=== PATIENT | male | born 1935 | race Caucasian/White ===

== ENCOUNTER 2016-09-07 19:42 | Inpatient (IN) ==
[2016-09-07] MEDS ORDERED: DICYCLOMINE 20 MG/2 ML AMP IM ONE ×2 (20:14→20:47)
[2016-09-07] MEDS ORDERED: METOCLOPRAMIDE 10 MG/2 ML VIAL IV STA (20:14)
[2016-09-07] MEDS ORDERED: PANTOPRAZOLE 40 MG VIAL IV STA (20:14)
[2016-09-07] MEDS ORDERED: ONDANSETRON 4 MG/2 ML VIAL IV STA (20:14)
--- NOTE | 2016-09-07 20:20 | Emergency Department Note ---
Arrival - Arrival Chief Complaint: Chest Pain Stated Complaint: SWOLLEN KNEES/FLUID/STOMACH PAINS/CHEST PAINS ED Nursing Triage Note: pt to triage , pt was c/o cp this morning along with lower ext swelling . pt seen dr marino. this morning. pt had labs/ ekg this am. pt states he is week and swelling to lower ext. pcp spoke with dr ugzman and told to come to ed. pt hr in 130. pt was to start cardizem in am. Mode of Arrival: Wheelchair Limitations: No Limitations Source: Patient Time Seen by Provider: 09/07/16 20:14 - History of Present Illness HPI Narrative: This 81-year-old white male presents with several months of progressive pedal edema, dyspnea on exertion, and generalized weakness. Today he had transient left-sided chest pain associated with nausea and vomiting but no diaphoresis or shortness of breath for which he went to his primary care physician. In association with these symptoms he has had some left lower quadrant abdominal pain without chills, fever, or diarrhea. The patient and the family denies any history of diverticulitis. Because of the complaints of chest pain Dr. Guzman was called by the primary care physician and he advised the patient to go the emergency room. Currently the patient is in no acute medical distress. Onset (ago): month(s) (Patient presents months after onset of symptoms) Allergies/Adverse Reactions: Allergies Allergy/AdvReac Type Severity Reaction Status Date / Time dexamethasone AdvReac Severe Palpitation Verified 09/07/16 19:57 s Home Medications: Home Medications Medication Instructions Recorded Confirmed Type Allopurinol 100 mg PO DAILY 05/19/15 09/07/16 History Bisoprolol Fumarate 5 mg PO DAILY 05/19/15 09/07/16 History HYDROcodone/ACETAMIN 10-325 [[place] 1 tablet PO BID PRN 05/19/15 09/07/16 History 10-325] Nitroglycerin Sl Tab [Nitrostat] 0.4 mg SL Q5M PRN 05/19/15 09/07/16 History Omeprazole 20 mg PO BEDTIME 05/19/15 09/07/16 History Rosuvastatin [Crestor] 5 mg PO DAILY 05/19/15 09/07/16 History Venlafaxine [Effexor] 75 mg PO BID 05/19/15 09/07/16 History rOPINIRole [Requip] 1 mg PO BEDTIME 05/19/15 09/07/16 History traZODone [Desyrel] 50 mg PO BEDTIME 05/19/15 09/07/16 History Aspirin EC Tab 81 mg PO DAILY 09/07/16 09/07/16 History Cetirizine HCl [Cetirizine Tab] 10 mg PO DAILY 09/07/16 09/07/16 History Diphenoxylate/Atrop 2.5-0.025 1 tablet PO QID PRN 09/07/16 09/07/16 History [Lomotil Tab] Furosemide Tab [Lasix Tab] 40 mg PO 1200 09/07/16 09/07/16 History Furosemide Tab [Lasix Tab] 60 mg PO DAILY 09/07/16 09/07/16 History Linagliptin [Tradjenta] 5 mg PO DAILY 09/07/16 09/07/16 History Losartan Potassium 12.5 mg PO DAILY 09/07/16 09/07/16 History Tiotropium [place] [Spiriva 4 gm IH BID 09/07/16 09/07/16 History Respimat] Warfarin [Coumadin] 2.5 mg PO SUTUWETHSA 09/07/16 09/07/16 History Warfarin [Coumadin] 5 mg PO MOFR 09/07/16 09/07/16 History dilTIAZem HCl [Diltiazem ER (24 120 mg PO DAILY 09/07/16 09/07/16 History hr)] Review of System - Review of System 12 point system: reviewed and no additional remarkable complaints except as stated - Review of System Respiratory: Present: as per HPI Cardiovascular: Present: as per HPI Gastrointestinal: Present: as per HPI Medical,Surgical,& Family Hx - Medical History Cardio: History of: Cardiac Dysrhythmia, CHF, CAD, Hypertension, [place], Pacemaker Psychological: History of: Depression Neurology: History of: Cerebrovascular Accident, Migraine, Vertigo No history of: Seizures HEENT: History of: Eye Problem (CATARACTS), Dental Problems (FULL UPPER AND LOWER DENTURES) Endocrine: History of: Diabetes Mellitus (NIDDM) Respiratory: History of: Obstructive Sleep Apnea, Pneumonia, Respiratory Problems (EMPHYSEMA) Renal: History of: Renal Problems (has mild renal insufficiency, stageII) Genitourinary: History of: Bladder Problem, Prostate Problems (PROSTATE CA) Gastrointestinal: History of: GERD, Gastrointestinal Bleed, Hemorrhoids, Polyps Musculoskeletal: History of: Back/Neck Problems, Herniated Disk, Musculoskeletal Problems (OSTEOARTHRITIS) - Surgical History Cardiac Surgeries: Sugical HX of: Cardiac Catheterization, Cardiac Surgery ( OPEN HEART SURGERY) Thoracic Surgeries: Patient denies;: Lobectomy HEENT Surgeries: Surgical HX of: Eye Surgery (CATARACTS) Patient denies: Tonsilectomy & Adenoidectomy Abdominal Surgeries: Surgical HX of: Colonoscopy - Family History Family History: Reports;: Family Cancer, Family Diabetes, Family Heart Disease, Family Hypertension, Family Stroke - Social History Smoking Status: Former smoker Frequency of Alcohol Use: None Type of Drug Use: None Exam Physical Examination: GENERAL: Well developed, well nourished elderly white male in no acute distress. HEENT: Normocephalic. No trauma. Moist mucous membranes. EOMI. PERRLA. ENT NML NECK: Supple. No adenopathy. CARDIAC: Regular. No murmurs. Heart rate 120 CHEST: Clear to auscultation. No respiratory distress. O2 sat 95% ABDOMEN: Soft. Nontender. Active bowel sounds. EXTREMITIES: No trauma. Normal ROM. 2+ pedal edema. SKIN: No diaphoresis. No rash. NEURO: Alert. Oriented 3. Motor, sensory, vibratory intact. No focal deficits. Vital Signs: Vital Signs Temperature 97.6 F 09/07/16 19:49 Pulse Rate 132 H 09/07/16 19:49 Respiratory Rate 20 09/07/16 19:49 Blood Pressure 105/72 09/07/16 19:49 Course - Reevaluation(s) Reevaluation #1: Advised patient and family of the necessity of hospitalization for diuresis and stabilization. - Consultations Consultation #1: Discussed with hospitalist service who will admit for further evaluation treatment. Results - Labs CBC & BMP: 09/07/16 20:38 09/07/16 20:38 Labs: I reviewed the lab and noted the azotemic numbers in the absence of a white count - Impressions EKG: Sinus tachycardia at 125 with first-degree AV block and nonspecific intraventricular conduction delay. Likewise noted was right ventricular hypertrophy with diffuse nonspecific ST changes and probable old lateral infarct. No acute injury pattern was noted. - Diagnostic Findings Procedure: Abdominal x-ray: image reviewed by me, report reviewed by me ( Nonspecific gas and feces. No acute disease noted), Chest x-ray: image reviewed by me, report reviewed by me (Bilateral infiltrates and right-sided effusion) Disposition Clinical Impression: Congestive heart failure, Bilateral pneumonia, Renal insufficiency Case discussed with: patient, patient's family Disposition: Still a Patient Condition: Guarded Time of Disposition: 21:32
--- NOTE | 2016-09-07 20:21 | EKG Report ---
Stationary ECG Study [facility] ER Test Date: 09/07/2016 7:55:47 PM Pat Name: IRA OSBORN Department: Room: Gender: M Territory Service Representative: [place] : 1935 Requested by: Vasu Bradley Order Number: [id number] Reading MD: USHA KAN Intervals [place] Rate: 128 P: 37 FL: 215 QRS: 117 QRSD: 149 T: -78 QT: 432 QTc: 508 Interpretive Statements SINUS TACHYCARDIA WITH FIRST DEGREE AV BLOCK NONSPECIFIC INTRAVENTRICULAR CONDUCTION BLOCK RIGHT VENTRICULAR HYPERTROPHY POSSIBLE LATERAL INFARCT, AGE UNDETERMINED Electronically Signed On 09-10-16 15:05:52 CDT by USHA KAN [email or web address]
[2016-09-07] MEDS ORDERED: METOPROLOL TARTRATE 5 MG/5 ML VIAL IV STA ×2 (20:23→20:52)
[2016-09-07 20:41] LABS: Basophils % 0.4 % (0.0-0.8); Eosinophils # 0.3 10*3/uL (0.0-0.87); Eosinophils % 3.3 % (0.00-10.9); Hematocrit 34.3 VOL% (42.0-52.0); Hemoglobin 10.9 GM/DL (14.0-18.0); Immature Granulocytes % 0.4 %; Immature Granulocytes Absolute 0.03 #; Lymphocytes # 1.8 10*3/uL (1.4-4.0); Lymphocytes % 22.6 % (21.2-54.2); Mean Corpuscular HGB Conc 31.8 GM/DL (32-36); Mean Corpuscular Hemoglobin 29 PG (27-34); Mean Corpuscular Volume 91.2 FL (87-102); Mean Platelet Volume 11.2 FL (9.6-12.0); Monocytes # 0.9 10*3/uL (0.11-0.8); Monocytes % 11.8 % (1.7-12.7); Neutrophils # 4.8 10*3/uL (1.4-7.4); Neutrophils % 61.5 % (38.7-73.9); Platelet Count 163 T/CUMM (130-400); Red Blood Count 3.76 MC/CUMM (3.8-5.5); Red Cell Distribution Width 14.6 % (9.3-17.3); White Blood Count 7.8 T/CUMM (4-12)
[2016-09-07] MEDS ORDERED: ONDANSETRON 4 MG/2 ML VIAL ONE (20:46)
[2016-09-07] MEDS ORDERED: METOCLOPRAMIDE 10 MG/2 ML VIAL ONE (20:46)
[2016-09-07] MEDS ORDERED: PANTOPRAZOLE 40 MG VIAL IV ONE (20:46)
[2016-09-07] MEDS ORDERED: METOPROLOL TARTRATE 5 MG/5 ML VIAL IV ONE (20:47)
--- NOTE | 2016-09-07 20:51 | XRay Report ---
History is chest pain Comparison 07/11/2015 The heart is mildly enlarged with pacemaker present There are increasing the right greater than left reticular nodular pulmonary opacities and small right effusion superimposed on chronic changes Impression: right greater than left infiltrates versus asymmetric edema PROCEDURE INTERPRETED AT [facility] DEPARTMENT OF RADIOLOGY Final Report Signed by: Dr. Wendie Voss
[2016-09-07 20:55] LABS: INR 2.5; Partial Thromboplastin Time 35.2 SECS (0-40)
[2016-09-07 20:56] LABS: PT Patient Result 27.7 SECS
--- NOTE | 2016-09-07 20:58 | XRay Report ---
Abdomen, 2 views History is abdominal pain Mild air scattered in the bowel without small bowel dilatation, free air, or organomegaly seen seen Bilateral iliac stents are present. Impression: Nonspecific bowel gas pattern PROCEDURE INTERPRETED AT [facility] DEPARTMENT OF RADIOLOGY Final Report Signed by: Dr. Wendie Voss
[2016-09-07 21:03] LABS: Lactic Acid 1.9 MMOL/L (0.4-2.0)
[2016-09-07] MEDS ORDERED: LEVOFLOXACIN INJ 750 MG in PREMIX 1 EACH IV STA (21:03)
[2016-09-07 21:13] LABS: Alanine Aminotransferase 53 U/L (16-61); Albumin 3.3 G/DL (3.4-5.0); Alkaline Phosphatase 143 U/L (45-117); Amylase 22 U/L (25-115); Aspartate Amino Transferase 82 U/L (0-37); Blood Urea Nitrogen 35 MG/DL (7-18); Glucose 118 MG/DL (74-106); Osmolality,Calculated 291.1 MOS/KG (273-304); Sodium 142 MMOL/L (136-145); Total Protein 7.1 G/DL (6.4-8.3); Troponin I Only 0.016 NG/ML (0.00-0.045)
[2016-09-07 21:35] LABS: Apearance,Urine CLEAR (Clear); Bilirubin,Urine Negative (Negative); Blood, Urine Negative (Negative); Glucose,Urine (UA) Negative (Negative); Hyaline Casts,Urine 23 /LPF (0-3); Ketones,Urine Negative (Negative); Mucus,Urine Occasional /LPF (Occasional); Nitrite,Urine Negative (Negative); Protein,Urine Negative; RBC,Urine <1 /HPF (0-4); Squamous Epithelial Cell,Urine Occasional /HPF (0-10); Urine Color Yellow (Yellow); Urine Specific Gravity 1.011 (1.001-1.035); Urine Urobilinogen < 2.0 EU/DL (0.2-1.0); WBC,Urine <1 /HPF (0-6)
[2016-09-07] MEDS ORDERED: LEVOFLOXACIN INJ 150 ML IV ONE (22:07)
--- NOTE | 2016-09-07 22:21 | Hospitalist History & Physical ---
Assessment and Plan (1) Pneumonia Status: Acute Current Visit: Yes (2) Dyspnea on exertion Status: Acute Current Visit: Yes (3) PAD (peripheral artery disease) Status: Acute Current Visit: No (4) Pacemaker Status: Acute Current Visit: No (5) Chronic renal insufficiency, stage II (mild) Status: Acute Current Visit: No (6) Status post aorto-coronary artery bypass graft Status: Acute Current Visit: No (7) COPD (chronic obstructive pulmonary disease) Status: Acute Current Visit: No (8) CHF (congestive heart failure) Status: Acute Assessment and plan: Plan for this patient will be admission to our service. Patient needs to be on telemetry. We will check cardiac enzymes. We will treat the pneumonia. Will have to be observant of his INR daily and hold his Coumadin for now. Will consult his [facility] cardiology for their input on him. Seems to be a combination of both congestive heart failure and pneumonia Current Visit: No History of Present Illness Chief complaint: Chest pain, swelling, shortness of breath History of present illness: Mr. Trejo is a 81 year old male with multiple medical problems including coronary artery disease, congestive heart failure,'s stroke, prostate cancer, COPD, peripheral vascular disease, carotid disease and pacemaker placement who comes to the hospital today with multiple complaints. Patient's reports that for the past month patient has had some difficulties with a lot of issues. She said that it just seems like is more confused lately. That he is having these problems with swelling. Particularly his upper thighs and lower legs. He has also been complaining about shortness of breath. There has been some reported chest pain. Dr. Rodriguez she is office called Dr. Acosta today and Dr. Acosta recommended that they come up to our hospital for further evaluation. Patient had an evaluation in the emergency room. He has a combination of a pneumonia and pulmonary edema. I was consulted to admit the patient. Home Medications Medication Instructions Recorded Confirmed Type Allopurinol 100 mg PO DAILY 05/19/15 09/07/16 History Bisoprolol Fumarate 5 mg PO DAILY 05/19/15 09/07/16 History HYDROcodone/ACETAMIN 10-325 [[place] 1 tablet PO BID PRN 05/19/15 09/07/16 History 10-325] Nitroglycerin Sl Tab [Nitrostat] 0.4 mg SL Q5M PRN 05/19/15 09/07/16 History Omeprazole 20 mg PO BEDTIME 05/19/15 09/07/16 History Rosuvastatin [Crestor] 5 mg PO DAILY 05/19/15 09/07/16 History Venlafaxine [Effexor] 75 mg PO BID 05/19/15 09/07/16 History rOPINIRole [Requip] 1 mg PO BEDTIME 05/19/15 09/07/16 History traZODone [Desyrel] 50 mg PO BEDTIME 05/19/15 09/07/16 History Aspirin EC Tab 81 mg PO DAILY 09/07/16 09/07/16 History Cetirizine HCl [Cetirizine Tab] 10 mg PO DAILY 09/07/16 09/07/16 History Diphenoxylate/Atrop 2.5-0.025 1 tablet PO QID PRN 09/07/16 09/07/16 History [Lomotil Tab] Furosemide Tab [Lasix Tab] 40 mg PO 1200 09/07/16 09/07/16 History Furosemide Tab [Lasix Tab] 60 mg PO DAILY 09/07/16 09/07/16 History Linagliptin [Tradjenta] 5 mg PO DAILY 09/07/16 09/07/16 History Losartan Potassium 12.5 mg PO DAILY 09/07/16 09/07/16 History Tiotropium [place] [Spiriva 4 gm IH BID 09/07/16 09/07/16 History Respimat] Warfarin [Coumadin] 2.5 mg PO SUTUWETHSA 09/07/16 09/07/16 History Warfarin [Coumadin] 5 mg PO MOFR 09/07/16 09/07/16 History dilTIAZem HCl [Diltiazem ER (24 120 mg PO DAILY 09/07/16 09/07/16 History hr)] Allergies Allergy/AdvReac Type Severity Reaction Status Date / Time dexamethasone AdvReac Severe Palpitation Verified 09/07/16 19:57 s Medical,Surgical,& Family Hx - Medical History Cardio: History of: Cardiac Dysrhythmia, CHF, CAD, Hypertension, [place], Pacemaker Psychological: History of: Depression Neurology: History of: Cerebrovascular Accident, Migraine, Vertigo No history of: Seizures HEENT: History of: Eye Problem (CATARACTS), Dental Problems (FULL UPPER AND LOWER DENTURES) Endocrine: History of: Diabetes Mellitus (NIDDM) Respiratory: History of: Obstructive Sleep Apnea, Pneumonia, Respiratory Problems (EMPHYSEMA) Renal: History of: Renal Problems (has mild renal insufficiency, stageII) Genitourinary: History of: Bladder Problem, Prostate Problems (PROSTATE CA) Gastrointestinal: History of: GERD, Gastrointestinal Bleed, Hemorrhoids, Polyps Musculoskeletal: History of: Back/Neck Problems, Herniated Disk, Musculoskeletal Problems (OSTEOARTHRITIS) - Surgical History Cardiac Surgeries: Sugical HX of: Cardiac Catheterization, Cardiac Surgery ( OPEN HEART SURGERY) Thoracic Surgeries: Patient denies;: Lobectomy HEENT Surgeries: Surgical HX of: Eye Surgery (CATARACTS) Patient denies: Tonsilectomy & Adenoidectomy Abdominal Surgeries: Surgical HX of: Colonoscopy - Family History Family History: Reports;: Family Cancer, Family Diabetes, Family Heart Disease, Family Hypertension, Family Stroke - Social History Smoking Status: Former smoker Frequency of Alcohol Use: None Type of Drug Use: None 12 point system: reviewed and no additional remarkable complaints except as stated Exam - Constitutional Vitals: Period Temp Pulse Resp BP Sys/West Pulse Ox Last 24 Hr 97.6 F-97.6 F 131-132 20-20 105-105/72-72 General appearance: normal weight - Head Head exam: Present: normal inspection - Eye Eye exam: Present: EOMI Pupils: Present: JADON - ENT ENT exam: Present: normal exam - Neck Neck exam: Present: normal inspection - Respiratory Respiratory exam: Present: rales, rhonchi - Cardiovascular Cardiovascular exam: Present: tachycardia - GI/Abdominal GI/Abdominal exam: Present: normal bowel sounds - Extremities Exam Extremities exam: Present: edema - Back Exam Back exam: Present: normal inspection - Neurological Exam Neurological exam: Present: alert, oriented X3 Results - Labs CBC & BMP: 09/07/16 20:38 09/07/16 20:38
[2016-09-07] MEDS ORDERED: MAGNESIUM SULF RIDER 2 GM in PREMIX 1 EACH IV PRN (22:24)
[2016-09-07] MEDS ORDERED: MAGNESIUM SULF RIDER 4 GM in PREMIX 1 EACH IV PRN (22:24)
[2016-09-07] MEDS ORDERED: ONDANSETRON 4 MG/2 ML VIAL IV PRN (22:24)
[2016-09-07] MEDS ORDERED: DIPHENOXYLATE/ATROPINE 2.5-0.025 MG TABLET PO PRN (22:32)
[2016-09-08] MEDS: rOPINIRole 1 MG TABLET PO SCH ×2 (00:14→20:44)
[2016-09-08] MEDS: cefTRIAXone 1,000 MG in SODIUM CHLORIDE 0.9% 100 ML IV SCH ×2 (00:27→23:34)
[2016-09-08] MEDS: AZITHROMYCIN INJ 500 MG in SODIUM CHLORIDE 0.9% 250 ML IV SCH (01:08)
[2016-09-08 07:00] LABS: Basophils % 0.2 % (0.0-0.8); Eosinophils # 0.1 10*3/uL (0.0-0.87); Eosinophils % 0.8 % (0.00-10.9); Hematocrit 36.1 VOL% (42.0-52.0); Hemoglobin 11.1 GM/DL (14.0-18.0); Immature Granulocytes % 0.5 %; Immature Granulocytes Absolute 0.04 #; Lymphocytes # 1.7 10*3/uL (1.4-4.0); Lymphocytes % 19.4 % (21.2-54.2); Mean Corpuscular HGB Conc 30.7 GM/DL (32-36); Mean Corpuscular Hemoglobin 29 PG (27-34); Mean Corpuscular Volume 93.5 FL (87-102); Mean Platelet Volume 11.6 FL (9.6-12.0); Monocytes # 1.1 10*3/uL (0.11-0.8); Monocytes % 12.8 % (1.7-12.7); Neutrophils # 5.8 10*3/uL (1.4-7.4); Neutrophils % 66.3 % (38.7-73.9); Platelet Count 143 T/CUMM (130-400); Red Blood Count 3.86 MC/CUMM (3.8-5.5); Red Cell Distribution Width 14.7 % (9.3-17.3); White Blood Count 8.8 T/CUMM (4-12)
[2016-09-08 07:14] LABS: INR 3.2; PT Patient Result 35.9 SECS
[2016-09-08 07:34] LABS: Calcium 8.8 MG/DL (8.5-10.1); Osmolality,Calculated 288.4 MOS/KG (273-304); Potassium 4.1 MMOL/L (3.5-5.1); Total Protein 6.7 G/DL (6.4-8.3)
[2016-09-08 07:35] LABS: Troponin I Only 0.037 NG/ML (0.00-0.045)
[2016-09-08] MEDS: IPRATROPIUM 500 MCG/2.5 ML NEB RESP TX SCH ×4 (07:48→19:50)
[2016-09-08] MEDS ORDERED: ROSUVASTATIN 10 MG TABLET PO SCH (09:00)
[2016-09-08] MEDS ORDERED: DILTIAZEM CD 120 MG CAPSULE PO SCH (09:00)
[2016-09-08] MEDS ORDERED: FUROSEMIDE 40 MG TABLET PO SCH ×2 (09:00→12:00)
[2016-09-08 12:19] LABS: Bilirubin,Total 0.5 MG/DL (0.2-1.0)
--- NOTE | 2016-09-08 12:30 | Hospitalist Progress Note ---
Hospitalist: Subjective Interval history: Patient denies any chest pain, shortness of breath, nausea, or vomiting today. He reports he is hungry. Exam - Constitutional Vitals: Period Temp Pulse Resp BP Sys/West Pulse Ox Last 24 Hr 96.3 F-97.7 F 101-132 15-22 94-123/54-83 92-99 Exam: Awake, alert, and oriented to person, place and situation in no acute distress Irregularly irregular rate and rhythm with a 1/6 systolic murmur. No rubs. Clear to auscultation anteriorly diminished at the bases nonlabored breathing noted Abdomen is soft nontender nondistended positive bowel sounds no organomegaly or masses appreciated Warm and well-perfused no clubbing or cyanosis he does have +2 pitting edema of the lower extremities bilaterally Neuro exam was nonlocalizing Results - Labs CBC & BMP: 09/08/16 06:46 09/08/16 06:46 - Impressions (1)Possible Community acquired bacterial Pneumonia possibly due to GPC or GNR in a patient with COPD Status: Acute Current Visit: Yes -CXR: right greater than left infiltrates versus asymmetric edema - Cont Rocephin and Azithromycin - On Ipratropium bromide inhaled - F/U blood cultures (2) Acute on chronic systolic CHF exacerbation (congestive heart failure) Status: Acute - on Oral Lasix BID. Watch I and O closely. Daily weight. On BB. No ACEi/ARB due to elevated creatinine. Serial labs. Cardiology to see. Elevate lower extremities (3) Chronic atrial fibrillation s/p pacemaker with supratherapeutic INR - on Coumadin but currently holding due to elevated INR. Cont Cardizem and BB for rate control. Serial INR (4) PAD (peripheral artery disease) Status: Chronic Current Visit: No - ASA. Hold statin due to elevated LFTs. (5) CAD Status post aorto-coronary artery bypass graft Status: Chronic Current Visit: No -ASA, BB. Hold statin for now due to elevated LFTs (6) Elevated liver transaminases -Check serial LFTs. -Hold statin. -If continues to increase, check RUQ U/S and viral hepatitis panel. Quality Measures - Stroke Symptom Onset Unknown: No
--- NOTE | 2016-09-08 12:33 | Cardiology Consult Note ---
Assessment and Plan - Time spent with patient Time spent with patient: Greater than 30 minutes (1) Congestive heart failure (CHF) Status: Acute Assessment and plan: SEE PLAN OF CARE LISTED BELOW. Current Visit: Yes Qualifiers: Congestive heart failure type: combined Congestive heart failure chronicity : acute on chronic Qualified Code(s): I50.43 - Acute on chronic combined systolic (congestive) and diastolic (congestive) heart failure (2) Coronary artery disease Status: Chronic Assessment and plan: SEE PLAN OF CARE LISTED BELOW. Current Visit: Yes (3) Chronic atrial fibrillation Status: Chronic Assessment and plan: SEE PLAN OF CARE LISTED BELOW. Current Visit: Yes (4) History of pacemaker Status: Chronic Assessment and plan: SEE PLAN OF CARE LISTED BELOW. Current Visit: Yes (5) History of stroke Status: Chronic Assessment and plan: SEE PLAN OF CARE LISTED BELOW. Current Visit: Yes (6) Hypertension Status: Chronic Assessment and plan: SEE PLAN OF CARE LISTED BELOW. Current Visit: Yes (7) Dyslipidemia Status: Chronic Assessment and plan: SEE PLAN OF CARE LISTED BELOW. Current Visit: Yes (8) Chronic kidney disease Status: Chronic Assessment and plan: SEE PLAN OF CARE LISTED BELOW. Current Visit: Yes (9) Elevated liver enzymes Status: Acute Assessment and plan: SEE PLAN OF CARE LISTED BELOW. Current Visit: Yes (10) Sleep apnea Status: Chronic Assessment and plan: SEE PLAN OF CARE LISTED BELOW. Current Visit: Yes (11) Pneumonia Status: Acute Assessment and plan: SEE PLAN OF CARE LISTED BELOW. Current Visit: Yes (12) Status post aorto-coronary artery bypass graft Status: Chronic Assessment and plan: SEE PLAN OF CARE LISTED BELOW. Current Visit: No (13) Chronic anticoagulation Status: Chronic Assessment and plan: SEE PLAN OF CARE LISTED BELOW. Current Visit: Yes History of Present Illness - Data of Consult Patient: known to practice within the last 3 years Consult date: 09/08/16 Requesting Physician: Dandre Gonzales Primary care physician: Roberto Khan - Consult Narrative Reason for consult: Congestive heart failure History of present illness: Wall Attendant: Dr. Acosta PCP: Dr. Khan Mr. Trejo is a 81 year old male with known history of coronary artery disease , routinely followed by Dr. Acosta. Patient presented to the emergency department yesterday with complaints of shortness of breath and lower extremity swelling. Patient has a past medical history of coronary artery disease, congestive heart failure (systolic), chronic atrial fibrillation ( anticoagulated with Coumadin), CVA, COPD, peripheral vascular disease, carotid disease (status post carotid endarterectomy), pacemaker, hypertension, dyslipidemia and chronic kidney disease. Patient underwent heart catheterization May 2015 with the following impressions noted: Impression: Significant disease in all 3 vessels Critical disease in at least 3 lesions in the proximal mid and mid LAD along with calcification of the LAD Multiple lesions in the left circumflex with calcification-ostial, multiple mid vessel lesions, occluded distal circumflex with collaterals from the right coronary Occluded proximal right coronary artery with right to right and [id number] collaterals Occluded vein graft to the second and first obtuse marginal--may have been recent, based on symptoms, within the last 6 weeks or so Mild to moderate global left ventricular systolic function, left ejection fraction about 45% Inferobasal akinesis Mildly ectatic aortic root with no significant aortic regurgitation Small infrarenal abdominal aortic aneurysm-incidentally noted on the aortogram Mild mitral regurgitation Moderate elevation of LVEDP, 20 mmHg Angiogram right femoral artery Angio-Seal of the right femoral artery Patient was in medically treated. However, medical therapy failed and patient subsequently underwent coronary bypass grafting July 2015 with [place] to circumflex and right internal mammary graft to LAD. Patient presented to [facility] emergency department yesterday afternoon with complaints of worsening lower extremity swelling, weakness, fatigue and dyspnea on exertion. He reports that the symptoms have continued to progress over the past 2 months. He tells me that he was admitted to [facility] approximately 2 months ago with a stomach virus. Family in the room tells me that he has not been on himself ever since being discharged in July. He confirms that he has not been able to sleep well for quite some time due to orthopnea and PND. Yesterday, he developed very mild type of chest pain while he was sitting down. He describes as a sharp pain that only lasted 1 minute. He reports that this is the only time that he has experienced chest pain in quite some time. Yesterday, he had an appointment with Dr. Khan. Dr. Burns increased patient's Lasix dose from 40 mg daily to 40 mg at noon and 60 mg every morning. He also contacted Dr. Acosta to give him an update on his patient. At that point, Dr. Acosta recommended that he be admitted to [facility] for further evaluation. Patient denies fever, chills, nausea, melena and hematochezia. He confirms abdominal distention, cough, orthopnea, dyspnea on exertion, lower extremity edema and PND. Patient has been admitted under hospitalist's service and housed in the telemetry unit. Cardiology has been consulted to further assist with patient's congestive heart failure. Of note, patient recently underwent sleep study. AutoPap with 8 cm H2O-20 cm H2O was ordered. However, he still has not received his CPAP machine. At this point, Dr. Acosta would like to consult Dr. Shepard so he can arrange Mr. Trejo to have CPAP while he is here in the hospital. Dr. Shepard has evaluated patient and we will arrange for patient to have a CPAP tonight. Patient was seen and examined on the telemetry unit. He is resting in bed in no acute distress, requiring oxygen at 2 L via nasal cannula. Patient is currently without chest pain, heaviness and tightness. Per secured entrance monitor, he is in atrial fibrillation with rapid ventricular response, heart rate of 120. Chest x-ray reveals pneumonia versus pulmonary edema. BNP 571. INR is mildly supratherapeutic at 3.2. Creatinine is noted to be 2.2 with a BUN of 43. Liver enzymes are mildly elevated. I have discussed with Dr. Acosta, at this point we will attempt to rate control him. I have added digoxin IV now , repeat in 6 hours. His creatinine will be monitored closely. Have also changed his Cardizem to 60 mg every 6 hours, will hold for systolic blood pressure less than 95 at dose. Aldactone has been added to patient's medication regimen, will hold for systolic blood pressure less than 95 at dose. Will monitor daily weights and strict I's and O's. Will further optimize patient's heart failure medication regimen as his blood pressure will allow. ASSESSMENT/PLAN: 1. CONGESTIVE HEART FAILURE, MIXED, SYSTOLIC AND DIASTOLIC, ACUTE ON CHRONIC - Most recent ejection fraction, May 2015 is 45%. LVEDP May 2015 was 20 mmHg. I have ordered an echocardiogram in order to reevaluate patient's LV and diastolic function. At this point, we will continue patient's current Lasix dosing as it was just increased yesterday per Dr. Khan and add low- dose Aldactone. Continue beta-ani. Avoiding TAPAN inhibitor and ARB due to fear of worsening renal function. Patient's blood pressure is borderline low, we will watch this closely. Strict I's and O's and daily weights. Will further optimize patient's heart failure medication regimen once patient's blood pressure will allow. 2. CORONARY ARTERY DISEASE - Patient has history of coronary artery disease with history of bypass grafting July 2015 with [place] to circumflex and right internal mammary to LAD. This appears to be clinically stable. Patient is without symptoms concerning for angina, cardiac biomarkers have been negative and EKG is without ischemic changes. At this time we will continue aspirin, beta-ani and lipid-lowering agent. 3. CHRONIC ATRIAL FIBRILLATION - Patient is currently in atrial fibrillation with a rapid ventricular response, heart rates in the 120s. I have discussed with Dr. Acosta and at this point, we will attempt to rate control him. I will give a one-time dose of digoxin 0.25 mg IV now, repeat in 6 hours. Will monitor his creatinine closely. Cardizem will be changed to 60 mg p.o. now and every 6 hours. Will hold Cardizem for systolic blood pressure less than 95 at dose as patient's blood pressure is borderline low. Historically, patient has been anticoagulated with Coumadin. Today's INR is 3.2. Coumadin is currently on hold. We will continue to hold Coumadin as patient's INR is supratherapeutic today. Will check INR daily and resume Coumadin when able. 4. CHRONIC ANTICOAGULATION - Patient is chronically anticoagulated with Coumadin due to chronic atrial fibrillation and history of CVA. INR today is 3.2. Daily INR. Will reinitiate Coumadin once INR will allow. 5. HISTORY OF SINGLE CHAMBER PACEMAKER - Continue current plan of care. 6. HISTORY OF STROKE - Continue current plan of care with anticoagulation. Daily INR. 7. HYPERTENSION - This is clinically stable. Continue current plan of care. 8. DYSLIPIDEMIA - Continue current plan of care with lipid lowering agent. Will add lipid panel to patient's morning labs. 9. CHRONIC KIDNEY DISEASE - Baseline appears to be around 1.5. Creatinine today is 2.2. Will avoid TAPAN inhibitor and ARB due to fear of worsening renal function. 10. POSSIBLE PNUEMONIA - Afebrile. White blood cell count within normal limits. Patient is being treated empirically with IV antibiotics per hospital medicine. Further management will be deferred to attending. 11. ELEVATED LIVER ENZYMES - We will continue to monitor these with daily liver function studies. May need to discontinue statin if these continue to rise. Consider consulting GI. 12. SLEEP APNEA - CPAP nightly. Dr. Shepard has seen patient and has arranged patient to have CPAP tonight. Further plan and addendum to follow per Dr. Acosta. CC: Xenia Stephenson MD - Home Medications and Allergies Home Medications: Home Medications Medication Instructions Recorded Confirmed Type Allopurinol 100 mg PO DAILY 05/19/15 09/07/16 History Bisoprolol Fumarate 5 mg PO DAILY 05/19/15 09/07/16 History HYDROcodone/ACETAMIN 10-325 [[place] 1 tablet PO BID PRN 05/19/15 09/07/16 History 10-325] Nitroglycerin Sl Tab [Nitrostat] 0.4 mg SL Q5M PRN 05/19/15 09/07/16 History Omeprazole 20 mg PO BEDTIME 05/19/15 09/07/16 History Rosuvastatin [Crestor] 5 mg PO DAILY 05/19/15 09/07/16 History Venlafaxine [Effexor] 75 mg PO BID 05/19/15 09/07/16 History rOPINIRole [Requip] 1 mg PO BEDTIME 05/19/15 09/07/16 History traZODone [Desyrel] 50 mg PO BEDTIME 05/19/15 09/07/16 History Aspirin EC Tab 81 mg PO DAILY 09/07/16 09/07/16 History Cetirizine HCl [Cetirizine Tab] 10 mg PO DAILY 09/07/16 09/07/16 History Diphenoxylate/Atrop 2.5-0.025 1 tablet PO QID PRN 09/07/16 09/07/16 History [Lomotil Tab] Furosemide Tab [Lasix Tab] 40 mg PO 1200 09/07/16 09/07/16 History Furosemide Tab [Lasix Tab] 60 mg PO DAILY 09/07/16 09/07/16 History Linagliptin [Tradjenta] 5 mg PO DAILY 09/07/16 09/07/16 History Losartan Potassium 12.5 mg PO DAILY 09/07/16 09/07/16 History Tiotropium [place] [Spiriva 4 gm IH BID 09/07/16 09/07/16 History Respimat] Warfarin [Coumadin] 2.5 mg PO SUTUWETHSA 09/07/16 09/07/16 History Warfarin [Coumadin] 5 mg PO MOFR 09/07/16 09/07/16 History dilTIAZem HCl [Diltiazem ER (24 120 mg PO DAILY 09/07/16 09/07/16 History hr)] Pramoxine HCl [Sarna Sensitive 1 applic TOP QID PRN 09/08/16 09/08/16 History Lotion] Allergies/Adverse Reactions: Allergies Allergy/AdvReac Type Severity Reaction Status Date / Time dexamethasone AdvReac Severe Palpitation Verified 09/07/16 19:57 s - Constitutional Constitutional: Present: fatigue, lethargy, malaise, weakness, weight gain. Absent: chills, fever(s), headache(s) - Cardiovascular Cardiovascular: Present: chest pain at rest, dyspnea on exertion, edema, orthopnea, PND. Absent: claudication, diaphoresis, radiating jaw, neck or arm pain, lightheadedness, palpitations - Respiratory Respiratory: Present: cough, dyspnea on exertion, snoring. Absent: hemoptysis, wheezing, pain on inspiration - Gastrointestinal Gastrointestinal: Present: abdominal pain, bloating, change in bowel habits, vomiting. Absent: coffee ground emesis, heartburn, hematemesis, hematochezia, loose stools, melena, nausea - Neurological Neurological: Absent: abnormal gait, abnormal speech, behavioral changes, dizziness, headache(s), numbness, paresthesias, syncope - Hematologic/Lymphatic Hematologic/Lymphatic: Absent: easy bleeding, easy bruising, lymphadenopathy Medical,Surgical,& Family Hx - Medical History Cardio: History of: Cardiac Dysrhythmia, CHF, CAD, Hypertension, SC, Pacemaker Psychological: History of: Depression Neurology: History of: Cerebrovascular Accident, Migraine, Vertigo No history of: Seizures HEENT: History of: Eye Problem (CATARACTS), Dental Problems (FULL UPPER AND LOWER DENTURES) Endocrine: History of: Diabetes Mellitus (NIDDM), Dyslipidemia Respiratory: History of: Obstructive Sleep Apnea, Pneumonia, Respiratory Problems (EMPHYSEMA) Renal: History of: Renal Problems (has mild renal insufficiency, stageII) Genitourinary: History of: Bladder Problem, Prostate Problems (PROSTATE CA) Gastrointestinal: History of: GERD, Gastrointestinal Bleed, Hemorrhoids, Polyps Musculoskeletal: History of: Back/Neck Problems, Herniated Disk, Musculoskeletal Problems (OSTEOARTHRITIS) Other: History of: Cancer (prostate ca) - Surgical History Cardiac Surgeries: Sugical HX of: Cardiac Catheterization, Cardiac Surgery ( OPEN HEART SURGERY x2 2016 and 1993) HEENT Surgeries: Surgical HX of: Eye Surgery (CATARACTS) Abdominal Surgeries: Surgical HX of: Abdominal Surgery, Colonoscopy - Family History Family History: Reports;: Family Cancer, Family Diabetes, Family Heart Disease, Family Hypertension, Family Stroke - Social History Smoking Status: Former smoker Frequency of Alcohol Use: None Type of Drug Use: None Marital Status: Lives With:: Children Functional capacity: independent ambulation Physical Examination Vital Signs Temp Pulse Resp BP 97.6 F 131 H 20 105/72 09/07/16 19:49 09/07/16 19:49 09/07/16 19:49 09/07/16 19:49 Other: General: Appears well with no apparent distress. Pleasant and cooperative. Appears comfortable. HEENT: PERRL, normocephalic, atraumatic. Mucous membranes moist. No jaundice noted. Conjunctiva moist and clear, sclerae anicteric Neck: No JVD/HJR, no thyromegaly or lymphadenopathy noted. No carotid bruit appreciated Cardiac: Irregular rhythm. 2/6 systolic murmur Lungs: Clear to auscultation with decreased breath sounds bilateral bases without accessory muscle use to assist the respiratory pattern. Currently requiring oxygen via nasal cannula. Abdomen: Soft, bowel sounds normoactive. No abdominal bruit or thrill noted. Extremities: No clubbing, cyanosis noted. 3+ bilateral lower extremity edema. Upper extremity pulses 2+. Lower extremity pulses 2+. Skin: No unusual lesions or rashes. No skin breakdown appreciated. Neuro: Awake, alert and oriented 3. Moves all extremities well without hemiparesis or paralysis. Result/EKG - Labs CBC & BMP: 09/08/16 06:46 09/08/16 06:46 Lab Results: I have reviewed the past 24 hour labs Labs: Laboratory Results - last 24 hr 09/07/16 09/07/16 09/07/16 20:29 20:38 20:38 WBC 7.8 RBC 3.76 L Hgb 10.9 L Hct 34.3 L MCV 91.2 MCH 29 MCHC 31.8 L RDW 14.6 Plt Count 163 MPV 11.2 Neut % (Auto) 61.5 Lymph % (Auto) 22.6 Maury % (Auto) 11.8 Eos % (Auto) 3.3 Baso % (Auto) 0.4 Neut # (Auto) 4.8 Lymph # (Auto) 1.8 Maury # (Auto) 0.9 H Eos # (Auto) 0.3 Baso # (Auto) 0.0 Immature Gran % 0.4 Nucleated RBC % 0.0 Immature Gran # 0.03 Nucleated RBCs # 0.00 INR PT Patient/Control Mix Circ Anticoag PTT Sodium 142 Potassium 4.0 Chloride 107 Carbon Dioxide 22 Anion Gap 17.0 H BUN 35 H Creatinine 1.90 H GFR Calculation 35 BUN/Creatinine Ratio 18.00 Glucose 118 H Calculated Osmolality 291.1 Lactic Acid 1.9 Calcium 9.0 Total Bilirubin 0.40 AST 82 H ALT 53 Alkaline Phosphatase 143 H Total Creatine Kinase 164 CK-MB (CK-2) 3.2 Troponin I 0.016 B-Natriuretic Peptide Total Protein 7.1 Albumin 3.3 L Globulin 3.8 H Albumin/Globulin Ratio 0.8 L Amylase 22 L Lipase 71.0 L Urine Color Yellow Urine Appearance Clear Urine pH 5.0 Ur Specific [place] 1.011 Urine Protein Negative Urine Glucose (UA) Negative Urine Ketones Negative Urine Blood Negative Urine Nitrate Negative Urine Bilirubin Negative Urine Urobilinogen < 2.0 H Urine Leukocytes Negative Urine RBC <1 Urine WBC <1 Ur Squamous Epith Cells Occasional Hyaline Casts 23 Urine Mucus Occasional Ur Culture Indicated? Not indicated 09/07/16 09/07/16 09/08/16 20:38 20:38 06:46 WBC RBC Hgb Hct MCV MCH MCHC RDW Plt Count MPV Neut % (Auto) Lymph % (Auto) Maury % (Auto) Eos % (Auto) Baso % (Auto) Neut # (Auto) Lymph # (Auto) Maury # (Auto) Eos # (Auto) Baso # (Auto) Immature Gran % Nucleated RBC % Immature Gran # Nucleated RBCs # INR 2.5 3.2 PT Patient/Control Mix 27.7 D 35.9 D Circ Anticoag PTT 35.2 D Sodium Potassium Chloride Carbon Dioxide Anion Gap BUN Creatinine GFR Calculation BUN/Creatinine Ratio Glucose Calculated Osmolality Lactic Acid Calcium Total Bilirubin AST ALT Alkaline Phosphatase Total Creatine Kinase CK-MB (CK-2) Troponin I B-Natriuretic Peptide 571 H Total Protein Albumin Globulin Albumin/Globulin Ratio Amylase Lipase Urine Color Urine Appearance Urine pH Ur Specific [place] Urine Protein Urine Glucose (UA) Urine Ketones Urine Blood Urine Nitrate Urine Bilirubin Urine Urobilinogen Urine Leukocytes Urine RBC Urine WBC Ur Squamous Epith Cells Hyaline Casts Urine Mucus Ur Culture Indicated? 09/08/16 09/08/16 09/08/16 06:46 06:46 06:46 WBC 8.8 RBC 3.86 Hgb 11.1 L Hct 36.1 L MCV 93.5 MCH 29 MCHC 30.7 L RDW 14.7 Plt Count 143 MPV 11.6 Neut % (Auto) 66.3 Lymph % (Auto) 19.4 L Maury % (Auto) 12.8 H Eos % (Auto) 0.8 Baso % (Auto) 0.2 Neut # (Auto) 5.8 Lymph # (Auto) 1.7 Maury # (Auto) 1.1 H Eos # (Auto) 0.1 Baso # (Auto) 0.0 Immature Gran % 0.5 Nucleated RBC % 0.0 Immature Gran # 0.04 Nucleated RBCs # 0.00 INR PT Patient/Control Mix Circ Anticoag PTT Sodium 140 Potassium 4.1 Chloride 105 Carbon Dioxide 24 Anion Gap 15.1 H BUN 43 H Creatinine 2.20 H GFR Calculation 30 BUN/Creatinine Ratio 19.00 Glucose 89 Calculated Osmolality 288.4 Lactic Acid Calcium 8.8 Total Bilirubin 0.50 AST 127 H ALT 76 H Alkaline Phosphatase 137 H Total Creatine Kinase 172 CK-MB (CK-2) 4.1 H Troponin I 0.037 B-Natriuretic Peptide Total Protein 6.7 Albumin 3.0 L Globulin 3.7 H Albumin/Globulin Ratio 0.8 L Amylase Lipase Urine Color Urine Appearance Urine pH Ur Specific [place] Urine Protein Urine Glucose (UA) Urine Ketones Urine Blood Urine Nitrate Urine Bilirubin Urine Urobilinogen Urine Leukocytes Urine RBC Urine WBC Ur Squamous Epith Cells Hyaline Casts Urine Mucus Ur Culture Indicated? - Diagnostic Findings Procedure: Chest x-ray: report reviewed by me - EKG EKG results: interpreted by me, sinus rhythm EKG shows: tachycardia Quality Measures - Stroke Symptom Onset Unknown: No
--- NOTE | 2016-09-08 12:33 | Sleep Medicine Progress Note ---
Sleep Medicine Subjective Interval history: This patient is known to me from previous sleep evaluation many years ago. He was diagnosed with obstructive sleep apnea but unable to tolerate CPAP. He developed significant heart disease and just recently was reevaluated by Dr. Khan in [place]. He had a sleep study which revealed severe sleep apnea according to his with a diagnostic AHI of 36. The patient was actually to go to sleep clinic today to crop picker his CPAP machine but developed congestive heart failure and was admitted and could not get that machine. Dr. Acosta contacted Dr. Khan and the patient was to be set on AutoPap from 8-20 cm. We will go ahead and empirically set him up on AutoPap to use while hospitalized. Exam (Progress Note) - Constitutional Vitals: Period Temp Pulse Resp BP Sys/West Pulse Ox Last 24 Hr 96.3 F-97.7 F 101-132 15-22 94-123/54-83 92-99 Results - Labs CBC & BMP: 09/08/16 06:46 09/08/16 06:46
[2016-09-08] MEDS ORDERED: DIGOXIN 0.5 MG/2 ML AMP IV ONE ×2 (14:11→21:00)
[2016-09-08] MEDS: VENLAFAXINE 75 MG TABLET PO SCH ×2 (14:51→21:26)
[2016-09-08] MEDS: SPIRONOLACTONE 25 MG TABLET PO SCH (14:52)
[2016-09-08] MEDS: PANTOPRAZOLE 40 MG TABLET PO SCH (14:52)
[2016-09-08] MEDS: BISOPROLOL 5 MG TABLET PO SCH (14:52)
[2016-09-08] MEDS: ASPIRIN EC 81 MG TABLET PO SCH (14:52)
[2016-09-08] MEDS: ALLOPURINOL 100 MG TABLET PO SCH (14:52)
[2016-09-08] MEDS: DILTIAZEM 60 MG TABLET PO SCH ×3 (14:52→23:02)
[2016-09-08] MEDS: CETIRIZINE 10 MG TABLET PO SCH (14:52)
--- NOTE | 2016-09-08 15:28 | XRay Report ---
History short of breath Bilateral decubitus films obtained No significant layering of pleural fluid seen in the left chest There is layering of 1.5 cm of pleural fluid in the right chest. Underlying reticular nodular parenchymal opacities again seen. The heart is enlarged Impression: Small right pleural effusion PROCEDURE INTERPRETED AT [facility] DEPARTMENT OF RADIOLOGY Final Report Signed by: Dr. Wendie Voss
[2016-09-08] MEDS: FUROSEMIDE 40 MG/4 ML VIAL IV SCH (16:13)
--- NOTE | 2016-09-08 19:02 | ECHO Report ---
Vin Trejo 09/08/2016 Exam Date: 14:28 Referring Physician: marlene Palomo Technologist: SHERLYN DUBON Age: 81 Ht (in): 67 Wt (lb): 170 MExam Location: [facility] Gender: Echo [id number]: Dyspnea, unspecified, Atrial fibrillIndications:ation, Presence of cardiac pacemaker, Pneumonia, COPD BP: 107 / 72 HR: 122 Atrial fibrillationRhythm: GoodTechnical Quality: IMPRESSIONS Mild left ventricul ar hypertrophy. Left ventricular ejection fraction is estimated at 30 - 35 %. flat IVS in SA view suggests pulm HTN; 3 + increased right ventricular size. 2 + incr right atrium. The left atrium is 2+ enlarged. Moderate mitral valve regurgitation. Aortic valve sclerosis. Mild aortic valve regurgitation. [id number] tricuspid valve regurgitation. Tricuspid regurgitation velocities suggest a PAP of 34 mmHg. Trace pulmonary valve regurgitation. MEASUREMENTS (Male / Female) Normal Values 2D ECHO LV Diastolic Diameter PLAX 4.7 cm 4.2 - 5.9 / 3.9 - 5.3 cm LV Systolic Diameter PLAX 4.0 cm LV Fractional Shortening PLAX 15.5 % IVS Diastolic Thickness 1.3 cm 0.6 - 1.0 / 0.6 - 0.9 cm LVPW Diastolic Thickness 1.2 cm 0.6 - 1.0 / 0.6 - 0.9 cm RV Internal Dim ED PLAX 3.6 cm Aortic Root Diameter 3.1 cm LA Systolic Diameter LX 4.6 cm 3.0 - 4.0 / 2.7 - 3.8 cm DOPPLER TR Peak Velocity 244.0 cm/s TR Peak Gradient 23.8 mmHg FINDINGS Left Ventricle Normal left ventricular cavity size. Mild left ventricul ar hypertrophy. Left ventricular ejection fraction is estimated at 30 - 35 %. Right Ventricle 3 + increased right ventricular size. Right Atrium 2 + incr right atrium. Left Atrium The left atrium is 2+ enlarged. Mitral Valve Mitral valve sclerosis. Moderate mitral valve regurgitation. Aortic Valve Aortic valve sclerosis. Mild aortic valve regurgitation. Tricuspid Valve Morphologically normal tricuspid valve. Yrwemcif-[id number] tricuspid valve regurgitation. Tricuspid regurgitation velocities suggest a PAP of 34 mmHg. Pulmonic Valve Morphologically normal pulmonic valve. Trace pulmonary valve regurgitation. Pericardium Normal pericardium without effusion. Aorta Normal ascending aorta dimension. Taqueria Acosta MD (Electronically Signed) 08 September 2016 Final Date: 19:01
[2016-09-08] MEDS ORDERED: DILTIAZEM 30 MG TABLET PO ONE (22:31)
[2016-09-09] MEDS: AZITHROMYCIN INJ 500 MG in SODIUM CHLORIDE 0.9% 250 ML IV SCH (00:50)
[2016-09-09 04:50] LABS: Basophils % 0.2 % (0.0-0.8); Eosinophils # 0.3 10*3/uL (0.0-0.87); Eosinophils % 3.7 % (0.00-10.9); Hematocrit 34.3 VOL% (42.0-52.0); Hemoglobin 10.6 GM/DL (14.0-18.0); Immature Granulocytes % 0.3 %; Immature Granulocytes Absolute 0.03 #; Lymphocytes # 2.2 10*3/uL (1.4-4.0); Lymphocytes % 24.8 % (21.2-54.2); Mean Corpuscular HGB Conc 30.9 GM/DL (32-36); Mean Corpuscular Hemoglobin 28 PG (27-34); Mean Platelet Volume 11.6 FL (9.6-12.0); Monocytes # 1.2 10*3/uL (0.11-0.8); Monocytes % 13.7 % (1.7-12.7); NRBC # 0.02 10*3/uL; Neutrophils # 5.1 10*3/uL (1.4-7.4); Neutrophils % 57.3 % (38.7-73.9); Platelet Count 141 T/CUMM (130-400); Red Blood Count 3.73 MC/CUMM (3.8-5.5); Red Cell Distribution Width 14.6 % (9.3-17.3); White Blood Count 8.8 T/CUMM (4-12)
[2016-09-09 05:00] LABS: INR 4.2
[2016-09-09 05:07] LABS: PT Patient Result 48.8 SECS
[2016-09-09 05:19] LABS: Bilirubin,Direct 0.3 MG/DL (0.0-0.20); Bilirubin,Indirect 0.2 MG/DL (0.0-1.0); Bilirubin,Total 0.5 MG/DL (0.2-1.0); Calcium 8.6 MG/DL (8.5-10.1); Magnesium 2.6 MG/DL (1.8-2.4); Osmolality,Calculated 288.5 MOS/KG (273-304); Potassium 4.2 MMOL/L (3.5-5.1); Total Protein 6.5 G/DL (6.4-8.3)
[2016-09-09 05:21] LABS: Albumin 2.9 G/DL (3.4-5.0); Bilirubin,Total 0.7 MG/DL (0.2-1.0); Calcium 8.6 MG/DL (8.5-10.1); Magnesium 2.5 MG/DL (1.8-2.4); Osmolality,Calculated 289.4 MOS/KG (273-304); Phosphorous 3.8 MG/DL (2.5-4.9); Potassium 4.3 MMOL/L (3.5-5.1); Risk Ratio 3.3; Total Protein 6.5 G/DL (6.4-8.3); VLDL CHOLESTEROL 12.8 MG/DL
[2016-09-09 06:56] LABS: Hepatitis A Ab IgM Result Negative (Negative); Hepatitis B Core IgM Result Negative (Negative); Hepatitis B Surface Ag Quant 0.27 Index; Hepatitis B Surface Ag Result Negative (Negative); Hepatitis C Virus Ab Quant 0.15 Index; Hepatitis C Virus Ab Result Negative (Negative)
[2016-09-09] MEDS: IPRATROPIUM 500 MCG/2.5 ML NEB RESP TX SCH ×4 (07:35→18:54)
[2016-09-09] MEDS: PANTOPRAZOLE 40 MG TABLET PO SCH (09:22)
[2016-09-09] MEDS: DILTIAZEM 60 MG TABLET PO SCH ×4 (09:22→21:48)
[2016-09-09] MEDS: SPIRONOLACTONE 25 MG TABLET PO SCH (09:22)
[2016-09-09] MEDS: ASPIRIN EC 81 MG TABLET PO SCH (09:22)
[2016-09-09] MEDS: ALLOPURINOL 100 MG TABLET PO SCH (09:23)
[2016-09-09] MEDS: BISOPROLOL 5 MG TABLET PO SCH ×2 (09:23→21:31)
[2016-09-09] MEDS: CETIRIZINE 10 MG TABLET PO SCH (09:23)
[2016-09-09] MEDS: VENLAFAXINE 75 MG TABLET PO SCH ×2 (09:23→21:29)
[2016-09-09] MEDS: FUROSEMIDE 40 MG/4 ML VIAL IV SCH ×2 (09:24→16:32)
--- NOTE | 2016-09-09 12:18 | Hospitalist Progress Note ---
Hospitalist: Subjective Interval history: SOB better. Still with LE edema. reports itchy red rash on left submammary area and right flank towards the back. Was putting triamcinolone and sarna on it for 2 days with no improvement. No fever. Denies cough. Tolerating po. +BM. Exam - Constitutional Vitals: Period Temp Pulse Resp BP Sys/West Pulse Ox Last 24 Hr 96.7 F-97.7 F 91-129 16-22 105-118/56-84 95-99 Exam: Awake, alert, and oriented to person, place and situation in no acute distress Irregularly irregular rate and rhythm with a 1/6 systolic murmur. No rubs. Clear to auscultation anteriorly diminished at the bases nonlabored breathing noted Abdomen is soft nontender nondistended positive bowel sounds no organomegaly or masses appreciated Warm and well-perfused no clubbing or cyanosis he does have +2 pitting edema of the lower extremities bilaterally Neuro exam was nonlocalizing Skin: erythema rashed macule under left breast and right flank across and mostly on back. Results - Labs CBC & BMP: 09/09/16 04:20 09/09/16 04:20 - Impressions 1)Possible Community acquired bacterial Pneumonia possibly due to GPC or GNR in a patient with COPD Status: Acute Current Visit: Yes -CXR: right greater than left infiltrates versus asymmetric edema - Cont Rocephin and Azithromycin - On Ipratropium bromide inhaled - F/U blood cultures (2) Acute on chronic systolic CHF exacerbation (congestive heart failure) (EF 30 -35% with moderate MR/severe TR) Status: Acute - Cont IV Lasix BID. Will add Albumin for maintain BP as it drops with diuresis. Watch I and O closely. Daily weight. On BB. No ACEi/ARB due to elevated creatinine. Serial labs. Cardiology following. Elevate lower extremities (3) Chronic atrial fibrillation s/p pacemaker with supratherapeutic INR - on Coumadin but currently holding due to elevated INR. Cont Cardizem and BB for rate control. Serial INR. May need vitamin K (low dose) (4) PAD (peripheral artery disease) Status: Chronic Current Visit: No - ASA. Hold statin due to elevated LFTs. (5) CAD Status post aorto-coronary artery bypass graft Status: Chronic Current Visit: No -ASA, BB. Hold statin for now due to elevated LFTs (6) Elevated liver transaminases suspect due to liver congestion due to CHF -Check serial LFTs. -Hold statin. -If continues to increase, check RUQ U/S - viral hepatitis panel negative. (7) CKD stage 3 vs. KATHLEEN on CKD3 - watch creatinine closely with diuresis (8) Erythematous rash ? fungal - start Nystatin and follow-up results DVT prophylaxis- on Coumadin D/W nurse, pt and at bedside. All questions answered. Quality Measures - Stroke Symptom Onset Unknown: No
[2016-09-09] MEDS ORDERED: PHYTONADIONE 5 MG TABLET PO ONE (12:20)
--- NOTE | 2016-09-09 13:19 | Cardiology Progress Note ---
Assessment and Plan - Time spent with patient Time spent with patient: Greater than 30 minutes (1) Congestive heart failure (CHF) Status: Acute Assessment and plan: SEE PLAN OF CARE LISTED BELOW Current Visit: Yes Qualifiers: Congestive heart failure type: combined Congestive heart failure chronicity : acute on chronic Qualified Code(s): I50.43 - Acute on chronic combined systolic (congestive) and diastolic (congestive) heart failure (2) Elevated liver enzymes Status: Acute Assessment and plan: SEE PLAN OF CARE LISTED BELOW Current Visit: Yes (3) Pneumonia Status: Acute Assessment and plan: SEE PLAN OF CARE LISTED BELOW Current Visit: Yes (4) Chronic anticoagulation Status: Chronic Assessment and plan: SEE PLAN OF CARE LISTED BELOW Current Visit: Yes (5) Chronic kidney disease Status: Chronic Assessment and plan: SEE PLAN OF CARE LISTED BELOW Current Visit: Yes Qualifiers: Chronic kidney disease stage: stage 3 (moderate) Qualified Code(s): N18.3 - Chronic kidney disease, stage 3 (moderate) (6) Coronary artery disease Status: Chronic Assessment and plan: SEE PLAN OF CARE LISTED BELOW Current Visit: Yes (7) Dyslipidemia Status: Chronic Assessment and plan: SEE PLAN OF CARE LISTED BELOW Current Visit: Yes (8) History of pacemaker Status: Chronic Assessment and plan: SEE PLAN OF CARE LISTED BELOW Current Visit: Yes (9) History of stroke Status: Chronic Assessment and plan: SEE PLAN OF CARE LISTED BELOW Current Visit: Yes (10) Hypertension Status: Chronic Assessment and plan: SEE PLAN OF CARE LISTED BELOW Current Visit: Yes (11) Sleep apnea Status: Chronic Assessment and plan: SEE PLAN OF CARE LISTED BELOW Current Visit: Yes (12) COPD (chronic obstructive pulmonary disease) Status: Chronic Assessment and plan: SEE PLAN OF CARE LISTED BELOW Current Visit: No (13) Hyperlipidemia Status: Chronic Assessment and plan: SEE PLAN OF CARE LISTED BELOW Current Visit: No (14) PAD (peripheral artery disease) Status: Chronic Assessment and plan: SEE PLAN OF CARE LISTED BELOW Current Visit: No Cardiology - PN: Subj Interval history: TINT LAYER: DR. ACOSTA PCP: DR. SMITH SUMMARY: Mr. Trejo, 81M, was admitted September 07, 2016 with shortness of breath and lower extremity edema. He was diagnosed with acute on chronic congestive heart failure versus CAP. History of known coronary artery disease (see cardiac catheterization May 2015), hypertension, dyslipidemia, peripheral vascular disease. History of ICM (EFnow 35% down from 45% January 2016), chronic atrial fib (takes Coumadin for stroke prevention), CVA, COPD, peripheral vascular disease, carotid disease (status post carotid endarterectomy ), pacemaker, and chronic kidney disease. Patient's coronary artery disease is complicated. He underwent CABG July 2015 ([place] - Cx, JUD[facility] - LAD). Patient was seen and examined on the telemetry unit. He is resting in bed in no acute distress, requiring oxygen at 2 L via nasal cannula. Patient is currently without chest pain, heaviness and tightness. Per fishing vessel deckhand, he is in atrial fibrillation with rapid ventricular response, heart rate of 120. Chest x-ray reveals pneumonia versus pulmonary edema. BNP 571. INR is mildly supratherapeutic at 3.2. Creatinine is noted to be 2.2 with a BUN of 43. Liver enzymes are mildly elevated. I have discussed with Dr. Acosta, at this point we will attempt to rate control him. I have added digoxin IV now , repeat in 6 hours. His creatinine will be monitored closely. Have also changed his Cardizem to 60 mg every 6 hours, will hold for systolic blood pressure less than 95 at dose. Aldactone has been added to patient's medication regimen, will hold for systolic blood pressure less than 95 at dose. Will monitor daily weights and strict I's and O's. Will further optimize patient's heart failure medication regimen as his blood pressure will allow. SEPTEMBER 09, 2016: Echocardiogram reveals: EF 30-35%, moderate mitral regurgitation , PA P 34 mmHg. Shortness of breath is better this morning. Still has lower extremity swelling. I & O does not reflect weight loss. Continues to have atrial fibrillation with rapid ventricular response. Averaging 90-120 bpm. Creatinine 2.0 today, minimally improved overnight. I will add 1 dose IV digoxin this morning. May consider daily low-dose oral digoxin if creatinine improves. Cannot increase beta blockade as blood pressure will not allow. Avoiding TAPAN inhibitor due to fear of worsening renal insufficiency. Statin is being withheld at this time due to elevated liver enzymes. ASSESSMENT/PLAN: 1. CONGESTIVE HEART FAILURE, MIXED, SYSTOLIC AND DIASTOLIC, ACUTE ON CHRONIC - LVEF 35%, NYHA Class III. Continue current plan of care. Daily weights and strict intake and output. Continue with IV Lasix. 2. CORONARY ARTERY DISEASE - Continue ASA, betablocker and, when able, TAPAN. Holding lipid lowering agent due to worsening liver enzymes. 3. CHRONIC ATRIAL FIBRILLATION -remains in A. fib with RVR. Heart rates averaging 90-120 bpm. I will give another dose of IV digoxin today and monitor his heart rate. Unfortunately, cannot increase beta ani as blood pressure will not allow. We will monitor closely due to his renal insufficiency the use of digoxin. INR tomorrow morning. Holding Coumadin as he is supra therapeutic. 4. CHRONIC ANTICOAGULATION -remains supratherapeutic (INR 4.2). Check daily and resume when able 5. HISTORY OF SINGLE CHAMBER PACEMAKER - Continue current plan of care. 6. HISTORY OF STROKE - Continue current plan of care with anticoagulation. Daily INR. 7. HYPERTENSION - adequately controlled. 8. DYSLIPIDEMIA - Holding lipid lowering agent due to recent increase in liver enzymes. 9. CHRONIC KIDNEY DISEASE - Stage II-III. Creatinine 2.0 (improved overnight ). Baseline 1.5. 10. POSSIBLE CAP - treated appropriately with antibiotics. 11. ELEVATED LIVER ENZYMES -continue to rise. Holding lipid-lowering agent. Consider consulting GI, will defer to attending. 12. SLEEP APNEA - CPAP nightly. Dr. Shepard has seen patient and has arranged patient to have CPAP Exam (Progress Note) - Constitutional Vitals: Period Temp Pulse Resp BP Sys/West Pulse Ox Last 24 Hr 96.7 F-97.7 F 91-129 16-22 105-118/56-84 95-99 Exam: General: Appears well with no apparent distress. Pleasant and cooperative. Appears comfortable. HEENT: PERRL, normocephalic, atraumatic. Mucous membranes moist. No jaundice noted. Conjunctiva moist and clear, sclerae anicteric Neck: No JVD/HJR, no thyromegaly or lymphadenopathy noted. No carotid bruit appreciated Cardiac: Irregularly irregular rhythm. 2/6 systolic murmur Lungs: Clear to auscultation with decreased breath sounds bilateral bases without accessory muscle use to assist the respiratory pattern. Currently requiring oxygen via nasal cannula. Abdomen: Soft, bowel sounds normoactive. No abdominal bruit or thrill noted. Extremities: No clubbing, cyanosis noted. 2+ bilateral lower extremity edema. Upper extremity pulses 2+. Lower extremity pulses 2+. Skin: No unusual lesions or rashes. No skin breakdown appreciated. Neuro: Awake, alert and oriented 3. Moves all extremities well without hemiparesis or paralysis. Result/EKG - Labs CBC & BMP: 09/09/16 04:20 09/09/16 04:20 Lab Results: I have reviewed the past 24 hour labs Labs: Laboratory Results - last 24 hr 09/09/16 09/09/16 09/09/16 04:20 04:20 04:20 WBC 8.8 RBC 3.73 L Hgb 10.6 L Hct 34.3 L MCV 92.0 MCH 28 MCHC 30.9 L RDW 14.6 Plt Count 141 MPV 11.6 Neut % (Auto) 57.3 Lymph % (Auto) 24.8 [place] % (Auto) 13.7 H Eos % (Auto) 3.7 Baso % (Auto) 0.2 Neut # (Auto) 5.1 Lymph # (Auto) 2.2 [place] # (Auto) 1.2 H Eos # (Auto) 0.3 Baso # (Auto) 0.0 Immature Gran % 0.3 Nucleated RBC % 0.2 Immature Gran # 0.03 Nucleated RBCs # 0.02 INR 4.2 PT Patient/Control Mix 48.8 D Sodium 140 Potassium 4.3 Chloride 105 Carbon Dioxide 24 Anion Gap 15.3 H BUN 44 H Creatinine 2.10 H GFR Calculation 31 BUN/Creatinine Ratio 20.00 Glucose 106 Calculated Osmolality 289.4 Calcium 8.6 Phosphorus 3.8 Magnesium 2.5 H Total Bilirubin 0.70 Direct Bilirubin Indirect Bilirubin AST 209 H ALT 125 H Alkaline Phosphatase 125 H Total Protein 6.5 Albumin 2.9 L Globulin 3.6 H Albumin/Globulin Ratio 0.8 L Triglycerides Cholesterol LDL Cholesterol VLDL Cholesterol HDL Cholesterol Heart Disease Risk Ratio Hepatitis A IgM Ab Hep Bs Antigen Hep B Core IgM Ab Hepatitis C Antibody 09/09/16 09/09/16 09/09/16 04:20 04:20 04:20 WBC RBC Hgb Hct MCV MCH MCHC RDW Plt Count MPV Neut % (Auto) Lymph % (Auto) [place] % (Auto) Eos % (Auto) Baso % (Auto) Neut # (Auto) Lymph # (Auto) [place] # (Auto) Eos # (Auto) Baso # (Auto) Immature Gran % Nucleated RBC % Immature Gran # Nucleated RBCs # INR PT Patient/Control Mix Sodium 139 Potassium 4.2 Chloride 104 Carbon Dioxide 25 Anion Gap 14.2 BUN 45 H Creatinine 2.00 H GFR Calculation 33 BUN/Creatinine Ratio 22.00 H Glucose 106 Calculated Osmolality 288.5 Calcium 8.6 Phosphorus Magnesium 2.6 H Total Bilirubin Direct Bilirubin Indirect Bilirubin AST ALT Alkaline Phosphatase Total Protein Albumin Globulin Albumin/Globulin Ratio Triglycerides 64 Cholesterol 89 LDL Cholesterol 52.0 VLDL Cholesterol 12.8 HDL Cholesterol 27 L Heart Disease Risk Ratio 3.30 Hepatitis A IgM Ab Negative Hep Bs Antigen Negative Hep B Core IgM Ab Negative Hepatitis C Antibody Negative 09/09/16 04:20 WBC RBC Hgb Hct MCV MCH MCHC RDW Plt Count MPV Neut % (Auto) Lymph % (Auto) [place] % (Auto) Eos % (Auto) Baso % (Auto) Neut # (Auto) Lymph # (Auto) [place] # (Auto) Eos # (Auto) Baso # (Auto) Immature Gran % Nucleated RBC % Immature Gran # Nucleated RBCs # INR PT Patient/Control Mix Sodium Potassium Chloride Carbon Dioxide Anion Gap BUN Creatinine GFR Calculation BUN/Creatinine Ratio Glucose Calculated Osmolality Calcium Phosphorus Magnesium Total Bilirubin 0.50 Direct Bilirubin 0.30 H Indirect Bilirubin 0.2 AST 207 H ALT 125 H Alkaline Phosphatase 125 H Total Protein 6.5 Albumin 3.0 L Globulin Albumin/Globulin Ratio Triglycerides Cholesterol LDL Cholesterol VLDL Cholesterol HDL Cholesterol Heart Disease Risk Ratio Hepatitis A IgM Ab Hep Bs Antigen Hep B Core IgM Ab Hepatitis C Antibody - Diagnostic Findings Procedure: Chest x-ray: report reviewed by me - EKG EKG results: interpreted by me EKG shows: atrial fibrillation Quality Measures - Stroke Symptom Onset Unknown: No
[2016-09-09] MEDS: ALBUMIN 25% 25 GM in PREMIX 1 EACH IV SCH ×2 (13:50→23:57)
[2016-09-09] MEDS ORDERED: DIGOXIN 0.5 MG/2 ML AMP IV SCH (14:00)
[2016-09-09] MEDS: NYSTATIN CREAM 15 GM TUBE TOP SCH ×2 (15:14→21:30)
[2016-09-09] MEDS ORDERED: BISOPROLOL 5 MG TABLET PO ONE (15:37)
[2016-09-09] MEDS: rOPINIRole 1 MG TABLET PO SCH (21:30)
[2016-09-09] MEDS: cefTRIAXone 1,000 MG in SODIUM CHLORIDE 0.9% 100 ML IV SCH (23:20)
[2016-09-10 04:25] LABS: Basophils % 0.2 % (0.0-0.8); Eosinophils # 0.3 10*3/uL (0.0-0.87); Eosinophils % 3.5 % (0.00-10.9); Hematocrit 34.2 VOL% (42.0-52.0); Hemoglobin 10.6 GM/DL (14.0-18.0); Immature Granulocytes % 0.4 %; Immature Granulocytes Absolute 0.04 #; Lymphocytes # 1.9 10*3/uL (1.4-4.0); Lymphocytes % 20.9 % (21.2-54.2); Mean Corpuscular Hemoglobin 29 PG (27-34); Mean Corpuscular Volume 92.4 FL (87-102); Mean Platelet Volume 11.5 FL (9.6-12.0); Monocytes # 1.1 10*3/uL (0.11-0.8); Monocytes % 12.5 % (1.7-12.7); Neutrophils # 5.6 10*3/uL (1.4-7.4); Neutrophils % 62.5 % (38.7-73.9); Platelet Count 136 T/CUMM (130-400); Red Cell Distribution Width 14.6 % (9.3-17.3)
[2016-09-10 04:37] LABS: INR 3.3
[2016-09-10 04:54] LABS: Calcium 9.4 MG/DL (8.5-10.1); Magnesium 2.5 MG/DL (1.8-2.4); Osmolality,Calculated 293.3 MOS/KG (273-304); Potassium 4.8 MMOL/L (3.5-5.1)
[2016-09-10 05:00] LABS: Albumin 3.5 G/DL (3.4-5.0); Bilirubin,Direct 0.4 MG/DL (0.0-0.20); Bilirubin,Indirect 0.8 MG/DL (0.0-1.0); Bilirubin,Total 1.2 MG/DL (0.2-1.0); Total Protein 6.9 G/DL (6.4-8.3)
[2016-09-10 05:17] LABS: PT Patient Result 38.1 SECS
[2016-09-10] MEDS: IPRATROPIUM 500 MCG/2.5 ML NEB RESP TX SCH ×4 (07:57→19:58)
[2016-09-10] MEDS: FUROSEMIDE 40 MG/4 ML VIAL IV SCH ×2 (09:30→16:01)
[2016-09-10] MEDS: SPIRONOLACTONE 25 MG TABLET PO SCH (09:31)
[2016-09-10] MEDS: DILTIAZEM 60 MG TABLET PO SCH ×4 (09:31→21:23)
[2016-09-10] MEDS: AZITHROMYCIN 250 MG TABLET PO SCH (09:32)
[2016-09-10] MEDS: VENLAFAXINE 75 MG TABLET PO SCH ×2 (09:32→21:22)
[2016-09-10] MEDS: ASPIRIN EC 81 MG TABLET PO SCH (09:32)
[2016-09-10] MEDS: ALLOPURINOL 100 MG TABLET PO SCH (09:32)
[2016-09-10] MEDS: PANTOPRAZOLE 40 MG TABLET PO SCH (09:32)
[2016-09-10] MEDS: NYSTATIN CREAM 15 GM TUBE TOP SCH ×3 (09:33→21:23)
[2016-09-10] MEDS ORDERED: BISACODYL 10 MG SUPP RECTAL PRN (09:33)
[2016-09-10] MEDS: BISOPROLOL 5 MG TABLET PO SCH ×2 (09:33→21:22)
[2016-09-10] MEDS: CETIRIZINE 10 MG TABLET PO SCH (09:33)
--- NOTE | 2016-09-10 12:42 | Hospitalist Progress Note ---
Hospitalist: Subjective Interval history: Patient complains of lower abdominal pain and decreased urine output. He reports he is to push on his stomach to empty his bladder. He has not had a bowel movement over the last 24 hours. He did eat some breakfast. Bladder scan was ordered and 300ml seen. Pt was able to void and 700 ml collected. reports abd pain improved. He complained of nausea and received Zofran Exam - Constitutional Vitals: Period Temp Pulse Resp BP Sys/West Pulse Ox Last 24 Hr 97.1 F-97.6 F 58-122 15-22 105-139/6-69 85-98 Exam: GEN: Awake, alert, and oriented to person, place and situation in no acute distress, hearing impairment CV: Irregularly irregular rate and rhythm with a 1/6 systolic murmur. No rubs. LUNGS: Clear to auscultation anteriorly diminished at the bases nonlabored breathing noted Abdomen: is soft, nontender, nondistended, positive bowel sounds. No organomegaly or masses appreciated EXT: Warm and well-perfused no clubbing or cyanosis he does have +2 pitting edema of the lower extremities bilaterally Neuro: exam was nonlocalizing Skin: erythema macules/patch under left breast and right flank across and mostly on back less erythematous. Results - Labs CBC & BMP: 09/10/16 03:58 09/10/16 03:58 - Impressions 1)Possible Community acquired bacterial Pneumonia possibly due to GPC or GNR in a patient with COPD Status: Acute Current Visit: Yes -CXR: right greater than left infiltrates versus asymmetric edema - Cont Rocephin and Azithromycin - On Ipratropium bromide inhaled - F/U blood cultures (2) Acute on chronic systolic CHF exacerbation (congestive heart failure) (EF 30 -35% with moderate MR/severe TR) Status: Acute - Cont IV Lasix BID. Will add Albumin for maintain BP as it drops with diuresis. Watch I and O closely. Daily weight. On BB. No ACEi/ARB due to elevated creatinine. Serial labs. Cardiology following. Elevate lower extremities (3) Chronic atrial fibrillation s/p pacemaker with supratherapeutic INR- INR improving - on Coumadin but currently holding due to elevated INR. Cont Cardizem and BB for rate control. Serial INR. s/p Vitamin K 2.5 mg po x 1 09/09 (4) PAD (peripheral artery disease) Status: Chronic Current Visit: No - ASA. Hold statin due to elevated LFTs. (5) CAD Status post aorto-coronary artery bypass graft Status: Chronic Current Visit: No -ASA, BB. Hold statin for now due to elevated LFTs (6) Elevated liver transaminases suspect due to liver congestion due to CHF -LFTs increasing. Check serial LFTs. -Hold statin. -check RUQ U/S -viral hepatitis panel negative. (7) CKD stage 3 vs. KATHLEEN on CKD3 - watch creatinine closely with diuresis. Creatinine stable (8) Erythematous rash ? fungal - start Nystatin and follow-up results (9) Urinary retention - start flomax. Bladder scan q6h. May stop if voiding ok. (10) Constipation - dulcolax oral/ suppository ordered. DVT prophylaxis- on Coumadin D/W nurse, pt and . All questions answered. I will be away several days. One of my associates will follow in my absence. Quality Measures - Stroke Symptom Onset Unknown: No
--- NOTE | 2016-09-10 17:14 | Cardiology Progress Note ---
Assessment and Plan - Time spent with patient Time spent with patient: Greater than 30 minutes (1) Systolic and diastolic CHF, acute on chronic Status: Acute Assessment and plan: 09/10/16: Heart failure seems symptomatically better Watch creatinine with diuresis. Is minimally increased. These may need to be slightly dry to keep out of heart failure So far, is tolerating the Aldactone well Right lateral left lateral decubitus x-ray showed nothing on the left and minimal on the right. We will not do thoracentesis Treat for pneumonia and heart failure He was encouraged to use his AutoPap anytime he sleeps, even for a nap. He voiced understanding and agrees with the plan. Current Visit: Yes (2) Hypoalbuminemia Status: Acute Current Visit: Yes (3) Congestive heart failure (CHF) Status: Acute Current Visit: Yes Qualifiers: Congestive heart failure type: combined Congestive heart failure chronicity : acute on chronic Qualified Code(s): I50.43 - Acute on chronic combined systolic (congestive) and diastolic (congestive) heart failure (4) Dyspnea on exertion Status: Acute Current Visit: Yes (5) Pneumonia Status: Acute Current Visit: Yes (6) Chronic anticoagulation Status: Chronic Current Visit: Yes (7) Chronic atrial fibrillation Status: Chronic Current Visit: Yes (8) Chronic kidney disease Status: Chronic Current Visit: Yes Qualifiers: Chronic kidney disease stage: stage 3 (moderate) Qualified Code(s): N18.3 - Chronic kidney disease, stage 3 (moderate) (9) Coronary artery disease Status: Chronic Current Visit: Yes (10) History of pacemaker Status: Chronic Current Visit: Yes (11) History of stroke Status: Chronic Current Visit: Yes (12) Hypertension Status: Chronic Current Visit: Yes (13) Sleep apnea Status: Chronic Current Visit: Yes (14) Chronic renal insufficiency, stage II (mild) Status: Acute Current Visit: No (15) Decreased hearing Status: Acute Current Visit: No (16) Diabetes Status: Acute Current Visit: No (17) Pacemaker Status: Acute Current Visit: No (18) CHF (congestive heart failure) Status: Chronic Current Visit: No (19) COPD (chronic obstructive pulmonary disease) Status: Chronic Current Visit: No (20) Hyperlipidemia Status: Chronic Current Visit: No (21) PAD (peripheral artery disease) Status: Chronic Current Visit: No (22) Status post aorto-coronary artery bypass graft Status: Chronic Current Visit: No Cardiology - PN: Subj Interval history: No chest pain. Less short of breath. Exam (Progress Note) - Constitutional Vitals: Period Temp Pulse Resp BP Sys/West Pulse Ox Last 24 Hr 97.3 F-97.6 F 58-108 15-22 105-139/55-69 85-98 Exam: HEENT: Pupils equal, reactive to light and accommodation Neck: NoJVD or bruit Lungs clear to auscultation Heart: irRegular rhythm rate with normal S1 and S2. Apical S4 Abdomen: No hepatosplenomegaly Spine/extremities: No clubbing, cyanosis; mild lower extremity edema Neuro: Nonfocal Psych: No depression or anxiety Result/EKG - Labs CBC & BMP: 09/10/16 03:58 09/10/16 03:58 Lab Results: I have reviewed the past 24 hour labs Labs: Laboratory Results - last 24 hr 09/10/16 09/10/16 09/10/16 03:58 03:58 03:58 WBC 9.0 RBC 3.70 L Hgb 10.6 L Hct 34.2 L MCV 92.4 MCH 29 MCHC 31.0 L RDW 14.6 Plt Count 136 MPV 11.5 Neut % (Auto) 62.5 Lymph % (Auto) 20.9 L [place] % (Auto) 12.5 Eos % (Auto) 3.5 Baso % (Auto) 0.2 Neut # (Auto) 5.6 Lymph # (Auto) 1.9 [place] # (Auto) 1.1 H Eos # (Auto) 0.3 Baso # (Auto) 0.0 Immature Gran % 0.4 Nucleated RBC % 0.0 Immature Gran # 0.04 Nucleated RBCs # 0.00 INR 3.3 PT Patient/Control Mix 38.1 D Sodium 141 Potassium 4.8 Chloride 105 Carbon Dioxide 24 Anion Gap 16.8 H BUN 45 H Creatinine 2.10 H GFR Calculation 32 BUN/Creatinine Ratio 21.00 H Glucose 118 H Calculated Osmolality 293.3 Calcium 9.4 Magnesium 2.5 H Total Bilirubin Direct Bilirubin Indirect Bilirubin AST ALT Alkaline Phosphatase B-Natriuretic Peptide Total Protein Albumin 09/10/16 09/10/16 03:58 03:58 WBC RBC Hgb Hct MCV MCH MCHC RDW Plt Count MPV Neut % (Auto) Lymph % (Auto) [place] % (Auto) Eos % (Auto) Baso % (Auto) Neut # (Auto) Lymph # (Auto) [place] # (Auto) Eos # (Auto) Baso # (Auto) Immature Gran % Nucleated RBC % Immature Gran # Nucleated RBCs # INR PT Patient/Control Mix Sodium Potassium Chloride Carbon Dioxide Anion Gap BUN Creatinine GFR Calculation BUN/Creatinine Ratio Glucose Calculated Osmolality Calcium Magnesium Total Bilirubin 1.20 H Direct Bilirubin 0.40 H Indirect Bilirubin 0.8 AST 223 H ALT 154 H Alkaline Phosphatase 116 B-Natriuretic Peptide 1049 H Total Protein 6.9 Albumin 3.5 Quality Measures - Stroke Symptom Onset Unknown: No
[2016-09-10] MEDS: TAMSULOSIN 0.4 MG CAPSULE PO SCH (21:22)
[2016-09-10] MEDS: BISACODYL 5 MG TABLET PO SCH (21:22)
[2016-09-10] MEDS: rOPINIRole 1 MG TABLET PO SCH (21:22)
[2016-09-11] MEDS: cefTRIAXone 1,000 MG in SODIUM CHLORIDE 0.9% 100 ML IV SCH (03:41)
[2016-09-11 04:03] LABS: Basophils % 0.2 % (0.0-0.8); Eosinophils # 0.4 10*3/uL (0.0-0.87); Eosinophils % 4.7 % (0.00-10.9); Hematocrit 32.7 VOL% (42.0-52.0); Hemoglobin 10.1 GM/DL (14.0-18.0); Immature Granulocytes % 0.5 %; Immature Granulocytes Absolute 0.04 #; Lymphocytes # 1.7 10*3/uL (1.4-4.0); Lymphocytes % 19.9 % (21.2-54.2); Mean Corpuscular HGB Conc 30.9 GM/DL (32-36); Mean Corpuscular Hemoglobin 28 PG (27-34); Mean Corpuscular Volume 90.6 FL (87-102); Mean Platelet Volume 11.6 FL (9.6-12.0); Monocytes % 11.9 % (1.7-12.7); Neutrophils # 5.4 10*3/uL (1.4-7.4); Neutrophils % 62.8 % (38.7-73.9); Platelet Count 137 T/CUMM (130-400); Red Blood Count 3.61 MC/CUMM (3.8-5.5); Red Cell Distribution Width 14.7 % (9.3-17.3); White Blood Count 8.6 T/CUMM (4-12)
[2016-09-11 04:16] LABS: INR 1.7; PT Patient Result 18.7 SECS
[2016-09-11 04:20] LABS: Calcium 8.7 MG/DL (8.5-10.1); Magnesium 2.4 MG/DL (1.8-2.4); Osmolality,Calculated 288.4 MOS/KG (273-304); Potassium 3.5 MMOL/L (3.5-5.1)
[2016-09-11 04:26] LABS: Albumin 3.2 G/DL (3.4-5.0); Bilirubin,Direct 0.3 MG/DL (0.0-0.20); Bilirubin,Indirect 0.5 MG/DL (0.0-1.0); Bilirubin,Total 0.8 MG/DL (0.2-1.0); Total Protein 6.5 G/DL (6.4-8.3)
[2016-09-11] MEDS: IPRATROPIUM 500 MCG/2.5 ML NEB RESP TX SCH ×4 (07:36→19:53)
--- NOTE | 2016-09-11 09:11 | Ultrasound Report ---
Referring Physician: Xenia Stephenson MD Exam: US right upper quadrant Date: September 11, 2016 Reason: Nausea, elevated liver function tests Comparison: None Technique: Grayscale and color flow Doppler images of the right abdomen were obtained. Ultrasound images were captured and stored. Findings: The liver measures 14.3 cm in length. No suspicious hepatic lesion is identified. There is echogenic material within the gallbladder, which is concerning for sludge. There is also a questionable 0.9 cm gallbladder wall polyp. The gallbladder wall is prominent, but this is nonspecific given the presence of ascites. The common bile duct is normal in size, measuring 0.4 cm in diameter. The visualized pancreas is unremarkable. The right kidney measures 10.5 x 4.8 x 4.7 cm. No right hydronephrosis or suspicious renal lesion is identified. There is mild ascites, mainly adjacent to the liver. There is also right pleural fluid. Impression: 1. Gallbladder sludge is present, but there is no convincing sonographic evidence of acute cholecystitis. The gallbladder wall is prominent, but this is nonspecific in the setting of ascites. 2. Questionable 0.9 cm gallbladder wall polyp. Follow-up would be helpful given its size 3. Mild ascites. 4. Right pleural fluid. PROCEDURE INTERPRETED AT [facility] DEPARTMENT OF RADIOLOGY Final Report Signed by: Dr. Yamil Carroll
[2016-09-11] MEDS: SPIRONOLACTONE 25 MG TABLET PO SCH (09:29)
[2016-09-11] MEDS: FUROSEMIDE 40 MG/4 ML VIAL IV SCH ×2 (09:29→17:07)
[2016-09-11] MEDS: CETIRIZINE 10 MG TABLET PO SCH (09:30)
[2016-09-11] MEDS: VENLAFAXINE 75 MG TABLET PO SCH ×2 (09:30→20:13)
[2016-09-11] MEDS: PANTOPRAZOLE 40 MG TABLET PO SCH (09:30)
[2016-09-11] MEDS: AZITHROMYCIN 250 MG TABLET PO SCH (09:30)
[2016-09-11] MEDS: ASPIRIN EC 81 MG TABLET PO SCH (09:30)
[2016-09-11] MEDS: NYSTATIN CREAM 15 GM TUBE TOP SCH ×3 (09:30→20:14)
[2016-09-11] MEDS: DILTIAZEM 60 MG TABLET PO SCH ×3 (09:30→17:07)
[2016-09-11] MEDS: BISOPROLOL 5 MG TABLET PO SCH ×2 (09:30→20:14)
[2016-09-11] MEDS: ALLOPURINOL 100 MG TABLET PO SCH (09:31)
--- NOTE | 2016-09-11 11:08 | Cardiology Progress Note ---
<Heather Clark - Last Filed: 09/11/16 10:19> Assessment and Plan (1) Congestive heart failure (CHF) Status: Acute Assessment and plan: SEE PLAN OF CARE LISTED BELOW. Current Visit: Yes Qualifiers: Congestive heart failure type: systolic Congestive heart failure chronicity : acute on chronic Qualified Code(s): I50.23 - Acute on chronic systolic ( congestive) heart failure (2) Coronary artery disease Status: Chronic Assessment and plan: SEE PLAN OF CARE LISTED BELOW. Current Visit: Yes (3) Chronic atrial fibrillation Status: Chronic Assessment and plan: SEE PLAN OF CARE LISTED BELOW. Current Visit: Yes (4) History of pacemaker Status: Chronic Assessment and plan: SEE PLAN OF CARE LISTED BELOW. Current Visit: Yes (5) History of stroke Status: Chronic Assessment and plan: SEE PLAN OF CARE LISTED BELOW. Current Visit: Yes (6) Hypertension Status: Chronic Assessment and plan: SEE PLAN OF CARE LISTED BELOW. Current Visit: Yes (7) Dyslipidemia Status: Chronic Assessment and plan: SEE PLAN OF CARE LISTED BELOW. Current Visit: Yes (8) Chronic kidney disease Status: Chronic Assessment and plan: SEE PLAN OF CARE LISTED BELOW. Current Visit: Yes Qualifiers: Chronic kidney disease stage: stage 3 (moderate) Qualified Code(s): N18.3 - Chronic kidney disease, stage 3 (moderate) (9) Elevated liver enzymes Status: Acute Assessment and plan: SEE PLAN OF CARE LISTED BELOW. Current Visit: Yes (10) Sleep apnea Status: Chronic Assessment and plan: SEE PLAN OF CARE LISTED BELOW. Current Visit: Yes (11) Pneumonia Status: Acute Assessment and plan: SEE PLAN OF CARE LISTED BELOW. Current Visit: Yes (12) Status post aorto-coronary artery bypass graft Status: Chronic Assessment and plan: SEE PLAN OF CARE LISTED BELOW. Current Visit: No (13) Chronic anticoagulation Status: Chronic Assessment and plan: SEE PLAN OF CARE LISTED BELOW. 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 KAN PCP: DR. SMITH SUMMARY: Mr. Trejo, 81M, was admitted September 07, 2016 with shortness of breath and lower extremity edema. He was diagnosed with acute on chronic congestive heart failure versus CAP. History of known coronary artery disease (see cardiac catheterization May 2015), hypertension, dyslipidemia, peripheral vascular disease. History of ICM (EFnow 35% down from 45% January 2016), chronic atrial fib (takes Coumadin for stroke prevention), CVA, COPD, peripheral vascular disease, carotid disease (status post carotid endarterectomy ), pacemaker, and chronic kidney disease. Patient's coronary artery disease is complicated. He underwent CABG July 2015 ([place] - Cx, JUDY - LAD). Upon arrival to [place] emergency department he was noted to be in atrial fibrillation with rapid ventricular response, heart rates as high as 120. Chest x-ray revealed pneumonia versus pulmonary edema. BNP 571 on admission. INR was mildly supratherapeutic on admission, 3.2. Subsequently, Coumadin was placed on hold until INR was stable. Patient also has history of chronic kidney disease, stage II to stage III, baseline creatinine around 1.5. Holding lipid-lowering agent at this time due to elevated liver enzymes. Echocardiogram was done this admission which revealed EF 30-35% (this has decreased from 45% January 2016), moderate mitral regurgitation, PAP 34 mmHg. SEPTEMBER 11, 2016 UPDATE: Patient was seen and examined on the telemetry unit. He is resting in bed, cpap in use, in no acute distress. Patient continues to improve, reports that his breathing is much better. He still has lower extremity swelling. I & O does not reflect weight loss despite the fact that he is diuresing well with IV Lasix. Rate is better controlled today, continues to be in atrial fibrillation with heart rates in the 60s. Creatinine has trended down from 2.1 to 1.8 this morning. Avoiding TAPAN inhibitor due to fear of worsening renal insufficiency. Statin is being withheld at this time due to elevated liver enzymes. Vital signs are stable. INR today is 1.7, we will reinitiate patient's preadmission Coumadin dosage. Daily INRs. Further plan and addendum to follow per Dr. Lam. ASSESSMENT/PLAN: 1. CONGESTIVE HEART FAILURE, SYSTOLIC, ACUTE ON CHRONIC - LVEF 35% (this is down from 45% January 2016), NYHA Class III. Continue current plan of care with IV Lasix, Aldactone and beta-ani. Daily weights and strict intake and output. Avoiding TAPAN inhibitor and ARB due to fear of worsening renal function. 2. CORONARY ARTERY DISEASE - Continue ASA, betablocker and, when able, TAPAN. Holding lipid lowering agent due to worsening liver enzymes. 3. CHRONIC ATRIAL FIBRILLATION - Remains in A. fib with RVR. He is now rate controlled, heart rates in the 60's. INR this morning is stable at 1.7. At this point, I will reinitiate patient's home dose of Coumadin. Monitor with daily INR's. 4. CHRONIC ANTICOAGULATION - INR 1.7 today. At this point I will reinitiate patient's home dose of Coumadin. Will monitor with daily INR and adjust as needed. 5. HISTORY OF SINGLE CHAMBER PACEMAKER - Continue current plan of care. 6. HISTORY OF STROKE - Continue current plan of care with anticoagulation. Daily INR. 7. HYPERTENSION - Adequately controlled. 8. DYSLIPIDEMIA - Holding lipid lowering agent due to recent increase in liver enzymes. 9. CHRONIC KIDNEY DISEASE - Stage II-III. Creatinine 1.8 (improved overnight ). Baseline 1.5. 10. POSSIBLE CAP - Treated appropriately with antibiotics. 11. ELEVATED LIVER ENZYMES - Will continue to monitor. Total and direct bili also elevated. Holding lipid-lowering agent. Consider consulting GI, will defer to attending. 12. SLEEP APNEA - CPAP nightly. Exam (Progress Note) - Constitutional Vitals: Period Temp Pulse Resp BP Sys/West Pulse Ox Last 24 Hr 97.1 F-98.3 F 61-101 16-20 101-142/51-79 84-98 Exam: General: Appears well with no apparent distress. Pleasant and cooperative. Appears comfortable. HEENT: PERRL, normocephalic, atraumatic. Mucous membranes moist. No jaundice noted. Conjunctiva moist and clear, sclerae anicteric Neck: No JVD/HJR, no thyromegaly or lymphadenopathy noted. No carotid bruit appreciated Cardiac: Irregularly irregular rhythm. 2/6 systolic murmur Lungs: Clear to auscultation with decreased breath sounds bilateral bases without accessory muscle use to assist the respiratory pattern. Abdomen: Soft, bowel sounds normoactive. No abdominal bruit or thrill noted. Extremities: No clubbing, cyanosis noted. 2+ bilateral lower extremity edema. Upper extremity pulses 2+. Lower extremity pulses 2+. Skin: No unusual lesions or rashes. No skin breakdown appreciated. Neuro: Awake, alert and oriented 3. Moves all extremities well without hemiparesis or paralysis. Result/EKG - Labs CBC & BMP: 09/11/16 03:30 09/11/16 03:30 Lab Results: I have reviewed the past 24 hour labs Labs: Laboratory Results - last 24 hr 09/10/16 09/11/16 09/11/16 19:21 03:30 03:30 WBC 8.6 RBC 3.61 L Hgb 10.1 L Hct 32.7 L MCV 90.6 MCH 28 MCHC 30.9 L RDW 14.7 Plt Count 137 MPV 11.6 Neut % (Auto) 62.8 Lymph % (Auto) 19.9 L Weston % (Auto) 11.9 Eos % (Auto) 4.7 Baso % (Auto) 0.2 Neut # (Auto) 5.4 Lymph # (Auto) 1.7 Weston # (Auto) 1.0 H Eos # (Auto) 0.4 Baso # (Auto) 0.0 Immature Gran % 0.5 Nucleated RBC % 0.0 Immature Gran # 0.04 Nucleated RBCs # 0.00 INR 1.7 PT Patient/Control Mix 18.7 D Sodium Potassium Chloride Carbon Dioxide Anion Gap BUN Creatinine GFR Calculation BUN/Creatinine Ratio Glucose POC Glucose 131 H Calculated Osmolality Calcium Magnesium Total Bilirubin Direct Bilirubin Indirect Bilirubin AST ALT Alkaline Phosphatase Total Protein Albumin 09/11/16 09/11/16 03:30 03:30 WBC RBC Hgb Hct MCV MCH MCHC RDW Plt Count MPV Neut % (Auto) Lymph % (Auto) Weston % (Auto) Eos % (Auto) Baso % (Auto) Neut # (Auto) Lymph # (Auto) Weston # (Auto) Eos # (Auto) Baso # (Auto) Immature Gran % Nucleated RBC % Immature Gran # Nucleated RBCs # INR PT Patient/Control Mix Sodium 140 Potassium 3.5 Chloride 105 Carbon Dioxide 23 Anion Gap 15.5 H BUN 39 H Creatinine 1.80 H GFR Calculation 38 BUN/Creatinine Ratio 21.00 H Glucose 112 H POC Glucose Calculated Osmolality 288.4 Calcium 8.7 Magnesium 2.4 Total Bilirubin 0.80 Direct Bilirubin 0.30 H Indirect Bilirubin 0.5 AST 161 H ALT 134 H Alkaline Phosphatase 114 Total Protein 6.5 Albumin 3.2 L Quality Measures - Stroke Symptom Onset Unknown: No <Antione Lam - Last Filed: 09/11/16 17:25> Exam (Progress Note) - Constitutional Vitals: Period Temp Pulse Resp BP Sys/West Pulse Ox Last 24 Hr 96.6 F-98.3 F 61-94 18-20 101-142/51-79 84-100 Result/EKG - Labs CBC & BMP: 09/11/16 03:30 09/11/16 03:30 Labs: Laboratory Results - last 24 hr 09/10/16 09/11/16 09/11/16 19:21 03:30 03:30 WBC 8.6 RBC 3.61 L Hgb 10.1 L Hct 32.7 L MCV 90.6 MCH 28 MCHC 30.9 L RDW 14.7 Plt Count 137 MPV 11.6 Neut % (Auto) 62.8 Lymph % (Auto) 19.9 L [place] % (Auto) 11.9 Eos % (Auto) 4.7 Baso % (Auto) 0.2 Neut # (Auto) 5.4 Lymph # (Auto) 1.7 Weston # (Auto) 1.0 H Eos # (Auto) 0.4 Baso # (Auto) 0.0 Immature Gran % 0.5 Nucleated RBC % 0.0 Immature Gran # 0.04 Nucleated RBCs # 0.00 INR 1.7 PT Patient/Control Mix 18.7 D Sodium Potassium Chloride Carbon Dioxide Anion Gap BUN Creatinine GFR Calculation BUN/Creatinine Ratio Glucose POC Glucose 131 H Calculated Osmolality Calcium Magnesium Total Bilirubin Direct Bilirubin Indirect Bilirubin AST ALT Alkaline Phosphatase Total Protein Albumin 09/11/16 09/11/16 03:30 03:30 WBC RBC Hgb Hct MCV MCH MCHC RDW Plt Count MPV Neut % (Auto) Lymph % (Auto) Weston % (Auto) Eos % (Auto) Baso % (Auto) Neut # (Auto) Lymph # (Auto) Weston # (Auto) Eos # (Auto) Baso # (Auto) Immature Gran % Nucleated RBC % Immature Gran # Nucleated RBCs # INR PT Patient/Control Mix Sodium 140 Potassium 3.5 Chloride 105 Carbon Dioxide 23 Anion Gap 15.5 H BUN 39 H Creatinine 1.80 H GFR Calculation 38 BUN/Creatinine Ratio 21.00 H Glucose 112 H POC Glucose Calculated Osmolality 288.4 Calcium 8.7 Magnesium 2.4 Total Bilirubin 0.80 Direct Bilirubin 0.30 H Indirect Bilirubin 0.5 AST 161 H ALT 134 H Alkaline Phosphatase 114 Total Protein 6.5 Albumin 3.2 L
--- NOTE | 2016-09-11 11:29 | Hospitalist Progress Note ---
Assessment and Plan (1) Pneumonia Status: Acute Assessment and plan: 1)pneumonia possible with COPD- CXR with inf vs asymetric edema- on ceftrixone and azithro, nebs. cultures negative so far. 2)afib on COumadin with high INR on admission- afib rate controlled, INR down now- cards has restarted his coumadin 3)hyperlipidemia- holding statin because of elevated liver enzymes 4)urinary retention- resolved 5)constipation- try lactulose 6)CKD- creatinine down today, follow for staging. 7)dispo- home when ok with cardiology. He is improving. He told CM that he didn' t need swing bed last week, prob needs home health. Current Visit: Yes (2) Flutter-fibrillation Status: Acute Current Visit: No (3) Diabetes Status: Acute Current Visit: No (4) COPD (chronic obstructive pulmonary disease) Status: Chronic Current Visit: No (5) Chronic atrial fibrillation Status: Chronic Current Visit: Yes (6) History of pacemaker Status: Chronic Current Visit: Yes (7) Hypertension Status: Chronic Current Visit: Yes (8) Chronic kidney disease Status: Chronic Current Visit: Yes Qualifiers: Chronic kidney disease stage: stage 3 (moderate) Qualified Code(s): N18.3 - Chronic kidney disease, stage 3 (moderate) (9) Elevated liver enzymes Status: Acute Current Visit: Yes (10) Chronic anticoagulation Status: Chronic Current Visit: Yes (11) Systolic and diastolic CHF, acute on chronic Status: Acute Current Visit: Yes Hospitalist: Subjective Interval history: Mr Trejo feels good today. He no longer has trouble with urination. He has not had a BM despite laxative yesterday. He is doing well with the CPAP. Exam - Constitutional Vitals: Period Temp Pulse Resp BP Sys/West Pulse Ox Last 24 Hr 97.1 F-98.3 F 61-101 16-20 101-142/51-79 84-98 General appearance: normal weight, no acute distress - Eye Eye exam: Present: EOMI. Absent: scleral icterus - Respiratory Respiratory exam: Present: clear to auscultation bilaterally - Cardiovascular Cardiovascular exam: Present: irregular rhythm - GI/Abdominal GI/Abdominal exam: Present: normal bowel sounds, soft. Absent: tenderness - Extremities Exam Extremities exam: Present: edema (2+ lower extremities with chronic venous stasis changes. ) Results - Labs CBC & BMP: 09/11/16 03:30 09/11/16 03:30 Lab Results: I have reviewed the past 24 hour labs Quality Measures - Stroke Symptom Onset Unknown: No
[2016-09-11] MEDS ORDERED: LACTULOSE 20 GM/30 ML UDCUP PO PRN (11:35)
--- NOTE | 2016-09-11 16:57 | Sleep Medicine Progress Note ---
Sleep Medicine Subjective Interval history: Download was done on CPAP auto and patient is doing well He has 100% usage rate since started and 75% compliance rate for over 4 hours nightly. AHI is 2.4 ( normal) on auto cpap with average device pressure of 8.7. Continue present therapy and follow up with Dr. Khan. Exam (Progress Note) - Constitutional Vitals: Period Temp Pulse Resp BP Sys/West Pulse Ox Last 24 Hr 96.6 F-98.3 F 61-94 18-20 101-142/51-79 84-100 Results - Labs CBC & BMP: 09/11/16 03:30 09/11/16 03:30
[2016-09-11] MEDS ORDERED: WARFARIN 5 MG TABLET PO SCH (18:00)
[2016-09-11] MEDS: rOPINIRole 1 MG TABLET PO SCH (20:13)
[2016-09-11] MEDS: BISACODYL 5 MG TABLET PO SCH (20:13)
[2016-09-11] MEDS: TAMSULOSIN 0.4 MG CAPSULE PO SCH (20:13)
[2016-09-12] MEDS: cefTRIAXone 1,000 MG in SODIUM CHLORIDE 0.9% 100 ML IV SCH (04:06)
[2016-09-12 05:06] LABS: Basophils % 0.2 % (0.0-0.8); Eosinophils # 0.5 10*3/uL (0.0-0.87); Hematocrit 35.4 VOL% (42.0-52.0); Immature Granulocytes % 0.4 %; Immature Granulocytes Absolute 0.04 #; Lymphocytes # 2.1 10*3/uL (1.4-4.0); Lymphocytes % 20.9 % (21.2-54.2); Mean Corpuscular HGB Conc 31.1 GM/DL (32-36); Mean Corpuscular Hemoglobin 28 PG (27-34); Mean Corpuscular Volume 91.2 FL (87-102); Mean Platelet Volume 11.9 FL (9.6-12.0); Monocytes % 10.3 % (1.7-12.7); Neutrophils # 6.3 10*3/uL (1.4-7.4); Neutrophils % 63.2 % (38.7-73.9); Platelet Count 145 T/CUMM (130-400); Red Blood Count 3.88 MC/CUMM (3.8-5.5); Red Cell Distribution Width 15.1 % (9.3-17.3)
[2016-09-12 05:11] LABS: INR 1.4; PT Patient Result 15.1 SECS
[2016-09-12 05:38] LABS: Magnesium 2.3 MG/DL (1.8-2.4); Osmolality,Calculated 285.5 MOS/KG (273-304); Potassium 3.7 MMOL/L (3.5-5.1)
[2016-09-12] MEDS: IPRATROPIUM 500 MCG/2.5 ML NEB RESP TX SCH ×2 (07:43→11:48)
[2016-09-12] MEDS ORDERED: DILTIAZEM 60 MG TABLET PO SCH (09:00)
--- NOTE | 2016-09-12 09:18 | Cardiology Progress Note ---
<Heather Clark - Last Filed: 09/12/16 08:53> Assessment and Plan (1) Congestive heart failure (CHF) Status: Acute Assessment and plan: SEE PLAN OF CARE LISTED BELOW. Qualifiers: Congestive heart failure type: systolic Congestive heart failure chronicity : acute on chronic Qualified Code(s): I50.23 - Acute on chronic systolic ( congestive) heart failure (2) Coronary artery disease Status: Chronic Assessment and plan: SEE PLAN OF CARE LISTED BELOW. (3) Chronic atrial fibrillation Status: Chronic Assessment and plan: SEE PLAN OF CARE LISTED BELOW. (4) History of pacemaker Status: Chronic Assessment and plan: SEE PLAN OF CARE LISTED BELOW. (5) History of stroke Status: Chronic Assessment and plan: SEE PLAN OF CARE LISTED BELOW. (6) Hypertension Status: Chronic Assessment and plan: SEE PLAN OF CARE LISTED BELOW. (7) Dyslipidemia Status: Chronic Assessment and plan: SEE PLAN OF CARE LISTED BELOW. (8) Chronic kidney disease Status: Chronic Assessment and plan: SEE PLAN OF CARE LISTED BELOW. Qualifiers: Chronic kidney disease stage: stage 3 (moderate) Qualified Code(s): N18.3 - Chronic kidney disease, stage 3 (moderate) (9) Elevated liver enzymes Status: Acute Assessment and plan: SEE PLAN OF CARE LISTED BELOW. (10) Sleep apnea Status: Chronic Assessment and plan: SEE PLAN OF CARE LISTED BELOW. (11) Pneumonia Status: Acute Assessment and plan: SEE PLAN OF CARE LISTED BELOW. (12) Status post aorto-coronary artery bypass graft Status: Chronic Assessment and plan: SEE PLAN OF CARE LISTED BELOW. (13) Chronic anticoagulation Status: Chronic Assessment and plan: SEE PLAN OF CARE LISTED BELOW. Cardiology - PN: Subj Interval history: LOG DECKMAN: DR. ACOSTA PCP: DR. SMITH SUMMARY: Mr. Trejo, 81M, was admitted September 07, 2016 with shortness of breath and lower extremity edema. He was diagnosed with acute on chronic congestive heart failure versus CAP. History of known coronary artery disease (see cardiac catheterization May 2015), hypertension, dyslipidemia, peripheral vascular disease. History of ICM (EFnow 35% down from 45% January 2016), chronic atrial fib (takes Coumadin for stroke prevention), CVA, COPD, peripheral vascular disease, carotid disease (status post carotid endarterectomy ), pacemaker, and chronic kidney disease. Patient's coronary artery disease is complicated. He underwent CABG July 2015 ([place] - Cx, JUDY - LAD). Upon arrival to [place] emergency department he was noted to be in atrial fibrillation with rapid ventricular response, heart rates as high as 120. Chest x-ray revealed pneumonia versus pulmonary edema. BNP 571 on admission. INR was mildly supratherapeutic on admission, 3.2. Subsequently, Coumadin was placed on hold until INR was stable. Patient also has history of chronic kidney disease, stage II to stage III, baseline creatinine around 1.5. Holding lipid-lowering agent at this time due to elevated liver enzymes. Echocardiogram was done this admission which revealed EF 30-35% (this has decreased from 45% January 2016), moderate mitral regurgitation, PAP 34 mmHg. SEPTEMBER 12, 2016 UPDATE: Patient was seen and examined on the telemetry unit. Sitting up on side of the bed in no acute distress. Not requiring oxygen. Patient reports that he is doing much better this morning and is extremely anxious for discharge home. At this point, I feel that patient is stable from a cardiac standpoint for discharge home. Patient will need cardiology follow- up in 2 weeks with BMP, magnesium, liver function test and EKG. Lower extremity swelling continues to improve. I have reviewed the awake overnight monitor. It appears that after discontinuation of patient's diltiazem yesterday patient's rate became mildly uncontrolled, ranging from 100-110. At this point, I will reinitiate patient's home dose of diltiazem. Creatinine is stable today at 1.3. INR 1.4. Coumadin was reinitiated yesterday. Patient will have his INR checked with [facility] either or Sunday of this week as patient is being discharged home on antibiotics. Patient's also reports that she will check it at home as she has a machine available. We will continue to hold patient's Crestor as his liver enzymes continue to be elevated. These will be rechecked at Dr. Acosta's office in 2 weeks. Patient may benefit from GI consultation outpatient as his bilirubin is also high. Will defer management of this to attending. ASSESSMENT/PLAN: 1. CONGESTIVE HEART FAILURE, SYSTOLIC, ACUTE ON CHRONIC - LVEF 35% (this is down from 45% January 2016), NYHA Class III. Patient has greatly improved and appears to be compensated at this time. Feel that he is ready for discharge home. Will change Lasix to p.o. dosing and continue Aldactone and beta-ani. Avoiding TAPAN inhibitor and ARB due to fear of worsening renal function. This may be able to be reinitiated on outpatient basis. 2. CORONARY ARTERY DISEASE - Continue ASA, betablocker and, when able, TAPAN. Holding lipid lowering agent due to worsening liver enzymes. Avoiding TAPAN inhibitor at this time due to fear of worsening renal function. May be able to reinitiate this medication on an outpatient basis. 3. CHRONIC ATRIAL FIBRILLATION - Now rate controlled. Continue current plan of care with Cardizem, beta-ani and Coumadin. 4. CHRONIC ANTICOAGULATION - INR 1.4 today. Patient's Coumadin was reinitiated yesterday. Recommend that patient have his INR checked either or Sunday with stay home as he is being discharged home on antibiotics. 5. HISTORY OF SINGLE CHAMBER PACEMAKER - Continue current plan of care. 6. HISTORY OF STROKE - Continue current plan of care with anticoagulation. Daily INR. 7. HYPERTENSION - Adequately controlled. 8. DYSLIPIDEMIA - Holding lipid lowering agent due to recent increase in liver enzymes. 9. CHRONIC KIDNEY DISEASE - Stage II-III. Creatinine 1.3 (improved overnight ). Baseline 1.5. 10. POSSIBLE CAP - Treated appropriately with antibiotics. 11. ELEVATED LIVER ENZYMES - Will continue to monitor. Total and direct bili also elevated. Holding lipid-lowering agent. Consider consulting GI, will defer to attending. 12. SLEEP APNEA - CPAP nightly. Cardiac discharge medication recommendations: Coumadin 2.5 mg Sunday, Sunday, Sunday, and Sunday Coumadin 5 mg Sunday and Sunday Zebeta 10 mg twice daily Diltiazem CD 120 mg p.o. daily Aldactone 6.25 mg p.o. daily Aspirin 81 mg daily Lasix 40 mg p.o. twice daily Patient and his report that stay home home health checks his INR on a regular basis. also reports that she also has a machine at home that she can check his INR. Patient will need his INR checked later this week, either or Sunday as patient is being discharged home on antibiotics. Case management has been consulted in order to set this up prior to discharge. Patient has also been given an appointment with Dr. Acosta in 2 weeks with BMP, magnesium, liver function test and EKG. Exam (Progress Note) - Constitutional Vitals: Period Temp Pulse Resp BP Sys/West Pulse Ox Last 24 Hr 96.6 F-98.6 F 50-109 16-20 90-134/40-69 91-100 Exam: General: Appears well with no apparent distress. Pleasant and cooperative. Appears comfortable. HEENT: PERRL, normocephalic, atraumatic. Mucous membranes moist. No jaundice noted. Conjunctiva moist and clear, sclerae anicteric Neck: No JVD/HJR, no thyromegaly or lymphadenopathy noted. No carotid bruit appreciated Cardiac: Irregularly irregular rhythm. 2/6 systolic murmur Lungs: Clear to auscultation without accessory muscle use to assist the respiratory pattern. Not requiring oxygen. Abdomen: Soft, bowel sounds normoactive. No abdominal bruit or thrill noted. Extremities: No clubbing, cyanosis noted. 2+ bilateral lower extremity edema. Upper extremity pulses 2+. Lower extremity pulses 2+. Skin: No unusual lesions or rashes. No skin breakdown appreciated. Neuro: Awake, alert and oriented 3. Moves all extremities well without hemiparesis or paralysis. Result/EKG - Labs CBC & BMP: 09/12/16 03:26 09/12/16 03:25 Lab Results: I have reviewed the past 24 hour labs Labs: Laboratory Results - last 24 hr 09/12/16 09/12/16 09/12/16 03:25 03:25 03:26 WBC 10.0 RBC 3.88 Hgb 11.0 L Hct 35.4 L MCV 91.2 MCH 28 MCHC 31.1 L RDW 15.1 Plt Count 145 MPV 11.9 Neut % (Auto) 63.2 Lymph % (Auto) 20.9 L Rush % (Auto) 10.3 Eos % (Auto) 5.0 Baso % (Auto) 0.2 Neut # (Auto) 6.3 Lymph # (Auto) 2.1 Rush # (Auto) 1.0 H Eos # (Auto) 0.5 Baso # (Auto) 0.0 Immature Gran % 0.4 Nucleated RBC % 0.0 Immature Gran # 0.04 Nucleated RBCs # 0.00 INR 1.4 PT Patient/Control Mix 15.1 Sodium 139 Potassium 3.7 Chloride 105 Carbon Dioxide 23 Anion Gap 14.7 BUN 38 H Creatinine 1.70 H GFR Calculation 41 BUN/Creatinine Ratio 22.00 H Glucose 106 Calculated Osmolality 285.5 Calcium 9.0 Magnesium 2.3 Quality Measures - Stroke Symptom Onset Unknown: No Specialty Discharge - Follow Up or Referrals Follow up with: md ez [Other] ( will call INR to his office th or sun. see if dr hui wants follow up) Taqueria Acosta MD [Physician] - 09/28/16 9:00 am (Patient will need a follow- up point with Dr. Acosta in 2 weeks with BMP, magnesium, liver function tests and EKG. Come to appointment at 8:20am for labwork.) Mirta Cadena MD [Physician] - (see if dr cadena needs follow up in clinic ) <Antione Lam - Last Filed: 09/12/16 17:18> Exam (Progress Note) - Constitutional Vitals: Period Temp Pulse Resp BP Sys/West Pulse Ox Last 24 Hr 96.6 F-98.6 F 50-109 16-20 90-131/40-67 91-99 Result/EKG - Labs CBC & BMP: 09/12/16 03:26 09/12/16 03:25 Labs: Laboratory Results - last 24 hr 09/12/16 09/12/16 09/12/16 03:25 03:25 03:26 WBC 10.0 RBC 3.88 Hgb 11.0 L Hct 35.4 L MCV 91.2 MCH 28 MCHC 31.1 L RDW 15.1 Plt Count 145 MPV 11.9 Neut % (Auto) 63.2 Lymph % (Auto) 20.9 L Rush % (Auto) 10.3 Eos % (Auto) 5.0 Baso % (Auto) 0.2 Neut # (Auto) 6.3 Lymph # (Auto) 2.1 Rush # (Auto) 1.0 H Eos # (Auto) 0.5 Baso # (Auto) 0.0 Immature Gran % 0.4 Nucleated RBC % 0.0 Immature Gran # 0.04 Nucleated RBCs # 0.00 INR 1.4 PT Patient/Control Mix 15.1 Sodium 139 Potassium 3.7 Chloride 105 Carbon Dioxide 23 Anion Gap 14.7 BUN 38 H Creatinine 1.70 H GFR Calculation 41 BUN/Creatinine Ratio 22.00 H Glucose 106 Calculated Osmolality 285.5 Calcium 9.0 Magnesium 2.3
[2016-09-12] MEDS: VENLAFAXINE 75 MG TABLET PO SCH (09:25)
[2016-09-12] MEDS: SPIRONOLACTONE 25 MG TABLET PO SCH (09:25)
[2016-09-12] MEDS: PANTOPRAZOLE 40 MG TABLET PO SCH (09:25)
[2016-09-12] MEDS: ASPIRIN EC 81 MG TABLET PO SCH (09:25)
[2016-09-12] MEDS: ALLOPURINOL 100 MG TABLET PO SCH (09:25)
[2016-09-12] MEDS: FUROSEMIDE 40 MG/4 ML VIAL IV SCH (09:25)
[2016-09-12] MEDS: BISOPROLOL 5 MG TABLET PO SCH (09:25)
[2016-09-12] MEDS: AZITHROMYCIN 250 MG TABLET PO SCH (09:25)
[2016-09-12] MEDS: CETIRIZINE 10 MG TABLET PO SCH (09:26)
[2016-09-12] MEDS: NYSTATIN CREAM 15 GM TUBE TOP SCH (09:26)
[2016-09-12] MEDS ORDERED: DILTIAZEM CD 120 MG CAPSULE PO SCH (09:30)
--- NOTE | 2016-09-12 10:24 | Discharge Summary ---
Hospital Course - Hospital Course Hospital Course: Hospital Course - Time spent with patient Time with patient DS: Greater than 30 minutes Specialty Discharge - Follow Up or Referrals Follow up with: Taqueria Acosta MD [Physician] - 2 Weeks (Patient will need a follow-up point with Dr. Acosta in 2 weeks with BMP, magnesium, liver function tests and EKG.) Discharge Plan - Discharge Medications No Action Rosuvastatin [Crestor] 5 mg PO DAILY traZODone [Desyrel] 50 mg PO BEDTIME Venlafaxine [Effexor] 75 mg PO BID rOPINIRole [Requip] 1 mg PO BEDTIME Allopurinol 100 mg PO DAILY Nitroglycerin Sl Tab [Nitrostat] 0.4 mg SL Q5M PRN PRN Reason: Chest Pain Omeprazole 20 mg PO BEDTIME Bisoprolol Fumarate 5 mg PO DAILY HYDROcodone/ACETAMIN 10-325 [[place] 10-325] 1 tablet PO BID PRN PRN Reason: lower back pain Diphenoxylate/Atrop 2.5-0.025 [Lomotil Tab] 1 tablet PO QID PRN PRN Reason: Diarrhea Losartan Potassium 12.5 mg PO DAILY Aspirin EC Tab 81 mg PO DAILY Furosemide Tab [Lasix Tab] 60 mg PO DAILY Furosemide Tab [Lasix Tab] 40 mg PO 1200 Warfarin [Coumadin] 2.5 mg PO SUTUWETHSA Cetirizine HCl [Cetirizine Tab] 10 mg PO DAILY dilTIAZem HCl [Diltiazem ER (24 hr)] 120 mg PO DAILY Tiotropium [place] [Spiriva Respimat] 4 gm IH BID Pramoxine HCl [Sarna Sensitive Lotion] 1 applic TOP QID PRN PRN Reason: Itching Warfarin [Coumadin] 5 mg PO MOFR Linagliptin [Tradjenta] 5 mg PO DAILY - Follow Up or Referral Follow Up: Taqueria Acosta MD [Physician] - 2 Weeks (Patient will need a follow-up point with Dr. Acosta in 2 weeks with BMP, magnesium, liver function tests and EKG.) - Forms/Instructions Exam - Constitutional Vitals: Period Temp Pulse Resp BP Sys/West Pulse Ox Last 24 Hr 96.6 F-98.6 F 50-109 16-20 90-134/40-69 91-100 Discharge Results Procedures and tests throughout hospitalization: Pending Orders 09/07/16 21:17 Blood Culture Stat 09/13/16 04:00 BMP w/ Mg [Basic Metabolic Panel w/Mg] IN AM CBC [Comp Blood Count Auto Diff] IN AM Prothrombin Time INR IN AM 09/14/16 04:00 BMP w/ Mg [Basic Metabolic Panel w/Mg] IN AM CBC [Comp Blood Count Auto Diff] IN AM Prothrombin Time INR IN AM 09/15/16 04:00 BMP w/ Mg [Basic Metabolic Panel w/Mg] IN AM CBC [Comp Blood Count Auto Diff] IN AM Prothrombin Time INR IN AM Labs on day of discharge: Labs from last 24 hours 09/12/16 09/12/16 09/12/16 03:26 03:25 03:25 WBC 10.0 RBC 3.88 Hgb 11.0 L Hct 35.4 L MCV 91.2 MCH 28 MCHC 31.1 L RDW 15.1 Plt Count 145 MPV 11.9 Neut % (Auto) 63.2 Lymph % (Auto) 20.9 L [place] % (Auto) 10.3 Eos % (Auto) 5.0 Baso % (Auto) 0.2 Neut # (Auto) 6.3 Lymph # (Auto) 2.1 [place] # (Auto) 1.0 H Eos # (Auto) 0.5 Baso # (Auto) 0.0 Immature Gran % 0.4 Nucleated RBC % 0.0 Immature Gran # 0.04 Nucleated RBCs # 0.00 INR 1.4 PT Patient/Control Mix 15.1 Sodium 139 Potassium 3.7 Chloride 105 Carbon Dioxide 23 Anion Gap 14.7 BUN 38 H Creatinine 1.70 H GFR Calculation 41 BUN/Creatinine Ratio 22.00 H Glucose 106 Calculated Osmolality 285.5 Calcium 9.0 Magnesium 2.3 Preliminary micro results at discharge 09/07/16 21:17 Blood Culture - Preliminary Blood No growth at 3 days 09/07/16 21:17 Blood Culture - Preliminary Blood No growth at 3 days DS: Provider Date of admission: 09/07/16 22:25 Primary care physician: Darling Dwyer MD Attending physician on admission: Dandre Gonzales MD Consults: 09/07/16 22:24 Consult to Physician [CONS] Routine Comment: Consulting Provider: Cardiology - [facility] Person Notified: Jared Date Notified: 09/08/16 Time Notified: 08:20 09/08/16 00:10 Consult to Pastoral Services [CONS] Routine Comment: 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 needs INR checked or sun. Discharging clinician: DOUG Hameed Expected date of discharge: 09/12/16 Mr. Trejo is an 81-year-old male with history of congestive heart failure, coronary artery disease, hypertension, dyslipidemia, PVD, chronic A. fib on Coumadin, CVA, COPD, pacemaker, and chronic kidney disease. He was admitted by the hospitalist service on 09/07/2016 with A. fib with RVR and pneumonia with acute on chronic CHF. Patient also had supratherapeutic INR of 3.2, and elevated liver enzymes. Cardiology was consulted and they have been managing his care. Patient's Coumadin was held until INR was stable and this has since been restarted. Patient's lipid-lowering agent has been held due to elevated liver enzymes. Echo was done this admission which revealed an EF of 30-35% which is decreased from 45% in December. He also has some moderate mitral regurgitation. Patient is feeling much better and his rates are controlled at this time. Patient will have stay home health recheck his INR on or Sunday of this week and it will be faxed to Dr. Hui's office. He will follow-up with Dr. Acosta in 2 weeks with a BMP, mag, LFTs, and an EKG. He may benefit from GI consultation outpatient if his LFTs continue to be elevated. Dr. Cadena from sleep medicine also has seen patient and he has been started on CPAP machine. He is tolerating this well. Upon discharge a machine will be delivered to his home. Will check with Dr. Cadena and see if follow-up is needed in clinic. Patient will be discharged on antibiotics for 7 more days for his pneumonia. Patient also had some issues with urinary retention and Flomax was started and this is since resolved. Discharge instructions were given to the patient and his family member in the room. Patient's case was discussed with Dr. Reynolsd, the hospitalist, patient, family , nursing, and cardiology. Case coordination, chart review, and completed discharge paperwork took approximately 45 minutes. - Time spent with patient Time with patient DS: Greater than 30 minutes Diagnosis - Discharge Diagnosis (1) Hyperlipidemia Status: Chronic (2) Diabetes Status: Chronic (3) PAD (peripheral artery disease) Status: Chronic (4) Pacemaker Status: Chronic (5) COPD (chronic obstructive pulmonary disease) Status: Chronic (6) CHF (congestive heart failure) Status: Chronic (7) Pneumonia Status: Resolved (8) Dyspnea on exertion Status: Chronic (9) Coronary artery disease Status: Chronic (10) Chronic atrial fibrillation Status: Chronic (11) Elevated liver enzymes Status: Acute Specialty Discharge - Follow Up or Referrals Follow up with: Taqueria Acosta MD [Physician] - 2 Weeks (Patient will need a follow-up point with Dr. Acosta in 2 weeks with BMP, magnesium, liver function tests and EKG.) Discharge Plan - Discharge Data Disposition: Home Health Service Condition at Discharge: Stable Discharge Diet: heart healthy Activity: resume usual activities as tolerated Contact your physician if you experience:: fever over 101, Shortness of breath - Discharge Medications New Bisoprolol [Zebeta] 10 mg PO BID #120 tablet Levofloxacin Tab [Levaquin Tab] 500 mg PO DAILY #7 tablet Tamsulosin [Flomax] 0.4 mg PO BEDTIME #30 capsule Continue traZODone [Desyrel] 50 mg PO BEDTIME Venlafaxine [Effexor] 75 mg PO BID rOPINIRole [Requip] 1 mg PO BEDTIME Allopurinol 100 mg PO DAILY Nitroglycerin Sl Tab [Nitrostat] 0.4 mg SL Q5M PRN PRN Reason: Chest Pain Omeprazole 20 mg PO BEDTIME HYDROcodone/ACETAMIN 10-325 [[place] 10-325] 1 tablet PO BID PRN PRN Reason: lower back pain Diphenoxylate/Atrop 2.5-0.025 [Lomotil Tab] 1 tablet PO QID PRN PRN Reason: Diarrhea Losartan Potassium 12.5 mg PO DAILY Aspirin EC Tab 81 mg PO DAILY Furosemide Tab [Lasix Tab] 60 mg PO DAILY Furosemide Tab [Lasix Tab] 40 mg PO 1200 Warfarin [Coumadin] 2.5 mg PO SUTUWETHSA Cetirizine HCl [Cetirizine Tab] 10 mg PO DAILY dilTIAZem HCl [Diltiazem ER (24 hr)] 120 mg PO DAILY Tiotropium [place] [Spiriva Respimat] 4 gm IH BID Pramoxine HCl [Sarna Sensitive Lotion] 1 applic TOP QID PRN PRN Reason: Itching Warfarin [Coumadin] 5 mg PO MOFR Linagliptin [Tradjenta] 5 mg PO DAILY Discontinued Rosuvastatin [Crestor] 5 mg PO DAILY Bisoprolol Fumarate 5 mg PO DAILY - Follow Up or Referral Follow Up: Taqueria Acosta MD [Physician] - 2 Weeks (Patient will need a follow-up point with Dr. Acosta in 2 weeks with BMP, magnesium, liver function tests and EKG.) md ez [Other] (HH will call INR to his office th or sun. see if dr hui wants follow up) Mirta Cadena MD [Physician] - (see if dr cadena needs follow up in clinic ) - Forms/Instructions Exam - Constitutional Vitals: Period Temp Pulse Resp BP Sys/West Pulse Ox Last 24 Hr 96.6 F-98.6 F 50-109 16-20 90-134/40-69 91-100 Exam: 81-year-old white male, no acute distress, alert and oriented Chest clear CV irregularly irregular Abdomen soft and nontender Extremities no edema Discharge Results Procedures and tests throughout hospitalization: Pending Orders 09/07/16 21:17 Blood Culture Stat 09/13/16 04:00 BMP w/ Mg [Basic Metabolic Panel w/Mg] IN AM CBC [Comp Blood Count Auto Diff] IN AM Prothrombin Time INR IN AM 09/14/16 04:00 BMP w/ Mg [Basic Metabolic Panel w/Mg] IN AM CBC [Comp Blood Count Auto Diff] IN AM Prothrombin Time INR IN AM 09/15/16 04:00 BMP w/ Mg [Basic Metabolic Panel w/Mg] IN AM CBC [Comp Blood Count Auto Diff] IN AM Prothrombin Time INR IN AM Labs on day of discharge: Labs from last 24 hours 09/12/16 09/12/16 09/12/16 03:26 03:25 03:25 WBC 10.0 RBC 3.88 Hgb 11.0 L Hct 35.4 L MCV 91.2 MCH 28 MCHC 31.1 L RDW 15.1 Plt Count 145 MPV 11.9 Neut % (Auto) 63.2 Lymph % (Auto) 20.9 L [place] % (Auto) 10.3 Eos % (Auto) 5.0 Baso % (Auto) 0.2 Neut # (Auto) 6.3 Lymph # (Auto) 2.1 [place] # (Auto) 1.0 H Eos # (Auto) 0.5 Baso # (Auto) 0.0 Immature Gran % 0.4 Nucleated RBC % 0.0 Immature Gran # 0.04 Nucleated RBCs # 0.00 INR 1.4 PT Patient/Control Mix 15.1 Sodium 139 Potassium 3.7 Chloride 105 Carbon Dioxide 23 Anion Gap 14.7 BUN 38 H Creatinine 1.70 H GFR Calculation 41 BUN/Creatinine Ratio 22.00 H Glucose 106 Calculated Osmolality 285.5 Calcium 9.0 Magnesium 2.3 Preliminary micro results at discharge 09/07/16 21:17 Blood Culture - Preliminary Blood No growth at 3 days 09/07/16 21:17 Blood Culture - Preliminary Blood No growth at 3 days DS: Provider Date of admission: 09/07/16 22:25 Primary care physician: Darling Dwyer MD Attending physician on admission: Dandre Gonzales MD Consults: 09/07/16 22:24 Consult to Physician [CONS] Routine Comment: Consulting Provider: Cardiology - [facility] Person Notified: Jared Date Notified: 09/08/16 Time Notified: 08:20 09/08/16 00:10 Consult to Pastoral Services [CONS] Routine Comment: 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 needs INR checked thur or fri. Discharging clinician: DOUG aHmeed Expected date of discharge: 09/12/16
[2016-09-12 12:34] VITALS: BP 127/59
[2016-09-12] MEDS ORDERED: FUROSEMIDE 40 MG TABLET PO SCH (16:00)
[2016-09-12] MEDS ORDERED: WARFARIN 2.5 MG TABLET PO SCH (18:00)
== END 2016-09-12 14:00 | disposition home health service (06) | DRG 291 ==
LOC: N.ED 19:42 → SUATTDRO 22:24 → N.EDINP 22:24 → SUATTDRO 22:25 → N.TELEN 23:13
PROVIDERS: ADMIT Internal Medicine; ATTEND Internal Medicine

== ENCOUNTER 2016-11-02 14:47 | Inpatient (IN) ==
--- NOTE | 2016-11-02 15:14 | Emergency Department Note ---
Arrival - Arrival Chief Complaint: Non-Specific Stated Complaint: abnormal lab ED Nursing Triage Note: Pt was seen by Dr Khan this am and had blood drawn. Family states they were told he had abnormal liver tests. Mode of Arrival: Wheelchair Limitations: No Limitations Source: Family Time Seen by Provider: 11/02/16 15:09 - History of Present Illness HPI Narrative: This 81-year-old white male with dementia presents on referral from his doctor' s office for further evaluation of abnormal blood work. The patient has multiple medical problems including chronic congestive heart failure, chronic renal failure, chronic atrial fibrillation, and persistent ascites secondary to passive congestion from congestive failure. Currently the patient is unable to give a cognizant history due to his dementia. The patient's family relate that they had great difficulty controlling his ascites, one day can be significant the other day can be minimal, despite compliance with medication. They do not report any nausea, vomiting, chills, fever, shortness of breath, cough, chest pain, or other symptoms voiced by the patient recently. His major problem is significant anasarca and progressive ascites for the past week. Onset (ago): month(s) (Patient presents with long-standing complaint) Allergies/Adverse Reactions: Allergies Allergy/AdvReac Type Severity Reaction Status Date / Time dexamethasone AdvReac Severe Palpitation Verified 09/07/16 19:57 s Home Medications: Home Medications Medication Instructions Recorded Confirmed Type Allopurinol 100 mg PO DAILY 05/19/15 09/07/16 History HYDROcodone/ACETAMIN 10-325 [[place] 1 tablet PO BID PRN 05/19/15 09/07/16 History 10-325] Nitroglycerin Sl Tab [Nitrostat] 0.4 mg SL Q5M PRN 05/19/15 09/07/16 History Omeprazole 20 mg PO BEDTIME 05/19/15 09/07/16 History Venlafaxine [Effexor] 75 mg PO BID 05/19/15 09/07/16 History rOPINIRole [Requip] 1 mg PO BEDTIME 05/19/15 09/07/16 History traZODone [Desyrel] 50 mg PO BEDTIME 05/19/15 09/07/16 History Aspirin EC Tab 81 mg PO DAILY 09/07/16 09/07/16 History Cetirizine HCl [Cetirizine Tab] 10 mg PO DAILY 09/07/16 09/07/16 History Diphenoxylate/Atrop 2.5-0.025 1 tablet PO QID PRN 09/07/16 09/07/16 History [Lomotil Tab] Furosemide Tab [Lasix Tab] 40 mg PO 1200 09/07/16 09/07/16 History Furosemide Tab [Lasix Tab] 60 mg PO DAILY 09/07/16 09/07/16 History Linagliptin [Tradjenta] 5 mg PO DAILY 09/07/16 09/07/16 History Losartan Potassium 12.5 mg PO DAILY 09/07/16 09/07/16 History Tiotropium [place] [Spiriva 4 gm IH BID 09/07/16 09/07/16 History Respimat] Warfarin [Coumadin] 2.5 mg PO SUTUWETHSA 09/07/16 09/07/16 History Warfarin [Coumadin] 5 mg PO MOFR 09/07/16 09/07/16 History dilTIAZem HCl [Diltiazem ER (24 120 mg PO DAILY 09/07/16 09/07/16 History hr)] Pramoxine HCl [Sarna Sensitive 1 applic TOP QID PRN 09/08/16 09/08/16 History Lotion] Bisoprolol [Zebeta] 10 mg PO BID #120 tablet 09/12/16 Rx Levofloxacin Tab [Levaquin Tab] 500 mg PO DAILY #7 tablet 09/12/16 Rx Tamsulosin [Flomax] 0.4 mg PO BEDTIME #30 capsule 09/12/16 Rx Review of System - Review of System 12 point system: reviewed and no additional remarkable complaints except as stated - Review of System Constitutional: Present: as per HPI Respiratory: Present: as per HPI Cardiovascular: Present: as per HPI Gastrointestinal: Present: as per HPI Neurological: Present: as per HPI Medical,Surgical,& Family Hx - Medical History Cardio: History of: Cardiac Dysrhythmia, CHF, CAD, Hypertension, [place], Pacemaker Psychological: History of: Depression Neurology: History of: Cerebrovascular Accident, Migraine, Vertigo No history of: Seizures HEENT: History of: Eye Problem (CATARACTS), Dental Problems (FULL UPPER AND LOWER DENTURES) Endocrine: History of: Diabetes Mellitus (NIDDM), Dyslipidemia Respiratory: History of: Obstructive Sleep Apnea, Pneumonia, Respiratory Problems (EMPHYSEMA) Renal: History of: Renal Problems (has mild renal insufficiency, stageII) Genitourinary: History of: Bladder Problem, Prostate Problems (PROSTATE CA) Gastrointestinal: History of: GERD, Gastrointestinal Bleed, Hemorrhoids, Polyps Musculoskeletal: History of: Back/Neck Problems, Herniated Disk, Musculoskeletal Problems (OSTEOARTHRITIS) No history of: Amputation Other: History of: Cancer (prostate ca) - Surgical History Cardiac Surgeries: Sugical HX of: Cardiac Catheterization, Cardiac Surgery ( OPEN HEART SURGERY x2 2015 and 1993) Thoracic Surgeries: Patient denies;: Organ Transplant, Lobectomy HEENT Surgeries: Surgical HX of: Eye Surgery (CATARACTS) Patient denies: Tonsilectomy & Adenoidectomy Abdominal Surgeries: Surgical HX of: Abdominal Surgery, Colonoscopy Reproductive Surgeries: Patient denies;: Genitourinary Surgery - Family History Family History: Reports;: Family Cancer, Family Diabetes, Family Heart Disease, Family Hypertension, Family Stroke - Social History Smoking Status: Former smoker Exam Physical Examination: GENERAL: Chronically ill-appearing white male in no acute distress. HEENT: Normocephalic. No trauma. Moist mucous membranes. EOMI. PERRLA. Recent left black eye from fall ENT NML NECK: Supple. No adenopathy. CARDIAC: Regular. No murmurs. Heart rate 115 CHEST: Clear to auscultation. No respiratory distress. O2 sat 93% ABDOMEN: Firm with moderate ascites associated with significant fluid wave and distant bowel sounds. EXTREMITIES: No trauma. Normal ROM. No pedal edema. SKIN: No diaphoresis. No rash. Mild generalized jaundice NEURO: Alert. Oriented to person. Motor, sensory, vibratory intact. No asterixis. No focal deficits. Vital Signs: Vital Signs Temperature 97.2 F L 11/02/16 16:14 Pulse Rate 112 H 11/02/16 16:14 Respiratory Rate 18 11/02/16 16:15 Blood Pressure 85/69 11/02/16 16:14 O2 Sat by Pulse Oximetry 98 11/02/16 16:15 Course - Reevaluation(s) Reevaluation #1: Discussed with patient the need for hospitalization for further diuresis and stabilization of his heart and kidney function. - Consultations Consultation #1: Discussed with hospitalist service who will admit for further evaluation treatment. Results - Labs CBC & BMP: 11/02/16 15:53 11/02/16 15:53 Labs: I have reviewed the laboratory noted low hematocrit, low potassium, renal azotemia, elevated CK, and BMP. - Diagnostic Findings Procedure: Chest x-ray: image reviewed by me, report reviewed by me ( Cardiomegaly with pulmonary disease, consistent with congestive heart failure) Disposition Clinical Impression: Congestive heart failure, Chronic renal failure Case discussed with: patient Disposition: Still a Patient Condition: Guarded Time of Disposition: 17:05
--- NOTE | 2016-11-02 15:27 | XRay Report ---
XR chest 1V portable Indication: Shortness of breath Comparison: Chest x-ray 09/08/2016 Technique: Portable AP chest was performed. Findings: Mild cardiomegaly is demonstrated. PreviousSternotomy is demonstrated. Cardiac pacemaker is stable. The appearance of the lung parenchyma and pulmonary vasculature is most suggestive of a congestive heart failure and pulmonary edema. Impression: 1. Appearance of the chest is most suggestive of congestive heart failure and pulmonary edema. 11/02/2016 3:24 PM PROCEDURE INTERPRETED AT [facility] DEPARTMENT OF RADIOLOGY Final Report Signed by: Dr. Bertram Puente
[2016-11-02 16:12] LABS: Basophils % 0.2 % (0.0-0.8); Eosinophils # 0.2 10*3/uL (0.0-0.87); Eosinophils % 2.2 % (0.00-10.9); Hematocrit 32.5 VOL% (42.0-52.0); Hemoglobin 10.5 GM/DL (14.0-18.0); Immature Granulocytes % 0.5 %; Immature Granulocytes Absolute 0.04 #; Lymphocytes # 1.6 10*3/uL (1.4-4.0); Lymphocytes % 18.6 % (21.2-54.2); Mean Corpuscular HGB Conc 32.3 GM/DL (32-36); Mean Corpuscular Hemoglobin 28 PG (27-34); Mean Platelet Volume 12.3 FL (9.6-12.0); Monocytes # 0.9 10*3/uL (0.11-0.8); Monocytes % 10.2 % (1.7-12.7); NRBC # 0.03 10*3/uL; Neutrophils # 5.7 10*3/uL (1.4-7.4); Neutrophils % 68.3 % (38.7-73.9); Platelet Count 156 T/CUMM (130-400); Red Blood Count 3.78 MC/CUMM (3.8-5.5); Red Cell Distribution Width 17.2 % (9.3-17.3); White Blood Count 8.3 T/CUMM (4-12)
[2016-11-02 16:22] LABS: INR 2.6
[2016-11-02 16:26] LABS: PT Patient Result 29.3 SECS
[2016-11-02 16:36] LABS: Apearance,Urine CLEAR (Clear); Bilirubin,Urine Negative (Negative); Blood, Urine Negative (Negative); Glucose,Urine (UA) Negative (Negative); Hyaline Casts,Urine 1 /LPF (0-3); Ketones,Urine Negative (Negative); Mucus,Urine Occasional /LPF (Occasional); Nitrite,Urine Negative (Negative); Protein,Urine Negative; Urine Color Yellow (Yellow); Urine Specific Gravity 1.008 (1.001-1.035); Urine Urobilinogen < 2.0 EU/DL (0.2-1.0); WBC,Urine <1 /HPF (0-6)
[2016-11-02 16:51] LABS: Albumin 3.2 G/DL (3.4-5.0); Bilirubin,Total 1.3 MG/DL (0.2-1.0); CKMB % 3.3 %; Calcium 9.8 MG/DL (8.5-10.1); Osmolality,Calculated 302.7 MOS/KG (273-304); Potassium 3.1 MMOL/L (3.5-5.1); Total Protein 7.6 G/DL (6.4-8.3); Troponin I Only 0.038 NG/ML (0.00-0.045)
--- NOTE | 2016-11-02 18:12 | Hospitalist History & Physical ---
Assessment and Plan - Time spent with patient Time spent with patient: (Abnormal leg) (1) Hypotension Status: Acute Assessment and plan: Hold bp meds. Routine vitals. Current Visit: Yes (2) [id number] renal failure Status: Acute Assessment and plan: Bun/creatinine 124/3. Consult nephrology. Daily bmps. Gentle hydration. Avoid nephrotoxic agents. Current Visit: Yes (3) Congestive heart failure (CHF) Status: Acute Assessment and plan: BNP 813. CXR showed CHF and mild cardiomegaly.Consult cardiology to assist. Pt has extensive cardiac history. Current Visit: No Qualifiers: Congestive heart failure type: systolic Congestive heart failure chronicity : acute on chronic Qualified Code(s): I50.23 - Acute on chronic systolic ( congestive) heart failure (4) Elevated liver enzymes Status: Acute Assessment and plan: Repeat liver function tests in the am. Current Visit: No (5) Hyperlipidemia Status: Chronic Assessment and plan: Lipid panel in am. Current Visit: No (6) Hypoalbuminemia Status: Acute Current Visit: No (7) Chronic anticoagulation Status: Chronic Assessment and plan: Patient on Coumadin. Check PT/INR in the a.m. Current Visit: No (8) Diabetes Status: Chronic Assessment and plan: Initiate Accu-Cheks. Start sliding scale. Diabetic diet. Hgb in am Current Visit: No (9) History of pacemaker Status: Chronic Current Visit: No (10) History of stroke Status: Chronic Current Visit: No (11) Decreased hearing Status: Chronic Current Visit: No History of Present Illness Chief complaint: abnormal labs History of present illness: Mr. Trejo is a 81 year old white male with a history of dementia, GERD, hypertension, A. fib, VT, CAD, CHF, CABG, pacemaker, depression, CVA, diabetes, dyslipidemia, DOMINGO, prostate cancer, osteoarthritis presented to the ED on referral from his primary care provider's office for further evaluation of abnormal blood work. Pt. is seen by Dr. Khan and had lab work performed on yesterday. They were called back to the office today for a repeat of the labs. Once there, pt was noted to have elevated liver enzymes, and acute on chronic renal failure. Pt. was sent here further evaluation. Pt is accompanied by his who states patient has seen a steady decline in his condition since about 6 months ago. Pt is oriented to self but not time. He states he is not short of breath but facial expressions do exhibit pain and discomfort. also reports very swollen scrotum. Pt. is noted to have distended abdomen. Labs in the ED reveal h&h 10.5/32.5, sodium 131, K 3.1, Bun 124, creatinine 3.1, total bilirubin 1.3, AST 111, ALT 139, ammonia 54, total creatinine kinase 632, ck-mb 20.9, AST 111, ALT of 139. Pt's case has been discussed with Dr. Gonzales and patient will be admitted for a workup. Home Medications Medication Instructions Recorded Confirmed Type Allopurinol 100 mg PO QAM 05/19/15 11/02/16 History HYDROcodone/ACETAMIN 10-325 [[place] 1 tablet PO TID 05/19/15 11/02/16 History 10-325] Nitroglycerin Sl Tab [Nitrostat] 0.4 mg SL Q5M PRN 05/19/15 11/02/16 History Omeprazole 20 mg PO BEDTIME 05/19/15 11/02/16 History Venlafaxine [Effexor] 75 mg PO BID 05/19/15 11/02/16 History rOPINIRole [Requip] 1 mg PO Q3D 05/19/15 11/02/16 History traZODone [Desyrel] 50 - 100 mg PO BEDTIME 05/19/15 11/02/16 History Aspirin EC Tab 81 mg PO QAM 09/07/16 11/02/16 History Cetirizine HCl [Cetirizine Tab] 10 mg PO QAM 09/07/16 11/02/16 History Furosemide Tab [Lasix Tab] 40 mg PO QAM 09/07/16 11/02/16 History Linagliptin [Tradjenta] 5 mg PO QAM 09/07/16 11/02/16 History Tiotropium [place] [Spiriva 4 gm IH BID 09/07/16 11/02/16 History Respimat] Warfarin [Coumadin] 2.5 mg PO QPM 09/07/16 11/02/16 History dilTIAZem HCl [Diltiazem ER (24 120 mg PO QAM 09/07/16 11/02/16 History hr)] Bisoprolol [Zebeta] 10 mg PO BID #120 tablet 09/12/16 11/02/16 Rx Tamsulosin [Flomax] 0.4 mg PO BEDTIME #30 capsule 09/12/16 11/02/16 Rx Potassium Chloride 20 meq PO 0800,1200 11/02/16 11/02/16 History Spironolactone 6.25 mg PO QAM 11/02/16 11/02/16 History Allergies Allergy/AdvReac Type Severity Reaction Status Date / Time dexamethasone AdvReac Severe Palpitation Verified 09/07/16 19:57 s Medical,Surgical,& Family Hx - Medical History Cardio: History of: Cardiac Dysrhythmia, CHF, CAD, Hypertension, VT, Pacemaker Psychological: History of: Depression Neurology: History of: Cerebrovascular Accident, Migraine, Vertigo No history of: Seizures HEENT: History of: Eye Problem (CATARACTS), Dental Problems (FULL UPPER AND LOWER DENTURES) Endocrine: History of: Diabetes Mellitus (NIDDM), Dyslipidemia Respiratory: History of: Obstructive Sleep Apnea, Pneumonia, Respiratory Problems (EMPHYSEMA) Renal: History of: Renal Problems (has mild renal insufficiency, stageII) Genitourinary: History of: Bladder Problem, Prostate Problems (PROSTATE CA) Gastrointestinal: History of: GERD, Gastrointestinal Bleed, Hemorrhoids, Polyps Musculoskeletal: History of: Back/Neck Problems, Herniated Disk, Musculoskeletal Problems (OSTEOARTHRITIS) No history of: Amputation Other: History of: Cancer (prostate ca) - Surgical History Cardiac Surgeries: Sugical HX of: Cardiac Catheterization, Cardiac Surgery ( OPEN HEART SURGERY x2 2016 and 1993) Thoracic Surgeries: Patient denies;: Organ Transplant, Lobectomy HEENT Surgeries: Surgical HX of: Eye Surgery (CATARACTS) Patient denies: Tonsilectomy & Adenoidectomy Abdominal Surgeries: Surgical HX of: Abdominal Surgery, Colonoscopy Reproductive Surgeries: Patient denies;: Genitourinary Surgery - Family History Family History: Reports;: Family Cancer, Family Diabetes, Family Heart Disease, Family Hypertension, Family Stroke - Social History Smoking Status: Former smoker Marital Status: Lives With:: Spouse Functional capacity: uses cane/walker - Constitutional Constitutional: Present: weakness. Absent: chills, fever(s) - EENT Eyes: Present: loss of vision, requires corrective lense Ears: Present: decreased hearing Nose, mouth and throat: Absent: headache(s) - Cardiovascular Cardiovascular: Present: dyspnea on exertion. Absent: chest pain at rest, edema - Respiratory Respiratory: Present: dyspnea on exertion. Absent: cough - Gastrointestinal Gastrointestinal: Absent: abdominal pain, nausea, vomiting - Genitourinary Genitourinary: Present: scrotal swelling. Absent: difficulty urinating - Neurological Neurological: Present: confusion - Psychiatric Psychiatric: Present: confusion - Hematologic/Lymphatic Hematologic/Lymphatic: Present: easy bruising Exam - Constitutional Vitals: Period Temp Pulse Resp BP Sys/West Pulse Ox Last 24 Hr 97.2 F-97.2 F 112-112 18-20 85-85/69-69 93-98 General appearance: normal weight, mild distress - Head Head exam: Present: normal inspection, normocephalic - Eye Eye exam: Present: EOMI. Absent: scleral icterus Pupils: Present: JADON - Respiratory Respiratory exam: Present: clear to auscultation bilaterally. Absent: wheezes - Cardiovascular Cardiovascular exam: Present: tachycardia - GI/Abdominal GI/Abdominal exam: Present: normal bowel sounds, distended, soft. Absent: tenderness - Extremities Exam Extremities exam: Present: normal capillary refill, full ROM - Neurological Exam Neurological exam: Present: alert, oriented X3 - Psychiatric Psychiatric exam: Present: normal affect, normal mood - Skin Skin exam: Present: normal color, warm Results - Labs CBC & BMP: 11/02/16 15:53 11/02/16 15:53 Lab Results: I have reviewed the past 24 hour labs
[2016-11-02] MEDS ORDERED: ONDANSETRON 4 MG/2 ML VIAL IV PRN (18:16)
[2016-11-02] MEDS ORDERED: POTASSIUM CHLORIDE 20 MEQ TABLET PO PRN (18:16)
[2016-11-02] MEDS ORDERED: SODIUM CHLORIDE 0.9% 1,000 ML IV SCH (18:16)
[2016-11-02] MEDS ORDERED: ACETAMINOPHEN 325 MG TABLET PO PRN (18:16)
[2016-11-02] MEDS ORDERED: DEXTROSE 50% 25 GM/50 ML VIAL IV PRN (18:42)
[2016-11-02] MEDS ORDERED: GLUCAGON 1 MG VIAL IM PRN (18:42)
[2016-11-02 20:06] LABS: Hepatitis A Ab IgM Quant 0.16 Index; Hepatitis A Ab IgM Result Negative (Negative); Hepatitis B Core IgM Quant 0.06 Index; Hepatitis B Core IgM Result Negative (Negative); Hepatitis B Surface Ag Quant < 0.10 Index; Hepatitis B Surface Ag Result Negative (Negative); Hepatitis C Virus Ab Quant 0.12 Index; Hepatitis C Virus Ab Result Negative (Negative)
--- NOTE | 2016-11-02 20:51 | Ultrasound Report ---
US renal Bilateral Indication: Abnormal labs. Comparison: None. Technique: Using a transcutaneous probe, multiple grayscale and color Doppler images of the right and left kidney were captured and stored. Findings: The right kidney measures 9.9 cm in length. The left kidney measures 10 cm in length. No hydronephrosis, perinephric fluid collection, or nephrolithiasis of either kidney is demonstrated. Round oval anechoic structure with through transmission compatible with cyst is present within the lower pole right kidney. This measures 1.8 x 1.6 x 1.4 cm. A similar focus less than a centimeter in size to slightly larger than a centimeter in size is present within the lower pole cortex of the left kidney. Small amount of ascites is present. Impression: 1. Bilateral renal cysts as detailed. 2. Minimal intra-abdominal ascites is present. 11/02/2016 8:47 PM PROCEDURE INTERPRETED AT [facility] DEPARTMENT OF RADIOLOGY Final Report Signed by: Dr. Bertram Puente
[2016-11-02] MEDS: WARFARIN 2.5 MG TABLET PO SCH (22:07)
[2016-11-02] MEDS: TAMSULOSIN 0.4 MG CAPSULE PO SCH (22:07)
[2016-11-02] MEDS: VENLAFAXINE 75 MG TABLET PO SCH (22:07)
[2016-11-02] MEDS: INSULIN LISPRO 100 UNIT/ML SUBCUT SCH (22:17)
[2016-11-02] MEDS: IPRATROPIUM 500 MCG/2.5 ML NEB RESP TX SCH (22:45)
[2016-11-02 22:59] LABS: Hematocrit 29.9 VOL% (42.0-52.0); Hemoglobin 9.7 GM/DL (14.0-18.0)
[2016-11-03 05:54] LABS: Basophils % 0.3 % (0.0-0.8); Eosinophils # 0.1 10*3/uL (0.0-0.87); Eosinophils % 1.4 % (0.00-10.9); Hematocrit 32.2 VOL% (42.0-52.0); Hemoglobin 10.2 GM/DL (14.0-18.0); Immature Granulocytes % 0.6 %; Immature Granulocytes Absolute 0.05 #; Lymphocytes # 1.7 10*3/uL (1.4-4.0); Lymphocytes % 18.9 % (21.2-54.2); Mean Corpuscular HGB Conc 31.7 GM/DL (32-36); Mean Corpuscular Hemoglobin 27 PG (27-34); Mean Corpuscular Volume 86.3 FL (87-102); Mean Platelet Volume 12.5 FL (9.6-12.0); Monocytes # 0.8 10*3/uL (0.11-0.8); Monocytes % 8.4 % (1.7-12.7); Neutrophils # 6.4 10*3/uL (1.4-7.4); Neutrophils % 70.4 % (38.7-73.9); Platelet Count 164 T/CUMM (130-400); Red Blood Count 3.73 MC/CUMM (3.8-5.5); Red Cell Distribution Width 17.1 % (9.3-17.3); White Blood Count 9.1 T/CUMM (4-12)
[2016-11-03 06:06] LABS: INR 2.5
[2016-11-03 06:13] LABS: PT Patient Result 28.6 SECS
[2016-11-03 06:16] LABS: Albumin 2.9 G/DL (3.4-5.0); Bilirubin,Direct 0.7 MG/DL (0.0-0.20); Bilirubin,Indirect 0.6 MG/DL (0.0-1.0); Bilirubin,Total 1.3 MG/DL (0.2-1.0); Total Protein 6.7 G/DL (6.4-8.3)
[2016-11-03 06:18] LABS: Free T4 (Free Thyroxine) 1.09 NG/DL (0.76-1.46)
[2016-11-03 06:23] LABS: Calcium 9.1 MG/DL (8.5-10.1); Magnesium 2.8 MG/DL (1.8-2.4); Osmolality,Calculated 304.2 MOS/KG (273-304); Risk Ratio 7.11; Thyroid Stimulating Hormone 8.23 uIU/ml (0.358-3.74); VLDL CHOLESTEROL 21.6 MG/DL
--- NOTE | 2016-11-03 07:40 | Ultrasound Report ---
Exam: US liver Date:11/03/2016 4:00 AM Comparison: 11/02/2016 kidneys Indication: Elevated transaminases IMPORTANT MEASUREMENTS Findings: Liver Length: The hepatic and portal veins are patent. The liver has somewhat of a slightly nodular component. 12.2 cm Gallbladder Wall Thickness: 4.1 mm . The gallbladder reveals sludge and debris present. CBD: No intrahepatic ductal dilatation. 5 mm Pancreas: Poorly visualized on today's exam. Right kidney: No hydronephrosis perinephric fluid collection length: 9.7 cm Width: 4.1 cm AP: 3.9 cm. There is a cyst measuring 1.7 x 1.3 x 1.5 cm in the right kidney Ascites present. Impression: 1. Sludge and debris within the gallbladder 2. Slight nodular appearance of the liver with component of ascites. A component of cirrhosis is questioned The Ultrasound images were captured and stored. PROCEDURE INTERPRETED AT [facility] DEPARTMENT OF RADIOLOGY Final Report Signed by: Dr. Casey Lucia
[2016-11-03] MEDS: IPRATROPIUM 500 MCG/2.5 ML NEB RESP TX SCH ×4 (08:19→19:51)
[2016-11-03] MEDS: INSULIN LISPRO 100 UNIT/ML SUBCUT SCH ×4 (08:45→21:00)
[2016-11-03] MEDS: ASPIRIN EC 81 MG TABLET PO SCH (08:46)
[2016-11-03] MEDS: PANTOPRAZOLE 40 MG TABLET PO SCH (08:46)
[2016-11-03] MEDS: DILTIAZEM CD 120 MG CAPSULE PO SCH (08:46)
[2016-11-03] MEDS: VENLAFAXINE 75 MG TABLET PO SCH ×2 (08:46→20:08)
[2016-11-03] MEDS: CETIRIZINE 10 MG TABLET PO SCH (08:51)
--- NOTE | 2016-11-03 12:29 | Hospitalist Progress Note ---
Assessment and Plan (1) Hypotension Status: Acute Assessment and plan: Improved with IVF Plan DC IVF Current Visit: Yes (2) Paroxysmal atrial fibrillation Status: Chronic Assessment and plan: Cardiology is following. patient is on anticoagulation Current Visit: Yes (3) [id number]-royyweu renal failure Status: Acute Assessment and plan: Nephrology has been consulted Current Visit: Yes (4) Diabetes Status: Chronic Assessment and plan: stable on current regime Current Visit: Yes (5) Elevated liver enzymes Status: Acute Assessment and plan: Hepatitis panel is negative. Liver USS showed Sludge and debris within the gallbladder. Slight nodular appearance of the liver with component of ascites. A component of cirrhosis is questioned Plan GI consult Current Visit: No (6) Hyperlipidemia Status: Chronic Assessment and plan: Lipid profile noted. Current Visit: No (7) CHF (congestive heart failure) Status: Chronic Assessment and plan: BNP 813. CXR showed CHF and mild cardiomegaly. Cardiology is following.Resume Lasix Current Visit: No (8) Hypokalemia Status: Acute Assessment and plan: will replete, get mg level Current Visit: Yes Hospitalist: Subjective Interval history: Patient seen.His LE extremeties are swollen. Exam - Constitutional Vitals: Period Temp Pulse Resp BP Sys/West Pulse Ox Last 24 Hr 96.3 F-98.1 F 53-118 14-22 83-111/45-87 89-100 General appearance: no acute distress - Head Head exam: Present: normal inspection - Respiratory Respiratory exam: Present: clear to auscultation bilaterally - Cardiovascular Cardiovascular exam: Present: regular rate and rhythm - GI/Abdominal GI/Abdominal exam: Present: normal bowel sounds - Extremities Exam Extremities exam: Present: edema Results - Labs CBC & BMP: 11/03/16 05:24 11/03/16 05:24 Lab Results: I have reviewed the past 24 hour labs
--- NOTE | 2016-11-03 13:41 | Ultrasound Report ---
History: Lower extremity swelling Date: 11/03/2016 Study: Bilateral lower extremity color-flow venous Doppler study Comparison exam: May 14, 2009 Color Doppler, wave form analysis, and compression analysis of the deep veins of both lower extremities from the common femoral vein level through the popliteal vein level shows that the veins are readily compressible. There is no abnormal intraluminal material to suggest thrombus. Waveform analysis is unremarkable. Ultrasound images were captured and archived Impression: Normal bilateral lower extremity color flow venous Doppler study. No evidence of acute DVT PROCEDURE INTERPRETED AT [facility] DEPARTMENT OF RADIOLOGY Final Report Signed by: Dr. Alina Rasmussen
--- NOTE | 2016-11-03 14:03 | EKG Report ---
Please refer to the EKG image. Final interpretation is pending.
[2016-11-03] MEDS: FUROSEMIDE 20 MG/2 ML VIAL IV SCH (15:35)
--- NOTE | 2016-11-03 17:09 | Cardiology Consult Note ---
Nadine Whaley April, RN, am scribing for, and in the presence of, Corona Balderrama MD 17:09. Assessment and Plan - Time spent with patient Time spent with patient: Greater than 30 minutes (Due to assessment, planning, documentation, medication review) (1) Coronary artery disease Status: Chronic Assessment and plan: He had CABG in 2015 as well as 1994. Current Visit: Yes (2) Paroxysmal atrial fibrillation Status: Chronic Current Visit: Yes (3) Rehwt-ry-[id number] renal failure Status: Acute Assessment and plan: Nephrology has been consulted to follow this. Current Visit: Yes (4) Hypotension Status: Acute Assessment and plan: He had some low blood pressures during the night, this morning they have improved. Current Visit: Yes (5) Chronic anticoagulation Status: Chronic Assessment and plan: He is chronically anticoagulated on warfarin. INR today is 2.5, we will continue to monitor. Current Visit: Yes (6) Diabetes Status: Chronic Current Visit: Yes (7) History of pacemaker Status: Chronic Assessment and plan: He had single chamber pacemaker placed in 2012. 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 Acosta PCP: Dr. Rodriguez she had Mr. Trejo is a 81 year old male who is routinely followed by Dr. Acosta. He is demented and is unable to give me a history so the history is obtained from his . He has a history CAD, NIDDM, dyslipidemia, paroxysmal atrial fibrillation, dementia, and abdominal aortic aneurysm (followed by Dr. King). He had CABG with Dr. Brewster in July 1994. July 02, 2015 he had CABG with Dr. Weston where he received left internal mammary graft to the circumflex marginal coronary artery and a right internal mammary graft to the anterior descending coronary artery. He had single lead pacemaker placed by Dr. 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 Other surgeries include bilateral cataract surgery and bilateral carotid endarterectomy. Family history is positive for parents and son with heart disease, father with diabetes and cancer, siblings with cancer and heart disease. He does not currently smoke, reports he quit in 1988. He was sent to the emergency department yesterday by Dr. Khan after having abnormal lab work drawn that showed elevated liver enzymes and kidney function. His says he has increasingly short of breath for the last several days and has noticed more ascites. She says he has not complained of any chest pain or palpitations. Chest x-ray indicated congestive heart failure and pulmonary edema. Renal ultrasound indicated bilateral renal cyst and minimal intra- abdominal ascites. Liver ultrasound indicated sludge and debris within the gallbladder and slight nodular appearance of the liver with component of ascites. There was a component of cirrhosis questioned. Been started on Lasix 20 IV twice daily. Potassium this morning was 3.0, it has been replaced per potassium protocol. He takes warfarin at home for his atrial fibrillation, INR this morning is 2.5. Troponin has been negative. BNP was 813 on admission, this morning it was 1233. He is seen today sitting up on the side of the bed with multiple family members at bedside. He denies any pain or discomfort at this time. His says he seems less short of breath than before. He has a bruise to his left eye where he rolled out of the bed several days ago. She says she taken to see a physician and he was checked out regarding that. His heart rates have ranged from the 50s to the 110s throughout this admission. His blood pressures are stable. We will get an EKG as well as an echocardiogram to assess this further. Patient is having a GI evaluation currently. Has a history of what is described as paroxysmal atrial fibrillation and has been noted to have ascites and worsening liver function. His INR today is 2.5 and we are continuing to follow I have discussed in detail the particulars of this case and I have examined the patient and reviewed the patient's chart both current and old. I was directly involved in the patient's evaluation and management and I completely agree with Jade Mccoy RN regarding this patient's evaluation and treatment plan. CC: Holli Villa MD - Home Medications and Allergies Home Medications: Home Medications Medication Instructions Recorded Confirmed Type Allopurinol 100 mg PO QAM 05/19/15 11/02/16 History HYDROcodone/ACETAMIN 10-325 [Alexander 1 tablet PO TID 05/19/15 11/02/16 History 10-325] Nitroglycerin Sl Tab [Nitrostat] 0.4 mg SL Q5M PRN 05/19/15 11/02/16 History Omeprazole 20 mg PO BEDTIME 05/19/15 11/02/16 History rOPINIRole [Requip] 1 mg PO Q3D 05/19/15 11/02/16 History traZODone [Desyrel] 50 - 100 mg PO BEDTIME 05/19/15 11/02/16 History Aspirin EC Tab 81 mg PO QAM 09/07/16 11/02/16 History Cetirizine HCl [Cetirizine Tab] 10 mg PO QAM 09/07/16 11/02/16 History Furosemide Tab [Lasix Tab] 40 mg PO QAM 09/07/16 11/02/16 History Linagliptin [Tradjenta] 5 mg PO QAM 09/07/16 11/02/16 History Tiotropium Venetie [Spiriva 4 gm IH BID 09/07/16 11/02/16 History Respimat] Warfarin [Coumadin] 2.5 mg PO QPM 09/07/16 11/02/16 History dilTIAZem HCl [Diltiazem ER (24 120 mg PO QAM 09/07/16 11/02/16 History hr)] Bisoprolol [Zebeta] 10 mg PO BID #120 tablet 09/12/16 11/02/16 Rx Tamsulosin [Flomax] 0.4 mg PO BEDTIME #30 capsule 09/12/16 11/02/16 Rx Potassium Chloride 20 meq PO 0800,1200 11/02/16 11/02/16 History Spironolactone 6.25 mg PO QAM 11/02/16 11/02/16 History Venlafaxine [Effexor] 75 mg PO BID 11/02/16 11/02/16 History metOLazone [Metolazone] 2.5 mg PO QOTHER DAY 11/02/16 11/02/16 History Allergies/Adverse Reactions: Allergies Allergy/AdvReac Type Severity Reaction Status Date / Time dexamethasone AdvReac Severe Palpitation Verified 09/07/16 19:57 s - Constitutional Constitutional: Present: as per HPI - EENT Eyes: Present: loss of vision, requires corrective lense Ears: Present: decreased hearing. Absent: ear pain, tinnitus Nose, mouth and throat: Present: other (Dry mouth). Absent: dysphagia, epistaxis, headache(s), neck pain - Cardiovascular Cardiovascular: Present: dyspnea, dyspnea on exertion, edema. Absent: chest pain at rest, chest pain with activity, diaphoresis, radiating jaw, neck or arm pain, lightheadedness, orthopnea, palpitations - Respiratory Respiratory: Present: cough, dyspnea, dyspnea on exertion. Absent: hemoptysis, wheezing - Gastrointestinal Gastrointestinal: Present: constipation, nausea. Absent: abdominal pain, diarrhea, hematemesis, hematochezia, melena, vomiting - Genitourinary Genitourinary: Present: difficulty urinating. Absent: dysuria, hematuria - Musculoskeletal Musculoskeletal: Present: limited range of motion, muscle weakness - Neurological Neurological: Present: abnormal gait, abnormal speech, confusion. Absent: frequent falls, headache(s), syncope - Psychiatric Psychiatric: Absent: anxiety, depression - Endocrine Endocrine: Present: fatigue - Hematologic/Lymphatic Hematologic/Lymphatic: Present: easy bruising. Absent: easy bleeding Medical,Surgical,& Family Hx - Medical History Cardio: History of: Cardiac Dysrhythmia, CHF, CAD, Hypertension, [place], Pacemaker, Cardiovascular Problems (aortic anyresum -- sees Dr. King) Psychological: History of: Depression Neurology: History of: Cerebrovascular Accident, Migraine, Vertigo HEENT: History of: Eye Problem (CATARACTS), Dental Problems (FULL UPPER AND LOWER DENTURES) Endocrine: History of: Diabetes Mellitus (NIDDM), Dyslipidemia Respiratory: History of: COPD, Obstructive Sleep Apnea, Pneumonia, Respiratory Problems (EMPHYSEMA) Renal: History of: Renal Problems (has mild renal insufficiency, stageII) Genitourinary: History of: Bladder Problem, Prostate Problems (PROSTATE CA) Gastrointestinal: History of: GERD, Gastrointestinal Bleed, Hemorrhoids, Polyps Musculoskeletal: History of: Back/Neck Problems, Herniated Disk, Musculoskeletal Problems (OSTEOARTHRITIS) Other: History of: Cancer (prostate ca) - Surgical History Cardiac Surgeries: Sugical HX of: Cardiac Catheterization, Cardiac Surgery ( OPEN HEART SURGERY x2 2016 and 1994) HEENT Surgeries: Surgical HX of: Eye Surgery (CATARACTS) Abdominal Surgeries: Surgical HX of: Abdominal Surgery, Colonoscopy - Family History Family History: Reports;: Family Cancer, Family Diabetes, Family Heart Disease, Family Hypertension, Family Stroke - Social History Smoking Status: Former smoker (Quit in 1988) Have you smoked in the last 12 months: No Frequency of Alcohol Use: None Type of Drug Use: None Marital Status: Lives With:: Spouse Functional capacity: uses cane/walker Physical Examination Vital Signs Temp Pulse Resp BP Pulse Ox 97.2 F L 112 H 20 85/69 93 L 11/02/16 14:48 11/02/16 14:48 11/02/16 14:48 11/02/16 14:48 11/02/16 14:48 General: Present: Other (Elderly, ill-appearing) HEENT: Present: PERRL, Other (Bruising noted to left eye area) Neck: Present: Supple Neck, Midline Trachea Cardiac: Present: Irregularly Regular, Systolic Murmur, Tachycardia, Bradycardia Lungs: Present: Normal Breath Sounds, No Wheeze, Rales, Rhonchi. Absent: Oxygen Neuro: Absent: Resting Tremor, Essential Tremor Abdomen: Present: Soft, Active Bowel Sounds, Distended, Non-Tender Skin: Present: Bruising. Absent: Rash, Suspicious Lesions Musculoskeletal: Present: Decreased Range of Motion, Pain in Joint Gait: Present: Poor Gait Extremities: Present: Normal Upper Extr. Pulses, Normal Lower Extr. Pulses, Edema Result/EKG - Labs CBC & BMP: 11/03/16 05:24 11/03/16 05:24 Lab Results: I have reviewed the past 24 hour labs Labs: Laboratory Results - last 24 hr 11/02/16 11/02/16 11/02/16 15:53 15:53 15:53 WBC 8.3 RBC 3.78 L Hgb 10.5 L Hct 32.5 L MCV 86.0 L MCH 28 MCHC 32.3 RDW 17.2 Plt Count 156 MPV 12.3 H Neut % (Auto) 68.3 Lymph % (Auto) 18.6 L [place] % (Auto) 10.2 Eos % (Auto) 2.2 Baso % (Auto) 0.2 Neut # (Auto) 5.7 Lymph # (Auto) 1.6 [place] # (Auto) 0.9 H Eos # (Auto) 0.2 Baso # (Auto) 0.0 Immature Gran % 0.5 Nucleated RBC % 0.4 Immature Gran # 0.04 Nucleated RBCs # 0.03 Immature Plt Fraction 0.0 INR 2.6 PT Patient/Control Mix 29.3 D Circ Anticoag PTT 40.0 Sodium Potassium Chloride Carbon Dioxide Anion Gap BUN Creatinine GFR Calculation BUN/Creatinine Ratio Glucose POC Glucose Hemoglobin A1c Calculated Osmolality Calcium Magnesium Total Bilirubin Direct Bilirubin Indirect Bilirubin AST ALT Alkaline Phosphatase Ammonia Total Creatine Kinase CK-MB (CK-2) CK and CKMB Interp Troponin I B-Natriuretic Peptide Total Protein Albumin Globulin Albumin/Globulin Ratio Triglycerides Cholesterol LDL Cholesterol VLDL Cholesterol HDL Cholesterol Heart Disease Risk Ratio Free T4 TSH 3rd Generation Urine Color Yellow Urine Appearance Clear Urine pH 6.0 Ur Specific [place] 1.008 Urine Protein Negative Urine Glucose (UA) Negative Urine Ketones Negative Urine Blood Negative Urine Nitrate Negative Urine Bilirubin Negative Urine Urobilinogen < 2.0 H Urine Leukocytes Negative Urine WBC <1 Hyaline Casts 1 Urine Mucus Occasional Ur Culture Indicated? Not indicated Hepatitis A IgM Ab Hep Bs Antigen Hep B Core IgM Ab Hepatitis C Antibody 11/02/16 11/02/16 11/02/16 15:53 15:53 15:53 WBC RBC Hgb Hct MCV MCH MCHC RDW Plt Count MPV Neut % (Auto) Lymph % (Auto) [place] % (Auto) Eos % (Auto) Baso % (Auto) Neut # (Auto) Lymph # (Auto) [place] # (Auto) Eos # (Auto) Baso # (Auto) Immature Gran % Nucleated RBC % Immature Gran # Nucleated RBCs # Immature Plt Fraction INR PT Patient/Control Mix Circ Anticoag PTT Sodium 131 L Potassium 3.1 L Chloride 94 L Carbon Dioxide 25 Anion Gap 15.1 H BUN 124 H Creatinine 3.10 H GFR Calculation 19 BUN/Creatinine Ratio 40.00 H Glucose 108 H POC Glucose Hemoglobin A1c Calculated Osmolality 302.7 Calcium 9.8 Magnesium Total Bilirubin 1.30 H Direct Bilirubin Indirect Bilirubin AST 111 H ALT 139 H Alkaline Phosphatase 106 Ammonia 54 H Total Creatine Kinase 632 H CK-MB (CK-2) 20.9 H CK and CKMB Interp 3.3 Troponin I 0.038 B-Natriuretic Peptide 813 H Total Protein 7.6 Albumin 3.2 L Globulin 4.4 H Albumin/Globulin Ratio 0.7 L Triglycerides Cholesterol LDL Cholesterol VLDL Cholesterol HDL Cholesterol Heart Disease Risk Ratio Free T4 TSH 3rd Generation Urine Color Urine Appearance Urine pH Ur Specific [place] Urine Protein Urine Glucose (UA) Urine Ketones Urine Blood Urine Nitrate Urine Bilirubin Urine Urobilinogen Urine Leukocytes Urine WBC Hyaline Casts Urine Mucus Ur Culture Indicated? Hepatitis A IgM Ab Negative Hep Bs Antigen Negative Hep B Core IgM Ab Negative Hepatitis C Antibody Negative 11/02/16 11/02/16 11/02/16 15:53 18:40 21:54 WBC RBC Hgb Hct MCV MCH MCHC RDW Plt Count MPV Neut % (Auto) Lymph % (Auto) [place] % (Auto) Eos % (Auto) Baso % (Auto) Neut # (Auto) Lymph # (Auto) [place] # (Auto) Eos # (Auto) Baso # (Auto) Immature Gran % Nucleated RBC % Immature Gran # Nucleated RBCs # Immature Plt Fraction INR PT Patient/Control Mix Circ Anticoag PTT Sodium Potassium Chloride Carbon Dioxide Anion Gap BUN Creatinine GFR Calculation BUN/Creatinine Ratio Glucose POC Glucose 160 H 158 H Hemoglobin A1c Calculated Osmolality Calcium Magnesium Total Bilirubin Direct Bilirubin 0.50 H Indirect Bilirubin AST ALT Alkaline Phosphatase Ammonia Total Creatine Kinase CK-MB (CK-2) CK and CKMB Interp Troponin I B-Natriuretic Peptide Total Protein Albumin Globulin Albumin/Globulin Ratio Triglycerides Cholesterol LDL Cholesterol VLDL Cholesterol HDL Cholesterol Heart Disease Risk Ratio Free T4 TSH 3rd Generation Urine Color Urine Appearance Urine pH Ur Specific [place] Urine Protein Urine Glucose (UA) Urine Ketones Urine Blood Urine Nitrate Urine Bilirubin Urine Urobilinogen Urine Leukocytes Urine WBC Hyaline Casts Urine Mucus Ur Culture Indicated? Hepatitis A IgM Ab Hep Bs Antigen Hep B Core IgM Ab Hepatitis C Antibody 11/02/16 11/03/16 11/03/16 22:37 05:24 05:24 WBC 9.1 RBC 3.73 L Hgb 9.7 L 10.2 L Hct 29.9 L 32.2 L MCV 86.3 L MCH 27 MCHC 31.7 L RDW 17.1 Plt Count 164 MPV 12.5 H Neut % (Auto) 70.4 Lymph % (Auto) 18.9 L [place] % (Auto) 8.4 Eos % (Auto) 1.4 Baso % (Auto) 0.3 Neut # (Auto) 6.4 Lymph # (Auto) 1.7 [place] # (Auto) 0.8 Eos # (Auto) 0.1 Baso # (Auto) 0.0 Immature Gran % 0.6 Nucleated RBC % 0.0 Immature Gran # 0.05 Nucleated RBCs # 0.00 Immature Plt Fraction 0.0 INR PT Patient/Control Mix Circ Anticoag PTT Sodium 134 L Potassium 3.0 L Chloride 93 L Carbon Dioxide 25 Anion Gap 19.0 H BUN 118 H Creatinine 3.10 H GFR Calculation 20 BUN/Creatinine Ratio 38.00 H Glucose 84 POC Glucose Hemoglobin A1c Calculated Osmolality 304.2 H Calcium 9.1 Magnesium 2.8 H Total Bilirubin Direct Bilirubin Indirect Bilirubin AST ALT Alkaline Phosphatase Ammonia Total Creatine Kinase CK-MB (CK-2) CK and CKMB Interp Troponin I B-Natriuretic Peptide Total Protein Albumin Globulin Albumin/Globulin Ratio Triglycerides 108 Cholesterol 128 LDL Cholesterol 97.0 VLDL Cholesterol 21.6 HDL Cholesterol 18 L Heart Disease Risk Ratio 7.11 Free T4 TSH 3rd Generation 8.230 H Urine Color Urine Appearance Urine pH Ur Specific [place] Urine Protein Urine Glucose (UA) Urine Ketones Urine Blood Urine Nitrate Urine Bilirubin Urine Urobilinogen Urine Leukocytes Urine WBC Hyaline Casts Urine Mucus Ur Culture Indicated? Hepatitis A IgM Ab Hep Bs Antigen Hep B Core IgM Ab Hepatitis C Antibody 11/03/16 11/03/16 11/03/16 05:24 05:24 05:24 WBC RBC Hgb Hct MCV MCH MCHC RDW Plt Count MPV Neut % (Auto) Lymph % (Auto) [place] % (Auto) Eos % (Auto) Baso % (Auto) Neut # (Auto) Lymph # (Auto) [place] # (Auto) Eos # (Auto) Baso # (Auto) Immature Gran % Nucleated RBC % Immature Gran # Nucleated RBCs # Immature Plt Fraction INR PT Patient/Control Mix Circ Anticoag PTT Sodium Potassium Chloride Carbon Dioxide Anion Gap BUN Creatinine GFR Calculation BUN/Creatinine Ratio Glucose POC Glucose Hemoglobin A1c 6.6 H Calculated Osmolality Calcium Magnesium Total Bilirubin Direct Bilirubin Indirect Bilirubin AST ALT Alkaline Phosphatase Ammonia 76 H Total Creatine Kinase CK-MB (CK-2) CK and CKMB Interp Troponin I B-Natriuretic Peptide 1233 H Total Protein Albumin Globulin Albumin/Globulin Ratio Triglycerides Cholesterol LDL Cholesterol VLDL Cholesterol HDL Cholesterol Heart Disease Risk Ratio Free T4 1.09 TSH 3rd Generation Urine Color Urine Appearance Urine pH Ur Specific [place] Urine Protein Urine Glucose (UA) Urine Ketones Urine Blood Urine Nitrate Urine Bilirubin Urine Urobilinogen Urine Leukocytes Urine WBC Hyaline Casts Urine Mucus Ur Culture Indicated? Hepatitis A IgM Ab Hep Bs Antigen Hep B Core IgM Ab Hepatitis C Antibody 11/03/16 11/03/16 11/03/16 05:24 05:24 08:31 WBC RBC Hgb Hct MCV MCH MCHC RDW Plt Count MPV Neut % (Auto) Lymph % (Auto) [place] % (Auto) Eos % (Auto) Baso % (Auto) Neut # (Auto) Lymph # (Auto) [place] # (Auto) Eos # (Auto) Baso # (Auto) Immature Gran % Nucleated RBC % Immature Gran # Nucleated RBCs # Immature Plt Fraction INR 2.5 PT Patient/Control Mix 28.6 Circ Anticoag PTT Sodium Potassium Chloride Carbon Dioxide Anion Gap BUN Creatinine GFR Calculation BUN/Creatinine Ratio Glucose POC Glucose 91 Hemoglobin A1c Calculated Osmolality Calcium Magnesium Total Bilirubin 1.30 H Direct Bilirubin 0.70 H Indirect Bilirubin 0.6 AST 96 H ALT 117 H Alkaline Phosphatase 101 Ammonia Total Creatine Kinase CK-MB (CK-2) CK and CKMB Interp Troponin I B-Natriuretic Peptide Total Protein 6.7 Albumin 2.9 L Globulin Albumin/Globulin Ratio Triglycerides Cholesterol LDL Cholesterol VLDL Cholesterol HDL Cholesterol Heart Disease Risk Ratio Free T4 TSH 3rd Generation Urine Color Urine Appearance Urine pH Ur Specific [place] Urine Protein Urine Glucose (UA) Urine Ketones Urine Blood Urine Nitrate Urine Bilirubin Urine Urobilinogen Urine Leukocytes Urine WBC Hyaline Casts Urine Mucus Ur Culture Indicated? Hepatitis A IgM Ab Hep Bs Antigen Hep B Core IgM Ab Hepatitis C Antibody 11/03/16 11:52 WBC RBC Hgb Hct MCV MCH MCHC RDW Plt Count MPV Neut % (Auto) Lymph % (Auto) [place] % (Auto) Eos % (Auto) Baso % (Auto) Neut # (Auto) Lymph # (Auto) [place] # (Auto) Eos # (Auto) Baso # (Auto) Immature Gran % Nucleated RBC % Immature Gran # Nucleated RBCs # Immature Plt Fraction INR PT Patient/Control Mix Circ Anticoag PTT Sodium Potassium Chloride Carbon Dioxide Anion Gap BUN Creatinine GFR Calculation BUN/Creatinine Ratio Glucose POC Glucose 142 H Hemoglobin A1c Calculated Osmolality Calcium Magnesium Total Bilirubin Direct Bilirubin Indirect Bilirubin AST ALT Alkaline Phosphatase Ammonia Total Creatine Kinase CK-MB (CK-2) CK and CKMB Interp Troponin I B-Natriuretic Peptide Total Protein Albumin Globulin Albumin/Globulin Ratio Triglycerides Cholesterol LDL Cholesterol VLDL Cholesterol HDL Cholesterol Heart Disease Risk Ratio Free T4 TSH 3rd Generation Urine Color Urine Appearance Urine pH Ur Specific [place] Urine Protein Urine Glucose (UA) Urine Ketones Urine Blood Urine Nitrate Urine Bilirubin Urine Urobilinogen Urine Leukocytes Urine WBC Hyaline Casts Urine Mucus Ur Culture Indicated? Hepatitis A IgM Ab Hep Bs Antigen Hep B Core IgM Ab Hepatitis C Antibody - Diagnostic Findings Procedure: Chest x-ray: report reviewed by Tacos Levine Wesley, MD, personally performed the services described in this documentation, ascribed by Jade Mccoy RN in my presence, and it is both accurate and complete .
[2016-11-03] MEDS: WARFARIN 2.5 MG TABLET PO SCH (17:35)
[2016-11-03] MEDS ORDERED: traZODone 50 MG TABLET PO PRN (19:36)
[2016-11-03] MEDS: TAMSULOSIN 0.4 MG CAPSULE PO SCH (20:08)
[2016-11-04] MEDS: IPRATROPIUM 500 MCG/2.5 ML NEB RESP TX SCH ×4 (07:02→18:57)
[2016-11-04 07:07] LABS: Basophils % 0.2 % (0.0-0.8); Eosinophils # 0.1 10*3/uL (0.0-0.87); Eosinophils % 0.7 % (0.00-10.9); Hematocrit 32.4 VOL% (42.0-52.0); Hemoglobin 10.3 GM/DL (14.0-18.0); Immature Granulocytes % 0.4 %; Immature Granulocytes Absolute 0.04 #; Lymphocytes # 1.5 10*3/uL (1.4-4.0); Lymphocytes % 15.6 % (21.2-54.2); Mean Corpuscular HGB Conc 31.8 GM/DL (32-36); Mean Corpuscular Hemoglobin 27 PG (27-34); Mean Corpuscular Volume 86.2 FL (87-102); Mean Platelet Volume 12.6 FL (9.6-12.0); Monocytes # 0.8 10*3/uL (0.11-0.8); Monocytes % 8.4 % (1.7-12.7); NRBC # 0.02 10*3/uL; Neutrophils # 7.2 10*3/uL (1.4-7.4); Neutrophils % 74.7 % (38.7-73.9); Platelet Count 174 T/CUMM (130-400); Red Blood Count 3.76 MC/CUMM (3.8-5.5); Red Cell Distribution Width 17.2 % (9.3-17.3); White Blood Count 9.6 T/CUMM (4-12)
[2016-11-04 07:22] LABS: INR 3.1
[2016-11-04 07:32] LABS: PT Patient Result 35.1 SECS
[2016-11-04 07:39] LABS: Calcium 9.2 MG/DL (8.5-10.1); Magnesium 2.7 MG/DL (1.8-2.4); Osmolality,Calculated 298.7 MOS/KG (273-304); Potassium 3.8 MMOL/L (3.5-5.1)
[2016-11-04] MEDS: INSULIN LISPRO 100 UNIT/ML SUBCUT SCH ×3 (08:36→16:42)
[2016-11-04] MEDS: FUROSEMIDE 20 MG/2 ML VIAL IV SCH ×2 (08:36→17:13)
[2016-11-04] MEDS: DILTIAZEM CD 120 MG CAPSULE PO SCH (08:36)
[2016-11-04] MEDS: CETIRIZINE 10 MG TABLET PO SCH (08:37)
[2016-11-04] MEDS: PANTOPRAZOLE 40 MG TABLET PO SCH (08:37)
[2016-11-04] MEDS: ASPIRIN EC 81 MG TABLET PO SCH (08:37)
[2016-11-04] MEDS: VENLAFAXINE 75 MG TABLET PO SCH (08:37)
--- NOTE | 2016-11-04 10:00 | Cardiology Progress Note ---
Assessment and Plan (1) Coronary artery disease Status: Chronic Assessment and plan: He had CABG in 2016 as well as 1994. Current Visit: Yes (2) Paroxysmal atrial fibrillation Status: Chronic Current Visit: Yes (3) [id number] renal failure Status: Acute Assessment and plan: Nephrology has been consulted to follow this. Current Visit: Yes (4) Hypotension Status: Acute Assessment and plan: He had some low blood pressures during the night, this morning they have improved. Current Visit: Yes (5) Chronic anticoagulation Status: Chronic Assessment and plan: He is chronically anticoagulated on warfarin. INR today is 2.5, we will continue to monitor. 11/04: The risk-benefit ratio now favors holding Coumadin as his risk for bleeding is significant. Current Visit: Yes (6) Diabetes Status: Chronic Current Visit: Yes (7) History of pacemaker Status: Chronic Assessment and plan: He had single chamber pacemaker placed in 2012. Current Visit: No Cardiology - PN: Subj Interval history: This patient was admitted with worsening cirrhosis with anasarca and ascites. He is felt to have cirrhosis. He is on Coumadin for atrial fibrillation and I think we have gotten to a point where we are to hold his Coumadin as his risk for bleeding is outweighing the benefits related to its stroke prevention. He is progressively more encephalopathic this morning. He has what looks to me to be asterixis and I am going to ask Dr. Tapia to say so about checking an ammonia level. He has no p.o. intake and we are going to start him on some IV fluids. He is for support and comfort measures. Exam (Progress Note) - Constitutional Vitals: Period Temp Pulse Resp BP Sys/West Pulse Ox Last 24 Hr 96.8 F-97.4 F 71-118 15-24 91-102/53-71 94-99 Exam: General: Patient has altered sensorium with what appears to be asterixis HEENT: no new lesions, sclerae are clear, mouth and pharynx benign Neck: supple, trachea midline, no JVD noted Lungs: no rales ronchi or wheeze is noted. pt comfortable without accesory muscle use to assist with breathing CV: RRR no murmur rub or gallop is noted. Abd: soft and nontender, BSNA, no masses. Ext: no cyanosis, clubbing or edema Neuro: grossly intact without focal neurologic deficit. Result/EKG - Labs CBC & BMP: 11/04/16 06:21 11/04/16 06:21 Labs: Laboratory Results - last 24 hr 11/03/16 11/03/16 11/03/16 05:18 08:31 11:52 WBC RBC Hgb Hct MCV MCH MCHC RDW Plt Count MPV Neut % (Auto) Lymph % (Auto) [place] % (Auto) Eos % (Auto) Baso % (Auto) Neut # (Auto) Lymph # (Auto) [place] # (Auto) Eos # (Auto) Baso # (Auto) Immature Gran % Nucleated RBC % Immature Gran # Nucleated RBCs # Immature Plt Fraction INR PT Patient/Control Mix Sodium Potassium Chloride Carbon Dioxide Anion Gap BUN Creatinine GFR Calculation BUN/Creatinine Ratio Glucose POC Glucose 91 142 H Calculated Osmolality Calcium Magnesium 2.6 H 11/03/16 11/03/16 11/04/16 15:51 20:10 06:21 WBC 9.6 RBC 3.76 L Hgb 10.3 L Hct 32.4 L MCV 86.2 L MCH 27 MCHC 31.8 L RDW 17.2 Plt Count 174 MPV 12.6 H Neut % (Auto) 74.7 H Lymph % (Auto) 15.6 L [place] % (Auto) 8.4 Eos % (Auto) 0.7 Baso % (Auto) 0.2 Neut # (Auto) 7.2 Lymph # (Auto) 1.5 [place] # (Auto) 0.8 Eos # (Auto) 0.1 Baso # (Auto) 0.0 Immature Gran % 0.4 Nucleated RBC % 0.2 Immature Gran # 0.04 Nucleated RBCs # 0.02 Immature Plt Fraction 0.0 INR PT Patient/Control Mix Sodium Potassium Chloride Carbon Dioxide Anion Gap BUN Creatinine GFR Calculation BUN/Creatinine Ratio Glucose POC Glucose 159 H 138 H Calculated Osmolality Calcium Magnesium 11/04/16 11/04/16 11/04/16 06:21 06:21 07:08 WBC RBC Hgb Hct MCV MCH MCHC RDW Plt Count MPV Neut % (Auto) Lymph % (Auto) [place] % (Auto) Eos % (Auto) Baso % (Auto) Neut # (Auto) Lymph # (Auto) [place] # (Auto) Eos # (Auto) Baso # (Auto) Immature Gran % Nucleated RBC % Immature Gran # Nucleated RBCs # Immature Plt Fraction INR 3.1 PT Patient/Control Mix 35.1 D Sodium 131 L Potassium 3.8 Chloride 93 L Carbon Dioxide 22 Anion Gap 19.8 H BUN 119 H Creatinine 3.30 H GFR Calculation 18 BUN/Creatinine Ratio 36.00 H Glucose 72 L POC Glucose 80 Calculated Osmolality 298.7 Calcium 9.2 Magnesium 2.7 H
[2016-11-04] MEDS ORDERED: DEXTROSE 5% NACL 0.45% 1,000 ML IV SCH (10:30)
--- NOTE | 2016-11-04 10:32 | Hospitalist Progress Note ---
Assessment and Plan (1) Hypotension Status: Acute Assessment and plan: Improved Plan Follow BC Current Visit: Yes (2) Paroxysmal atrial fibrillation Status: Chronic Assessment and plan: Cardiology is following. patient is on anticoagulation Current Visit: Yes (3) Fnjln-vt-rzlctar renal failure Status: Acute Assessment and plan: Nephrology has been consulted Current Visit: Yes (4) Diabetes Status: Chronic Assessment and plan: stable on current regime. LsV7m-7.6 Current Visit: Yes (5) Elevated liver enzymes Status: Acute Assessment and plan: Hepatitis panel is negative. Liver USS showed Sludge and debris within the gallbladder. Slight nodular appearance of the liver with component of ascites. A component of cirrhosis is questioned. Plan Awaiting GI consult Current Visit: No (6) Hyperlipidemia Status: Chronic Assessment and plan: Lipid profile noted. Current Visit: No (7) CHF (congestive heart failure) Status: Chronic Assessment and plan: BNP 813. CXR showed CHF and mild cardiomegaly. Cardiology is following.Continue Lasix Current Visit: No (8) Hypokalemia Status: Acute Assessment and plan: Improved Current Visit: Yes (9) Altered mental status Status: Acute Assessment and plan: This is most likely multifactorial- most likely hepatic encephalopathy to r/o sundowning at night vs worsening of underlying dementia. Will also treat hypothyroidism and r/o uremia Plan CT head Start Lactulose Start synthroid Consider Risperidone at night Vit b12, folate, RPR level Liver enzymes cardiac enzymes Follow cultures GI/Nephrology consults. Current Visit: Yes (10) Hypothyroidism Status: Acute Assessment and plan: with elevated TSH of 8.2 start synthroid Current Visit: Yes (11) Cirrhosis of liver with ascites Status: Acute Assessment and plan: awaiting GI's input Start Lactulose Current Visit: Yes Hospitalist: Subjective Interval history: Patient seen. family states patien is more confused mostly at night. He also has diminished appetite. Exam - Constitutional Vitals: Period Temp Pulse Resp BP Sys/West Pulse Ox Last 24 Hr 96.8 F-97.4 F 71-118 15-24 91-102/53-71 94-99 General appearance: no acute distress - Head Head exam: Present: normal inspection - Respiratory Respiratory exam: Present: clear to auscultation bilaterally - Cardiovascular Cardiovascular exam: Present: regular rate and rhythm - GI/Abdominal GI/Abdominal exam: Present: ascites - Extremities Exam Extremities exam: Present: normal inspection Results - Labs CBC & BMP: 11/04/16 06:21 11/04/16 06:21 Lab Results: I have reviewed the past 24 hour labs
[2016-11-04] MEDS ORDERED: LACTULOSE 20 GM/30 ML UDCUP PO SCH (11:00)
[2016-11-04 11:05] LABS: Bilirubin,Indirect 0.7 MG/DL (0.0-1.0); Bilirubin,Total 1.7 MG/DL (0.2-1.0); Total Protein 6.6 G/DL (6.4-8.3)
[2016-11-04 11:22] LABS: CKMB % 2.9 %
[2016-11-04 11:23] LABS: Troponin I Only 0.062 NG/ML (0.00-0.045)
[2016-11-04 11:36] LABS: Folate 21.4 NG/ML (5.4-24.0); Vitamin B12 1768 PG/ML (211-911)
[2016-11-04 11:50] VITALS: BP 110/98
--- NOTE | 2016-11-04 12:04 | EKG Report ---
Stationary ECG Study [facility] Test Date: 11/04/2016 12:04:30 PM Pat Name: IRA OSBORN Department: Room: 236 Gender: M Pepper Cutter: KERVIN : 1935 Requested by: Holli Villa Order Number: [id number] Reading MD: MOY GANN Intervals [place] Rate: 106 P: 999 LA: 0 QRS: 125 QRSD: 124 T: -64 QT: 393 QTc: 455 Interpretive Statements Atypical atrial flutter with 2:1 conduction POSSIBLE RIGHT VENTRICULAR HYPERTROPHY ST DEVIATION AND MODERATE T-WAVE ABNORMALITY, CONSIDER LATERAL ISCHEMIA ST DEVIATION AND MODERATE T-WAVE ABNORMALITY, CONSIDER INFERIOR ISCHEMIA Electronically Signed On 11-06-16 07:23:20 CDT by MOY GANN [email or web address]
--- NOTE | 2016-11-04 12:14 | ECHO Report ---
Maya Vin Exam Date: 11/03/2016 13:38 Referring Physician: Technologist: Age: 81 Ht (in): Wt (lb): Gender: M Exam Location: [facility] Echo Indications: BP: 102 / 53 HR: 80 Rhythm: Sinus Technical Quality: Good IMPRESSIONS Normal left ventricular cavity size. Mild concentric left ventricular hypertrophy with diastolic dysfunction. Severely decreased left ventricular systolic function, left ventricular ejection fraction is at estimated at 10-15%. Normal right ventricular size. Moderately increased right atrial size. Moderately increased left atrial size. Mildly thickened mitral valve with moderate mitral regurgitation. Mild aortic valve sclerosis without stenosis. Trace aortic valve regurgitation. Morphologically normal tricuspid valve. Feyc-tm-[id number] tricuspid valve regurgitation. Tricuspid regurgitation velocities suggest a PAP of 14.3 mmHg + RAP. Morphologically normal pulmonic valve. Trace pulmonary valve regurgitation. No pericardial effusion. Normal size aortic root and proximal ascending aorta. MEASUREMENTS (Male / Female) Normal Values 2D ECHO LV Diastolic Diameter PLAX 5.3 cm 4.2 - 5.9 / 3.9 - 5.3 cm LV Systolic Diameter PLAX 5.1 cm LV Fractional Shortening PLAX 2.3 % IVS Diastolic Thickness 1.3 cm 0.6 - 1.0 / 0.6 - 0.9 cm LVPW Diastolic Thickness 1.2 cm 0.6 - 1.0 / 0.6 - 0.9 cm Aortic Root Diameter 2.8 cm LA Systolic Diameter LX 4.6 cm 3.0 - 4.0 / 2.7 - 3.8 cm DOPPLER TR Peak Velocity 189.0 cm/s TR Peak Gradient 14.3 mmHg FINDINGS Left Ventricle Normal left ventricular cavity size. Mild concentric left ventricular hypertrophy with diastolic dysfunction. Severely decreased left ventricular systolic function, left ventricular ejection fraction is at estimated at 10-15%. Right Ventricle Normal right ventricular size. Right Atrium Moderately increased right atrial size. Left Atrium Moderately increased left atrial size. Mitral Valve Mildly thickened mitral valve with moderate mitral regurgitation. Aortic Valve Mild aortic valve sclerosis without stenosis. Trace aortic valve regurgitation. Tricuspid Valve Morphologically normal tricuspid valve. Poce-ck-ppbbcwgf tricuspid valve regurgitation. Tricuspid regurgitation velocities suggest a PAP of 14.3 mmHg + RAP. Pulmonic Valve Morphologically normal pulmonic valve. Trace pulmonary valve regurgitation. Pericardium No pericardial effusion. Aorta Normal size aortic root and proximal ascending aorta. Corona Balderrama MD (Electronically Signed) Final Date: 04 November 2016 12:13
--- NOTE | 2016-11-04 13:07 | CT Report ---
History: Altered mental status Date: 11/04/2016 Study: CT head without contrast Comparison exam: No previous brain imaging study available Transaxial CT sections were obtained through the head without IV contrast. Total DLP measures 1144.8 mGy*cm. This CT exam was performed using one or more the following dose reduction techniques: Automated exposure control, adjustment of the MA and/or KV according to patient size, or use of iterative reconstruction technique. The ventricles are midline in position without evidence of hydrocephalus. There is mild to moderate diffuse cerebral atrophy. There is no mass or parenchymal hemorrhage. There is no gross CT evidence of acute cortical stroke. Chronic right MCA distribution areas of infarction are noted in the right frontal and parietal lobes. There is a small amount of ill-defined low density in the periventricular white matter without mass effect compatible with changes of small vessel disease. There is no acute extra-axial hematoma. There is moderate distal carotid artery calcification. Impression: Chronic ischemic changes. No acute intracranial process PROCEDURE INTERPRETED AT [facility] DEPARTMENT OF RADIOLOGY Final Report Signed by: Dr. Alina Rasmussen
--- NOTE | 2016-11-04 16:10 | Gastrointestinal Consult Note ---
Assessment and Plan (1) Abdominal pain Status: Acute Current Visit: Yes (2) CHF (congestive heart failure) Status: Chronic Current Visit: No (3) Elevated liver enzymes Status: Acute Current Visit: No (4) Cirrhosis of liver with ascites Status: Acute Assessment and plan: PLEASE NOTE -- automatic citation of patient information is unavoidable in this electronic note. I have made a reasonable effort to review the information cited , but it is not a part of my evaluation, impression, or recommendation unless specifically discussed in the dictated text that follows. As well, voice recognition software was used in the creation of this clinical note. Reasonable effort was made to identify and correct gross errors. Despite proofreading, errors in parks recreation coordinator may be present, including nonsense verbiage at times. If you encounter such an error, please contact me at [phone] for discussion and correction. -- Dr. Valle Chief complaint/Consult Question: Elevated liver associated enzymes, question of cirrhosis Consult requested by: Christian History of present illness: History obtained by multiple family members in the room, , and patient, as well as chart. This is a new patient, a 81-year-old man named Vin Trejo, admitted from clinic after labs revealed significant elevation in liver associated enzymes and acute on chronic renal failure with significant increase in BUN from 4224, extensive cardiac history. Total bilirubin 1.3, AST 111, ALT 139, ammonia 54, creatinine 3.1. Family states that patient was in his relative stable health, which includes near full assistance with activities of daily living due to walker use leg swelling, and chronic joint pain, but Sunday developed much worsening mental status as well as significant abdominal and lower extremity swelling. Workup here demonstrates significant systolic CHF, EF 10-15%, liver labs and imaging suggestive of cirrhosis, new onset ascites. Family denies any prior knowledge of patient having liver disease or cirrhosis. Patient with diffuse abdominal pain, worse with compression of ascites. He is awake and alert, indicating that he would like to go home more than anything, be with my people, audibly asked Wyatt for final forgiveness, and patient and family would like to move forward with hospice. GI review of systems: limited due to pain and patient mental status REVIEW OF SYSTEMS: Complete other review of systems limited, but negative except as noted in the HPI : chronic pain, desire to go home, ready to Outpatient medications: Personally reviewed aspirin 81 mg daily, spironolactone 6.5 mg p.o. every morning, metolazone 2.5 mg p.o. q. other day, Lasix 40 mg p.o. every morning, potassium 20 mEq daily, bisoprolol 10 mg p.o. twice daily, Coumadin 2.5 mg p.o. every afternoon, omeprazole 20 mg p.o. nightly Effexor, Spiriva, nitro tabs, linagliptin, hydrocodone, Zyrtec, trazodone, ropinirole, allopurinol, diltiazem, tamsulosin Inpatient medications: Personally reviewed, most significant for Aspirin 81 mg Lasix 20 mg IV twice daily Lactulose 10 g p.o. twice daily Synthroid 25 mcg daily Protonix 40 mg p.o. daily Potassium 20 mEq daily Coumadin daily Flomax daily And others Past Medical History: Personally reviewed GERD, dementia, hypertension, A. fib, AK, CAD, severe systolic CHF, CABG, pacemaker, depression, CVA, diabetes, dyslipidemia, DOMINGO, prostate cancer, osteoarthritis Social history: Sober for 15-18 years, prior heavy daily alcohol use for decades. Patient is DNR Family history: No known liver disease, multiple family members with rheumatoid arthritis PHYSICAL EXAMINATION: CONSTITUTIONAL: Vital signs reviewed as documented above. In no acute distress. Nontoxic-appearing. EYES: Anicteric conjunctiva. Extra-ocular movements are intact and symmetric. EARS: Able to hear speech at conversational volume level, no external trauma/ masses. MOUTH: No oral/mouth lesions or ulcers. NECK: No masses or crepitus. Thyroid is of normal size and symmetric. HEART: Regular rate, regular rhythm LUNGS: Mild increased work of breathing, but patient comfortable laying flat, no accessory muscle use. GI/ABDOMEN: Thin abdomen, soft, diffusely distended, positive fluid wave, diffusely tender to palpation, compressible and nonrigid. No palpable mass. No appreciable hepatosplenomegaly, exam limited by large ascites. MUSCULOSKELETAL: Muscle tone appears symmetrically reduced without any abnormal movements. PSYCH: Affect is somewhat fearful, anxious, and begging to go home. Alert and oriented to person, place, and time. Laboratory: Personally reviewed CBC: 9.6/10 0.3/174, all stable since admission. INR increased from 2.6-3.1 (on Coumadin) CMP with sodium 131, potassium 3.8, bicarb 22, chloride 93, anion gap of 20, BUN 119, creatinine 3.3 Hemoglobin A1c 6.6 Calculated osmolality around 300 consistently Total bilirubin has increased from 1.3-1.7 since admission Direct bilirubin from 0.5-1.0 since admission AST 111, 96, 102 ALT 139, 117, 104 Alk phos 106, 101, 94 next lineammonia 54, 76, 43 Total protein 7.6, 6.7, 6.6 Albumin 3.2, 2.9, 3.0 B12 1768 Folate 21 TSH 8.2, free T4 1.09 UA bland RPR negative Acute hepatitis a antibody negative Hepatitis B core IgM antibody and surface antigen negative Hepatitis C antibody negative Radiology: Personally reviewed reports and images Head CT November 04, 2016. Chronic ischemic changes. No acute intracranial process. Chronic right MCA distribution areas of infarction are noted in the right frontal and parietal lobes. Low density periventricular white matter without mass-effect compatible with changes of small vessel disease. No acute extra-axial hematoma. Moderate distal carotid artery calcification Liver ultrasoundhepatic and portal veins are patent. Liver has somewhat of a slightly nodular component is reported. Gallbladder wall thickness 4.1 mm. Gallbladder sludge and debris present. No intrahepatic duct dilation, CBD 5 mm. Pancreas poorly visualized. Right kidney without hydronephrosis, 1.7 cm cyst. +Ascites present Doppler ultrasound lower extremity November 03, 2016no evidence of acute DVT Renal ultrasound from November 02, 2016no hydronephrosis, perinephric fluid collection, or nephrolithiasis of either kidney. Right renal cyst again seen. Similar subcentimeter cyst in the left kidney. Positive ascites. Chest x-ray November 02, 2016, consistent with congestive heart failure and pulmonary edema Echocardiogram November 03, 2016mild concentric left ventricular hypertrophy with diastolic dysfunction. Severely decreased left ventricular systolic function with an EF of 10-15%. Normal RV size, moderately increased right atrial size, moderately increased left atrial size, mildly thickened mitral valve with moderate mitral regurg. Mild aortic valve sclerosis with stenosis. Tricuspid valve. Mild to moderate tricuspid valve regurg. Trace pulmonary valve regurg. No pericardial effusion. Assessments: #Heart failure exacerbation: With EF of 10-15%. Suspect that liver findings, ascites, renal failure all secondary to severe systolic heart failure exacerbation. #Elevated liver associated enzymes. These of actually seen a general downward trend since August 2016 at which time AST peaked around 200, ALT peaked around 150 , alk phos as well to 120s-140s, but total bilirubin increase is new. Prior to MayJuly 2015 were completely normal #Cirrhosis: Appears clinically apparent with nodular texture of the liver, low platelets, presence of ascites. With current clinical picture, most consistent with secondary to heart failure. Family history of rheumatoid arthritis does raise suspicion for possible autoimmune liver disease. Prior heavy alcohol abuse, but quit greater than 15 years ago, but not likely present with these acute findings. #Ascites: New onset, large volume. Differential diagnosis includes secondary to heart failure, secondary to cirrhosis, with concern for bacterial peritonitis in the setting of diffuse abdominal pain and altered mental status. #Gallbladder wall thickening with debris and sludge. Concerning for possible chronic cholecystitis, versus secondary edema and stasis from cirrhosis #Right MCA and distal carotid artery calcification: Likely responsible for underlying chronic mental status changes, could exacerbate during acute illness such as now with CHF exacerbation #Other specified counseling -- The patient was seen for greater than 30 minutes. The patient was counseled for greater than 50% of this time regarding differential diagnosis, likely diagnosis, diagnostic and therapeutic alternatives, risks/benefits/alternatives of medications and procedures, and plan of care generally. The patient expressed understanding and wishes to proceed. Recommendations: -Initial recommendations included diagnostic and therapeutic paracentesis, lactic acid level for concern for anion gap acidosis, discontinuing daily ammonia, consideration for continuation of Coumadin, minimize acetaminophen use to 2000 mg daily, and additional liver studies including iron ,ferritin, ELIOT, ASMA, AMA, alpha 1 antitrypsin level and gentotype -HOWEVER, after discussion with the patient and family regarding current diagnoses, potential for treatable component of symptoms and illness, recommended labs and paracentesis, as well as likely persistent recurrent symptoms and hospitalizations from above conditions, patient and family would like to move forward with discharge home today and hospice services. I have spoken to the primary team provider, and social work has been engaged. Social work to see the patient today to help arrange care for home hospice. -Family requesting [facility] as hospice provider based on prior positive experience with this group I have updated the family with the current status of the plan. GI will sign off at this time. Please feel free to call with any questions. Keiry Valle MD, MPH STAFF SUPERVISOR FABRICATION Current Visit: Yes History of Present Illness History of present illness: Mr. Trejo is a 81 year old male Home Medications Medication Instructions Recorded Confirmed Type Allopurinol 100 mg PO QAM 05/19/15 11/02/16 History HYDROcodone/ACETAMIN 10-325 [[place] 1 tablet PO TID 05/19/15 11/02/16 History 10-325] Nitroglycerin Sl Tab [Nitrostat] 0.4 mg SL Q5M PRN 05/19/15 11/02/16 History Omeprazole 20 mg PO BEDTIME 05/19/15 11/02/16 History rOPINIRole [Requip] 1 mg PO Q3D 05/19/15 11/02/16 History traZODone [Desyrel] 50 - 100 mg PO BEDTIME 05/19/15 11/02/16 History Aspirin EC Tab 81 mg PO QAM 09/07/16 11/02/16 History Cetirizine HCl [Cetirizine Tab] 10 mg PO QAM 09/07/16 11/02/16 History Furosemide Tab [Lasix Tab] 40 mg PO QAM 09/07/16 11/02/16 History Linagliptin [Tradjenta] 5 mg PO QAM 09/07/16 11/02/16 History Tiotropium Kirkman [Spiriva 4 gm IH BID 09/07/16 11/02/16 History Respimat] Warfarin [Coumadin] 2.5 mg PO QPM 09/07/16 11/02/16 History dilTIAZem HCl [Diltiazem ER (24 120 mg PO QAM 09/07/16 11/02/16 History hr)] Bisoprolol [Zebeta] 10 mg PO BID #120 tablet 09/12/16 11/02/16 Rx Tamsulosin [Flomax] 0.4 mg PO BEDTIME #30 capsule 09/12/16 11/02/16 Rx Potassium Chloride 20 meq PO 0800,1200 11/02/16 11/02/16 History Spironolactone 6.25 mg PO QAM 11/02/16 11/02/16 History Venlafaxine [Effexor] 75 mg PO BID 08/03/17 08/03/17 History metOLazone [Metolazone] 2.5 mg PO QOTHER DAY 11/02/16 11/02/16 History Allergies Allergy/AdvReac Type Severity Reaction Status Date / Time dexamethasone AdvReac Severe Palpitation Verified 09/07/16 19:57 s Medical,Surgical,& Family Hx - Medical History Cardio: History of: Cardiac Dysrhythmia, CHF, CAD, Hypertension, AK, Pacemaker, Cardiovascular Problems (aortic anyresum -- sees Dr. King) Psychological: History of: Depression Neurology: History of: Cerebrovascular Accident, Migraine, Vertigo No history of: Seizures HEENT: History of: Eye Problem (CATARACTS), Dental Problems (FULL UPPER AND LOWER DENTURES) Endocrine: History of: Diabetes Mellitus (NIDDM), Dyslipidemia Respiratory: History of: COPD, Obstructive Sleep Apnea, Pneumonia, Respiratory Problems (EMPHYSEMA) Renal: History of: Renal Problems (has mild renal insufficiency, stageII) Genitourinary: History of: Bladder Problem, Prostate Problems (PROSTATE CA) Gastrointestinal: History of: GERD, Gastrointestinal Bleed, Hemorrhoids, Polyps Musculoskeletal: History of: Back/Neck Problems, Herniated Disk, Musculoskeletal Problems (OSTEOARTHRITIS) No history of: Amputation Other: History of: Cancer (prostate ca) - Surgical History Cardiac Surgeries: Sugical HX of: Cardiac Catheterization, Cardiac Surgery ( OPEN HEART SURGERY x2 2015 and 1994) Thoracic Surgeries: Patient denies;: Organ Transplant, Lobectomy HEENT Surgeries: Surgical HX of: Eye Surgery (CATARACTS) Patient denies: Tonsilectomy & Adenoidectomy Abdominal Surgeries: Surgical HX of: Abdominal Surgery, Colonoscopy Reproductive Surgeries: Patient denies;: Genitourinary Surgery - Family History Family History: Reports;: Family Cancer, Family Diabetes, Family Heart Disease, Family Hypertension, Family Stroke - Social History Smoking Status: Former smoker (Quit in 1988) Frequency of Alcohol Use: None Type of Drug Use: None Exam - Constitutional Vitals: Period Temp Pulse Resp BP Sys/West Pulse Ox Last 24 Hr 96.8 F-97.4 F 74-109 15- 91-110/58-98 94-100 Results - Labs CBC & BMP: 11/04/16 06:21 11/04/16 06:21
--- NOTE | 2016-11-04 16:34 | Discharge Summary ---
Hospital Course - Hospital Course Hospital Course: Mr Trejo is a 81 year old white male with multiple medical issues including dementia, GERD, hypertension, A. fib, NH, CAD, CHF, CABG, pacemaker, depression , CVA, diabetes, dyslipidemia, DOMINGO, prostate cancer, osteoarthritiswho was sent from his PCP' office for evaluation of abnormal blood work. Upon arrival to the ER,he was noticed to have ascites, swollen scrotum and labs showed h&h 10.5/ 32.5, sodium 131, K 3.1, Bun 124, creatinine 3.1, total bilirubin 1.3, AST 111, ALT 139, ammonia 54, total creatinine kinase 632, ck-mb 20.9, AST 111, ALT of 139. His blood pressure was also borderline low. He was admitted,his blood pressure meds were held and he was initially given some IVf and later started back on Lasix and diltiazem.Hepatitis panel is negative. Liver USS showed Sludge and debris within the gallbladder. Slight nodular appearance of the liver with component of ascites. A component of cirrhosis is questioned. His ammonia was high. He received some lactulose. Cardiology saw in consultation. BNP 813. CXR showed CHF and mild cardiomegaly. Dopler showed no DVT.Echo showed Normal left ventricular cavity size.Mild concentric left ventricular hypertrophy with diastolic dysfunction.Severely decreased left ventricular systolic function, left ventricular ejection fraction is at estimated at 10-15% .Family complained that patient was more confused, CT head showed no acute changes. GI was consulted. We discussed the overall condition with family members, highlighting that patient had a lot going on and the fact that patient kept screaming he was tired and wanted to go home which created an emotional atmosphere and family members decided they didnt want any more tests and treatment and they wanted to take him home to hospice. treasury manager has been consulted and she is making arrangement for [facility].He will be discharged today. I have held DM meds because patient is not eating much.He will continue with sliding scale.I also held some home bp meds due to borderline bp. - Time spent with patient Time with patient DS: Greater than 30 minutes (greater than 30mins) Diagnosis - Discharge Diagnosis (1) Hypotension Status: Acute (2) Paroxysmal atrial fibrillation Status: Chronic (3) [id number] renal failure Status: Acute (4) Diabetes Status: Chronic (5) Elevated liver enzymes Status: Acute (6) Hyperlipidemia Status: Chronic (7) CHF (congestive heart failure) Status: Chronic (8) Hypokalemia Status: Acute (9) Altered mental status Status: Acute (10) Hypothyroidism Status: Acute (11) Cirrhosis of liver with ascites Status: Acute Discharge Plan - Discharge Data Disposition: Hospice - Home Condition at Discharge: Stable Discharge Diet: advance to your usual diet Activity: resume usual activities as tolerated - Discharge Medications New Levothyroxine Tab [Synthroid Tab] 25 mcg PO DAILY@0700 #30 tablet Insulin Lispro [HumaLOG] See Protocol SUBCUT ACHS unit HYDROcodone/ACETAMIN 5-325 [[place] 5-325] 1 tablet PO Q4H PRN #20 tablet PRN Reason: Pain Mild (1-3) Lactulose Liquid [Chronulac] 10 gm PO BID #30 Continue traZODone [Desyrel] 50 - 100 mg PO BEDTIME rOPINIRole [Requip] 1 mg PO Q3D Nitroglycerin Sl Tab [Nitrostat] 0.4 mg SL Q5M PRN PRN Reason: Chest Pain Omeprazole 20 mg PO BEDTIME Aspirin EC Tab 81 mg PO QAM Furosemide Tab [Lasix Tab] 40 mg PO QAM Cetirizine HCl [Cetirizine Tab] 10 mg PO QAM dilTIAZem HCl [Diltiazem ER (24 hr)] 120 mg PO QAM Tiotropium [place] [Spiriva Respimat] 4 gm IH BID Tamsulosin [Flomax] 0.4 mg PO BEDTIME #30 capsule Venlafaxine [Effexor] 75 mg PO BID Discontinued Allopurinol 100 mg PO QAM HYDROcodone/ACETAMIN 10-325 [[place] 10-325] 1 tablet PO TID Warfarin [Coumadin] 2.5 mg PO QPM Bisoprolol [Zebeta] 10 mg PO BID #120 tablet Spironolactone 6.25 mg PO QAM metOLazone [Metolazone] 2.5 mg PO QOTHER DAY Linagliptin [Tradjenta] 5 mg PO QAM Potassium Chloride 20 meq PO 0800,1200 - Follow Up or Referral - Forms/Instructions Exam - Constitutional Vitals: Period Temp Pulse Resp BP Sys/West Pulse Ox Last 24 Hr 97.0 F-97.4 F 74-109 15-20 91-110/58-98 94-100 General appearance: no acute distress - Head Head exam: Present: normal inspection - Respiratory Respiratory exam: Present: clear to auscultation bilaterally - Cardiovascular Cardiovascular exam: Present: regular rate and rhythm - GI/Abdominal GI/Abdominal exam: Present: normal bowel sounds - Extremities Exam Extremities exam: Present: normal inspection - Neurological Exam Neurological exam: Present: alert Discharge Results Procedures and tests throughout hospitalization: Pending Orders 11/03/16 15:00 Blood Culture Routine 11/04/16 18:00 Troponin,CKMB & Ck Total Routine 11/05/16 04:00 Ammonia IN AM Basic Metabolic Panel IN AM Comp Blood Count Auto Diff IN AM Comprehensive Metabolic Panel IN AM Magnesium IN AM Prothrombin Time INR IN AM Labs on day of discharge: Labs from last 24 hours 11/04/16 11/04/16 11/04/16 11:18 10:18 10:18 WBC RBC Hgb Hct MCV MCH MCHC RDW Plt Count MPV Neut % (Auto) Lymph % (Auto) Petroleum % (Auto) Eos % (Auto) Baso % (Auto) Neut # (Auto) Lymph # (Auto) Petroleum # (Auto) Eos # (Auto) Baso # (Auto) Immature Gran % Nucleated RBC % Immature Gran # Nucleated RBCs # Immature Plt Fraction INR PT Patient/Control Mix Sodium Potassium Chloride Carbon Dioxide Anion Gap BUN Creatinine GFR Calculation BUN/Creatinine Ratio Glucose POC Glucose 102 Calculated Osmolality Calcium Magnesium Total Bilirubin Direct Bilirubin Indirect Bilirubin AST ALT Alkaline Phosphatase Ammonia Total Creatine Kinase 1138 H D CK-MB (CK-2) 33.0 H D CK and CKMB Interp 2.9 Troponin I 0.062 H D Total Protein Albumin Vitamin B12 1768 H Folate 21.4 Treponema pallidum IgG Nonreactive 11/04/16 11/04/16 11/04/16 10:18 07:08 06:21 WBC RBC Hgb Hct MCV MCH MCHC RDW Plt Count MPV Neut % (Auto) Lymph % (Auto) Petroleum % (Auto) Eos % (Auto) Baso % (Auto) Neut # (Auto) Lymph # (Auto) Petroleum # (Auto) Eos # (Auto) Baso # (Auto) Immature Gran % Nucleated RBC % Immature Gran # Nucleated RBCs # Immature Plt Fraction INR 3.1 PT Patient/Control Mix 35.1 D Sodium Potassium Chloride Carbon Dioxide Anion Gap BUN Creatinine GFR Calculation BUN/Creatinine Ratio Glucose POC Glucose 80 Calculated Osmolality Calcium Magnesium Total Bilirubin 1.70 H Direct Bilirubin 1.00 H Indirect Bilirubin 0.7 AST 102 H ALT 104 H Alkaline Phosphatase 94 Ammonia 43 H Total Creatine Kinase CK-MB (CK-2) CK and CKMB Interp Troponin I Total Protein 6.6 Albumin 3.0 L Vitamin B12 Folate Treponema pallidum IgG 11/04/16 11/04/16 11/03/16 06:21 06:21 20:10 WBC 9.6 RBC 3.76 L Hgb 10.3 L Hct 32.4 L MCV 86.2 L MCH 27 MCHC 31.8 L RDW 17.2 Plt Count 174 MPV 12.6 H Neut % (Auto) 74.7 H Lymph % (Auto) 15.6 L Petroleum % (Auto) 8.4 Eos % (Auto) 0.7 Baso % (Auto) 0.2 Neut # (Auto) 7.2 Lymph # (Auto) 1.5 Petroleum # (Auto) 0.8 Eos # (Auto) 0.1 Baso # (Auto) 0.0 Immature Gran % 0.4 Nucleated RBC % 0.2 Immature Gran # 0.04 Nucleated RBCs # 0.02 Immature Plt Fraction 0.0 INR PT Patient/Control Mix Sodium 131 L Potassium 3.8 Chloride 93 L Carbon Dioxide 22 Anion Gap 19.8 H BUN 119 H Creatinine 3.30 H GFR Calculation 18 BUN/Creatinine Ratio 36.00 H Glucose 72 L POC Glucose 138 H Calculated Osmolality 298.7 Calcium 9.2 Magnesium 2.7 H Total Bilirubin Direct Bilirubin Indirect Bilirubin AST ALT Alkaline Phosphatase Ammonia Total Creatine Kinase CK-MB (CK-2) CK and CKMB Interp Troponin I Total Protein Albumin Vitamin B12 Folate Treponema pallidum IgG 11/03/16 15:51 WBC RBC Hgb Hct MCV MCH MCHC RDW Plt Count MPV Neut % (Auto) Lymph % (Auto) Petroleum % (Auto) Eos % (Auto) Baso % (Auto) Neut # (Auto) Lymph # (Auto) Petroleum # (Auto) Eos # (Auto) Baso # (Auto) Immature Gran % Nucleated RBC % Immature Gran # Nucleated RBCs # Immature Plt Fraction INR PT Patient/Control Mix Sodium Potassium Chloride Carbon Dioxide Anion Gap BUN Creatinine GFR Calculation BUN/Creatinine Ratio Glucose POC Glucose 159 H Calculated Osmolality Calcium Magnesium Total Bilirubin Direct Bilirubin Indirect Bilirubin AST ALT Alkaline Phosphatase Ammonia Total Creatine Kinase CK-MB (CK-2) CK and CKMB Interp Troponin I Total Protein Albumin Vitamin B12 Folate Treponema pallidum IgG Preliminary micro results at discharge 11/03/16 15:00 Blood Culture - Preliminary Blood No growth at 1 day 11/03/16 15:00 Blood Culture - Preliminary Blood No growth at 1 day DS: Provider Date of admission: 11/02/16 17:08 Primary care physician: Roberto Khan Attending physician on admission: Dandre Gonzales MD Consults: 11/02/16 18:16 Consult to Physician [CONS] Routine Comment: Consulting Provider: Antione Frederick Consult to Physician [CONS] Routine Comment: [facility] Consulting Provider: Carri Faustin 11/02/16 18:43 Consult to Pastoral Services [CONS] Routine Comment: Pastoral Screen: Request Stage Builder Visit 11/03/16 10:51 Consult to Physical Therapy [CONS] Routine Reason for Physical Therapy: Ambulation 11/04/16 09:47 Consult to Physician [CONS] Routine Comment: Consulting Provider: Consult to Specialist Group: Gastroenterology When should Consulting Provider be notified: Now Person Notified: Date Notified: 11/04/16 Time Notified: 14:10 Consult Notification Comment: will see pt in am 11/04/16 09:48 Consult to Physician [CONS] Routine Comment: Consulting Provider: Taiwo Keyes Consulting Provider Notified: Yes When should Consulting Provider be notified: In am Consult to Specialist Group: Nephrology When should Consulting Provider be notified: Now Person Notified: Dr Keyes Date Notified: 11/04/16 Time Notified: 14:00 Consult Notification Comment: will see in am 11/04/16 16:01 Consult to Case Mgmt/Social Srvs [CONS] Routine Reason for Case Mgmt/Social Srvs: Hospice Referral Consult Comment[facility] Discharging clinician: Holli Villa MD
[2016-11-05] MEDS ORDERED: LEVOTHYROXINE 25 MCG TABLET PO SCH (07:00)
--- NOTE | 2016-11-09 08:23 | Physician Query Form ---
CLICK EDIT DOCUMENT TO SELECT QUERY ANSWER --> OK --> SIGN Oksana Ritter RN Clinical Traffic Signal Supervisor Maintenance W) [phone] (f) [phone] [email or web address] PROVIDERS: Make your selection(s) from the choices in EACH section by typing an "x" and enter comments in the comment section. Please use your independent medical judgment in providing your response. This request does not imply that any particular answer is desired or expected. CLINICAL INDICATORS: (Providers should not edit this section) Based on documentation of "acute altered mental status. This is most likely hepatic encephalopathy". Ammonia level of 76. Pt. treated with Lactulose. Diagnosis: Hepatic encephalopathy Please clarify the following: (x ) The above diagnosis was monitored, evaluated, and/or treated and is a confirmed diagnosis ( ) The above diagnosis was ruled out ( ) Other, please specify: ( ) Clinically unable to determine COMMENTS: PLEASE ALSO DOCUMENT RESPONSE IN PROGRESS NOTES AND/OR DISCHARGE SUMMARY Use of terms such as suspected, likely, or probable (associated with a specific diagnosis that is being evaluated, monitored, or treated as if it exists) are acceptable and can be restated in the discharge summary if not ruled out. MTDD
== END 2016-11-04 18:06 | disposition hospice, home (50) | DRG 441 ==
LOC: N.ED 14:47 → SUATTDRO 17:08 → N.EDINP 17:08 → N.2E 18:34
PROVIDERS: ADMIT Internal Medicine; ATTEND Internal Medicine